=== PATIENT | female | born 1940 | race Caucasian/White ===

== ENCOUNTER 2016-03-27 | Outpatient (CLI) | END 2016-03-27 22:13 | disposition critical access hospital (66) | CPT/HCPCS: A0425; A0429 ==

== ENCOUNTER 2016-03-27 | Emergency (ER) | payer MEDICARE, MEDICAID | END 2016-03-28 00:37 | disposition home or self-care (01) ==

== ENCOUNTER 2016-03-29 12:32 | Outpatient (CLI) | END 2016-03-29 12:33 | disposition home or self-care (01) ==

== ENCOUNTER 2016-04-02 | Outpatient (CLI) | payer MEDICARE, MEDICAID | END 2016-04-02 07:44 | disposition critical access hospital (66) | CPT/HCPCS: A0425; A0429 ==

== ENCOUNTER 2016-04-02 07:46 | Emergency (ER) | payer MEDICARE, MEDICAID | END 2016-04-02 10:17 | disposition home or self-care (01) | DX: E11.649 Type 2 diabetes mellitus with hypoglycemia without coma (principal); E11.51 Type 2 diabetes mellitus with diabetic peripheral angiopathy without gangrene; Z79.4 Long term (current) use of insulin; I11.0 Hypertensive heart disease with heart failure; I50.9 Heart failure, unspecified; I25.2 Old myocardial infarction; Z79.82 Long term (current) use of aspirin; J44.9 Chronic obstructive pulmonary disease, unspecified; F03.90 Unspecified dementia, unspecified severity, without behavioral disturbance, psychotic disturbance, mood disturbance, and anxiety ==

== ENCOUNTER 2016-04-06 | Outpatient (CLI) | payer MEDICARE, MEDICAID | END 2016-04-06 02:44 | disposition EMS.NT | DX: R47.81 Slurred speech (principal) ==

== ENCOUNTER 2016-04-14 | Outpatient (CLI) | payer MEDICARE, MEDICAID | END 2016-04-14 23:33 | disposition EMS.NT | DX: E16.2 Hypoglycemia, unspecified (principal) ==

== ENCOUNTER 2016-04-20 08:50 | Outpatient (CLI) | payer MEDICARE, MEDICAID | END 2016-04-20 08:51 | disposition home or self-care (01) | DX: Z71.3 Dietary counseling and surveillance (principal); E11.8 Type 2 diabetes mellitus with unspecified complications ==

== ENCOUNTER 2016-04-21 | Outpatient (CLI) | payer MEDICARE, MEDICAID | END 2016-04-21 01:46 | disposition EMS.NT | DX: Z03.89 Encounter for observation for other suspected diseases and conditions ruled out (principal) ==

== ENCOUNTER 2016-05-10 23:30 | Outpatient (CLI) | payer MEDICARE, MEDICAID | END 2016-05-10 23:31 | disposition critical access hospital (66) | DX: R06.02 Shortness of breath (principal) | CPT/HCPCS: A0425; A0427 ==

== ENCOUNTER 2016-05-10 23:32 | Emergency (ER) | payer MEDICARE, MEDICAID ==
[2016-05-11] MEDS ORDERED: FUROSEMIDE 40 MG/4 ML VIAL IVP STA (01:16)
[2016-05-11] MEDS ORDERED: FUROSEMIDE 40 MG/4 ML VIAL ONE (01:21)
== END 2016-05-11 03:17 | disposition home or self-care (01) ==
DX: I11.0 Hypertensive heart disease with heart failure (principal); I50.23 Acute on chronic systolic (congestive) heart failure; J44.9 Chronic obstructive pulmonary disease, unspecified; E11.51 Type 2 diabetes mellitus with diabetic peripheral angiopathy without gangrene; Z79.4 Long term (current) use of insulin; I25.10 Atherosclerotic heart disease of native coronary artery without angina pectoris; I25.2 Old myocardial infarction; F03.90 Unspecified dementia, unspecified severity, without behavioral disturbance, psychotic disturbance, mood disturbance, and anxiety; Z79.82 Long term (current) use of aspirin

== ENCOUNTER 2016-06-05 09:20 | Outpatient (CLI) | payer MEDICARE, MEDICAID | END 2016-06-05 09:21 | disposition home or self-care (01) | DX: I12.9 Hypertensive chronic kidney disease with stage 1 through stage 4 chronic kidney disease, or unspecified chronic kidney disease (principal); N18.4 Chronic kidney disease, stage 4 (severe); E11.9 Type 2 diabetes mellitus without complications; E78.5 Hyperlipidemia, unspecified ==

== ENCOUNTER 2016-09-21 04:33 | Outpatient (CLI) | payer MEDICARE, MEDICAID | END 2016-09-21 04:34 | disposition critical access hospital (66) | LOC: EMS 04:33 | PROVIDERS: ATTEND Surgery | DX: R07.9 Chest pain, unspecified (principal); R05 Cough | CPT/HCPCS: A0425; A0427 ==

== ENCOUNTER 2016-09-21 04:39 | Observation (INO) | payer MEDICARE, MEDICAID ==
--- NOTE | 2016-09-21 04:50 | ED Physician Documentation ---
History of Present Illness - Stated complaint Stated Complaint: CHEST DISCOMFORT - Chief complaint Chief Complaint: Cardiac - History obtained from History obtained from: Patient, EMS - History of Present Illness Timing: How many hours ago (3) Pain level max: 2 Pain level now: 1 Improved by: nothing Worsened by: nothing - Additonal information Additional information: Patient is a 76-year-old female who approximately 2-3 hours ago had chest pain, substernal, nonradiating. Also shortness of breath. This is since resolved. Review of Systems Ten Systems: 10 systems reviewed and negative Constitutional: denies: Fever, Chills Nose: denies: Rhinorrhea / runny nose, Congestion Throat: denies: Sore throat Respiratory: denies: Cough, Hemoptysis, Wheezing GI: denies: Abdominal Pain, Nausea, Vomiting, Diarrhea Skin: denies: Rash Musculoskeletal: denies: Neck pain, Back pain Neurologic: denies: Headache PD PAST MEDICAL HISTORY - Past Medical History Cardiovascular: Congestive heart failure, Hypertension, Coronary artery disease , Peripheral Vascular Disease, [place] Respiratory: COPD Neuro: Dementia Endocrine/Autoimmune: Type 2 diabetes GI: Other MANAGER FUNCTIONAL: None : Renal insuffiency HEENT: None Psych: Depression, Post traumatic stress disorder Musculoskeletal: Osteoarthritis Derm: None - Past Surgical History Past Surgical History: Yes Cardiovascular: Other HEENT: Tonsil/Adenoidectomy - Present Medications Home Medications: Ambulatory Orders Medication Instructions Recorded Confirmed Amlodipine Besylate 5 mg PO BID 11/23/15 07/25/16 Aspirin [Aspir-Low] 81 mg PO DAILY 11/23/15 07/25/16 Atorvastatin Calcium 80 mg PO QPM 11/23/15 07/25/16 Furosemide 40 mg PO DAILY 11/23/15 07/25/16 Insulin NPH Hum/Reg Insulin Hm 15 units SQ QDBREAKFAST 11/23/15 07/25/16 [Novolin 70-30 100 Unit/ml Vial] Insulin NPH Hum/Reg Insulin Hm 15 units SQ QDDINNER 11/23/15 07/25/16 [Novolin 70-30 100 Unit/ml Vial] Lisinopril 5 mg PO DAILY 11/23/15 07/25/16 cloNIDine [Catapres] 0.1 mg PO BID #20 tablet 01/15/16 07/25/16 Carvedilol 12.5 mg PO BID 02/17/16 07/25/16 Isosorbide Mononitrate [Isosorbide 60 mg PO DAILY 02/17/16 07/25/16 Mononitrate ER] Colostrum, Bovine [Colostrum] 500 mg PO DAILY 04/05/16 07/25/16 Docusate Sodium 250Mg Capsule 250 mg PO DAILY 04/05/16 07/25/16 [Colace 250Mg Capsule] Fluoxetine HCl [Prozac] 10 mg PO DAILY 04/05/16 07/25/16 Magnesium Oxide [Magnesium] 250 mg PO DAILY 04/05/16 07/25/16 - Allergies Allergies/Adverse Reactions: Allergies Allergy/AdvReac Type Severity Reaction Status Date / Time No Known Drug Allergies Allergy Verified 09/21/16 04:46 - Social History Does the pt smoke?: No Smoking Status: Never smoker Does the pt drink ETOH?: No Does the pt have substance abuse?: No - Immunizations Immunizations are current?: No Immunizations: TDAP >10years/unknown - POLST Patient has POLST: Yes PD ED PE NORMAL - Vitals Vital signs reviewed: Yes - General General: Alert and oriented X 3, No acute distress - HEENT HEENT: Moist mucous membranes - Neck Neck: Supple, no meningeal sign - Cardiac Cardiac: RRR, Strong equal pulses - Respiratory Respiratory: No respiratory distress, Clear bilaterally - Abdomen Abdomen: Soft, Non tender - Back Back: No spinal TTP - Derm Derm: Warm and dry - Extremities Extremities: No calf tenderness / cord - Neuro Neuro: Alert and oriented X 3 - Psych Psych: Normal mood, Normal affect Results - Vitals Vitals: Vital Signs - 24 hr 09/21/16 09/21/16 09/21/16 04:41 04:47 05:35 Temperature 36.2 C L Heart Rate 63 63 57 L Respiratory 14 13 15 Rate Blood Pressure 166/70 H 169/88 H 187/69 H O2 Saturation 96 97 95 Oxygen O2 Source [] Room air O2 Source Room air - EKG (time done) 0454 Rate: Rate (enter#) (60) Rhythm: NSR [place]: Normal Intervals: Normal TN QRS: Normal, LVH (with repol abnormality) Computer interpretation: Agree with computer - Labs Labs: Laboratory Tests 09/21/16 09/21/16 09/21/16 05:02 05:02 05:02 WBC 8.0 RBC 3.70 L Hgb 11.0 L Hct 32.1 L MCV 86.9 MCH 29.7 MCHC 34.1 RDW 14.0 Plt Count 270 MPV 8.0 Neut # 4.4 Lymph # 2.2 [place] # 0.8 Eos # 0.4 Baso # 0.1 Absolute Nucleated RBC 0.00 Nucleated RBCs 0.0 Sodium 139 Potassium 4.3 Chloride 103 Carbon Dioxide 26 Anion Gap 10.0 BUN 46 H Creatinine 2.2 H Estimated GFR (MDRD) 22 L Glucose 103 H Calcium 9.3 Total Bilirubin 0.5 AST 19 ALT 13 Alkaline Phosphatase 67 Troponin I 0.14 B-Natriuretic Peptide Total Protein 6.9 Albumin 3.9 Globulin 3.0 Albumin/Globulin Ratio 1.3 Lipase 32 09/21/16 05:02 WBC RBC Hgb Hct MCV MCH MCHC RDW Plt Count MPV Neut # Lymph # [place] # Eos # Baso # Absolute Nucleated RBC Nucleated RBCs Sodium Potassium Chloride Carbon Dioxide Anion Gap BUN Creatinine Estimated GFR (MDRD) Glucose Calcium Total Bilirubin AST ALT Alkaline Phosphatase Troponin I B-Natriuretic Peptide 132 H Total Protein Albumin Globulin Albumin/Globulin Ratio Lipase - Rads (name of study) cxr Radiology: Prelim report reviewed, EMP read contemporaneously, See rad report ( no acute disease) PD MEDICAL DECISION MAKING - ED course Complexity details: reviewed results, re-evaluated patient, considered differential, d/w patient ED course: Patient is a 76-year-old female who presents to the emergency department with atypical chest pain today, but is found to have a mild elevation of her troponin , though still within the indeterminate range. Looking back through her records it appears that this is occurred several times before. She is well- appearing, nontoxic. Afebrile. No symptoms in the emergency department. Sitting quietly and reading a book. Discussed the case with Dr. Bradshaw and we will admit the patient for serial cardiac enzymes and rule out FL. This document was made in part using voice recognition software. While efforts are made to proofread this document, sound alike and grammatical errors may occur. Departure - Departure Disposition: ED Place in Observation Clinical Impression: Chest pain, Diabetes Condition: Stable
[2016-09-21 05:11] LABS: BASOPHILS # (AUTO) 0.1 10^3/uL (0.0-0.1); BASOPHILS % (AUTO) 1.2 %; EOSINOPHILS # (AUTO) 0.4 10^3/uL (0.0-0.7); EOSINOPHILS % (AUTO) 5.4 %; HCT - HEMATOCRIT 32.1 % (37.0-47.0); LYMPHOCYTES # (AUTO) 2.2 10^3/uL (1.5-3.5); LYMPHOCYTES % (AUTO) 27.7 %; MEAN CORPUSCULAR HEMOGLOBIN 29.7 pg (27.0-31.0); MEAN CORPUSCULAR HGB CONC 34.1 g/dL (32.0-36.0); MEAN CORPUSCULAR VOLUME 86.9 fL (81.0-99.0); MONOCYTES # (AUTO) 0.8 10^3/uL (0.0-1.0); MONOCYTES % (AUTO) 10.2 %; NEUTROPHILS # (AUTO) 4.4 10^3/uL (1.5-6.6); NEUTROPHILS % (AUTO) 55.5 %
[2016-09-21 05:24] LABS: ALBUMIN/GLOBULIN RATIO 1.3 (1.0-2.2); BILIRUBIN,TOTAL 0.5 mg/dL (0.2-1.0); CALCIUM 9.3 mg/dL (8.5-10.3); CREATININE 2.2 mg/dL (0.4-1.0); POTASSIUM 4.3 mmol/L (3.5-5.0); TOTAL PROTEIN 6.9 g/dL (6.7-8.2)
--- NOTE | 2016-09-21 05:33 | XRAY Preliminary Report ---
Exam: XR Chest 1 View IMPRESSION: Negative single view chest. [facility] SITE ID: [id number]
--- NOTE | 2016-09-21 05:35 | XRAY Report ---
EXAM: CHEST RADIOGRAPHY EXAM DATE: 09/21/2016 05:21 AM. CLINICAL HISTORY: Chest pain. COMPARISON: 05/11/2016. TECHNIQUE: 1 view. FINDINGS: Lungs/Pleura: No focal opacities evident. No pleural effusion. No pneumothorax. Mediastinum: Within exam limitations, cardiomediastinal contour is normal. Other: None. IMPRESSION: Negative single view chest. [facility] Referring Provider Line: [phone] SITE ID: [id number]
[2016-09-21] MEDS ORDERED: SODIUM CHLORIDE FLUSH 0.9% 10 ML SYRINGE IVP PRN (05:49)
[2016-09-21] MEDS ORDERED: NITROGLYCERIN SL 0.4 MG TABLET SL PRN (05:49)
[2016-09-21] MEDS ORDERED: ONDANSETRON 4 MG/2 ML VIAL IVP PRN (05:49)
[2016-09-21] MEDS ORDERED: ACETAMINOPHEN 325 MG TABLET PO PRN (05:49)
[2016-09-21] MEDS ORDERED: PROCHLORPERAZINE 10 MG/2 ML VIAL IVP PRN (05:49)
[2016-09-21] MEDS ORDERED: HYDROcod/ACETAM 5/325 MG TABLET PO PRN (05:49)
--- NOTE | 2016-09-21 06:24 | HISTORY & PHYSICAL EXAMINATION ---
Chief Complaint - Chief Complaint Chief Complaint: chest pain History of Present Illness - Admitted From Admitted From:: emergency department - History Obtained From Records Reviewed: yes History obtained from: patient Exam Limitations: none - History of Present Illness HPI Comment/Other: Patient is a very pleasant 76-year-old female with a past medical history significant for congestive heart failure with a reduced ejection fraction of 45% , hypertension, hyperlipidemia, poorly controlled type II diabetes, coronary artery disease with VA in 2015, prior history of TIA and CTD stage IV who presented to the emergency department today with a complaint of chest pain. The patient states that for the last week or 2 she's been having chest congestion and coughing. States that there's been mucus buildup in her throat and she's also having a sore throat. The patient states that with all the coughing she is began having pain in the sides of her chest. She states that tonight while she was in bed she began having substernal chest pressure. She states that it was a 3/10, pressure-like, nonradiating. She felt as though it was her congestive heart failure and she was concerned about it becoming much worse therefore she called 911. She states that she had no associated nausea, diaphoresis, palpitations, shortness of air or coughing. The patient states that she did feel congested in she did take some Lasix at home. The patient denied any fevers or chills. On route to the emergency department the patient was given a dose of nitroglycerin and an aspirin. The patient states by the time she arrived in the emergency department her pain was completely resolved. On presentation to the emergency department the patient was afebrile and hypertensive otherwise her vital signs were within normal limits. The patient's initial lab work revealed a normal CBC, creatinine of 2.2 in your the patient's baseline, BNP of 132 and a troponin of 0.14 which is near the patient's baseline. The patient's EKG was unchanged from her previous EKGs. The patient also had a chest x-ray which showed no acute normality in the chest. Given the patient's risk factors and her troponin of 0.14 the emergency room physician felt it necessary to place the patient in observation for a chest pain rule out. Review of Systems - Constitutional Constitutional: denies: Fatigue, Fever, Chills, Malaise, Weakness, Poor appetite , Diaphoresis, Night sweats, Weight gain, Weight loss - Eyes Eyes: denies: Pain, Irritation, Amaurosis, Blurred vision, Field loss, Vision loss, Dipolpia - Ears, Nose & Throat Ears, Nose & Throat: reports: Sore throat. denies: Ear pain, Hearing loss, Tinnitus, Vertigo, Nasal pain, Nasal obstruction, Nasal congestion, Hoarseness - Cardiovascular Cariovascular: reports: Chest pain. denies: Irregular heart rate, Palpitations , Edema, Lightheadedness, Syncope, Exertional dyspnea, Decr. exercise tolerance , Orthopnea - Respiratory Respiratory: reports: Cough, Sputum production. denies: Wheezing, Hemoptysis, Orthopnea, SOB at rest, SOB with exertion, Pleuritic pain - Gastrointestinal Gastrointestinal: denies: Abdominal pain, Abdominal distention, Constipation, Diarrhea, Change in bowel habits, Black stools, Bloody stools, Nausea, Vomiting , Peter blood emesis, Coffee grounds emesis, Bloating, Poor appetite - Genitourinary Genitourinary: denies: Dysuria, Frequency, Urgency, Hematuria, Incontinence, Flank pain, Nocturia - Musculoskeletal Musculoskeletal: denies: Muscle pain, Back pain, Muscle aches, Stiffness, Limited range of motion, Muscle weakness, Gout, Joint pain, Joint swelling - Integumentary Integumentary: denies: Rash, Pruritis, Lesions, Dryness - Neurological Neurological: denies: General weakness, Focal weakness, Headache, Dizziness, Memory problems, Abnormal gait, Seizures, Slurred speech - Psychiatric Psychiatric: denies: Depression, Anxiety, Suicidal - Endocrine Endocrine: denies: Polyuria, Polydypsia, Polyphagia, Intolerance to cold, Intolerance to heat - Hematologic/Lymphatic Hematologic/Lymphatic: denies: Anemia, Lymphadenopathy History - Past Medical History Cardiovascular: reports: Congestive heart failure, Hypertension, Coronary artery disease, Peripheral Vascular Disease, [place] Respiratory: reports: COPD Neuro: reports: Dementia Endocrine/Autoimmune: reports: Type 2 diabetes GI: reports: Other 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 TIA. 2. COPD. 3. Congestive heart failure with a reduced EF. 4. Hypertension. 5. Hyperlipidemia. 6. Type II diabetes. 7. Retinopathy. 8. Peripheral neuropathy. 9. Chronic kidney disease stage IV. 10. Osteoarthritis. 11. Coronary artery disease with VA in 2015. 12. Dementia - Past Surgical History Cardiovascular: reports: Other HEENT: reports: Tonsil/Adenoidectomy Other past surgical history: 1. Tonsillectomy. 2. Adenoidectomy. 3. Right endarterectomy - Family & Social History Family History: Mother: (VA at 82 (mom) stroke with aneurysm at 55 (dad )), VA (at 82), Father: , CVA/TIA (at 55) Family History Comment/Other: Her mother of an VA at the age of 82. Father of a stroke with an aneurysm at the age of 55. Living arrangement: At home Living Situation: With caregiver(s) (2 caregivers) Social History Notes: The patient lives in [place] just across [address] from the hospital in [facility]. She lives alone but does have 2 caregivers. She uses a walker at home. She is very independent. She does not have any family in the area but does have a sister in [place]. The patient is originally from the [facility]. She traveled throughout the country as her was in the [employer]. She traveled throughout the country as her was in the [employer]. She is . She has 3 children. 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 She states that she is never smoked, does not drink alcohol and denies any illicit drug use. - Substance History Use: Uses substance without health or social issues: NONE Abuse: Recurrent use of substance despite neg consequences: NONE Dependence: Experiences withdrawal or developed tolerances: NONE - POLST Patient has POLST: Yes POLST Status: Full Code Meds/Allgy - Home Medications Home Medications: Ambulatory Orders Medication Instructions Recorded Confirmed Amlodipine Besylate 5 mg PO BID 11/23/15 07/25/16 Aspirin [Aspir-Low] 81 mg PO DAILY 11/23/15 07/25/16 Atorvastatin Calcium 80 mg PO QPM 11/23/15 07/25/16 Furosemide 40 mg PO DAILY 11/23/15 07/25/16 Insulin NPH Hum/Reg Insulin Hm 15 units SQ QDBREAKFAST 11/23/15 07/25/16 [Novolin 70-30 100 Unit/ml Vial] Insulin NPH Hum/Reg Insulin Hm 15 units SQ QDDINNER 11/23/15 07/25/16 [Novolin 70-30 100 Unit/ml Vial] Lisinopril 5 mg PO DAILY 11/23/15 07/25/16 cloNIDine [Catapres] 0.1 mg PO BID #20 tablet 01/15/16 07/25/16 Carvedilol 12.5 mg PO BID 02/17/16 07/25/16 Isosorbide Mononitrate [Isosorbide 60 mg PO DAILY 02/17/16 07/25/16 Mononitrate ER] Colostrum, Bovine [Colostrum] 500 mg PO DAILY 04/05/16 07/25/16 Docusate Sodium 250Mg Capsule 250 mg PO DAILY 04/05/16 07/25/16 [Colace 250Mg Capsule] Fluoxetine HCl [Prozac] 10 mg PO DAILY 04/05/16 07/25/16 Magnesium Oxide [Magnesium] 250 mg PO DAILY 04/05/16 07/25/16 - Allergies Allergies/Adverse Reactions: Allergies Allergy/AdvReac Type Severity Reaction Status Date / Time No Known Drug Allergies Allergy Verified 09/21/16 04:46 Exam - Vital Signs Reviewed Vital Signs: Yes Vital Signs: Vital Signs x48h Temp Pulse Resp BP Pulse Ox 09/21/16 05:35 57 L 15 187/69 H 95 09/21/16 04:47 63 13 169/88 H 97 09/21/16 04:41 36.2 C L 63 14 166/70 H 96 - Physical Exam General Appearance: positive: No acute distress, Alert Eyes Bilateral: positive: Normal inspection, PERRL, EOMI, No lid inflammation, Conjunctivae nml, No scleral icterus ENT: positive: ENT inspection nml, Pharynx nml, No signs of dehydration. negative: Purulent nasal drainage, Pharyngeal erythema, Oral lesions Neck: positive: Nml inspection, Thyroid nml, No JVD, Trachea midline. negative : Thyromegaly, Lymphadenopathy (R), Lymphadenopathy (L), Carotid bruit, Tracheal deviation Respiratory: positive: Chest non-tender, No respiratory distress, Breath sounds nml. negative: Wheezes, Rales, Rhonchi Cardiovascular: positive: Regular rate & rhythm, No murmur, No gallop Peripheral Pulses: positive: 2+ Abdomen: positive: Non-tender, No organomegaly, Nml bowel sounds, No distention. negative: Guarding, Rebound, Hepatomegaly Back: positive: Nml inspection. negative: CVA tenderness (R), CVA tenderness (L ) Skin: positive: Color nml, No rash, Warm. negative: Cyanosis, Pallor Extremities: positive: Non-tender, Full ROM, Nml appearance, No pedal edema. negative: Joint swelling Neurologic/Psychiatric: positive: Oriented x3, CN's nml (2-12), Motor nml, Sensation nml, Mood/affect nml Conclusion/Plan - Problem List (1) Chest pain Conclusion/Plan: Patient presented with chest pain while at rest that was pressure like located substernally, without radiation and without any associated symptoms. She states it was a 3/10 and was relieved with aspirin and nitro given to her by paramedics. She has many risk factors including age, diabetes, hypertension, hyperlipidemia, previous VA. Her initial EKG was unchanged from previous and initial troponin was 0.14 which is near her baseline due to her CKD. Plan: Serial Trops x2 q6 hours Echo Tele monitoring Nitro prn ASA Lipitor (2) Diabetes type 2, uncontrolled Conclusion/Plan: Patient blood glucose is well controlled today unlike on previous hospitalization Will continue home dose of lantus Diabetic diet Will place on sliding scale insulin Check HbA1C Monitor BG ACHS Qualifiers: Diabetes mellitus complication detail: with polyneuropathy Diabetes mellitus terminal operations manager insulin use: with terminal operations manager use (3) CHF (congestive heart failure) Conclusion/Plan: No currently in an exacerbation On optimal medical treatment with coreg, lisinopril and lasix Continue home meds Echo as previous echo greater than 1 year ago Qualifiers: Congestive heart failure type: systolic (4) Chronic kidney disease, stage 4 (severe) Conclusion/Plan: Central 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
[2016-09-21] MEDS: INSULIN ASPART 300 UNIT/3 ML PEN SUBQ SCH ×4 (07:39→20:49)
[2016-09-21] MEDS: PANTOPRAZOLE 40 MG TABLET PO SCH (07:43)
[2016-09-21] MEDS ORDERED: ISOSORBIDE MONONITRATE ER 30 MG TABLET PO SCH (09:00)
[2016-09-21] MEDS ORDERED: LISINOPRIL 5 MG TABLET PO SCH (09:00)
[2016-09-21] MEDS ORDERED: FLUoxetine 10 MG CAPSULE PO SCH (09:00)
[2016-09-21] MEDS ORDERED: [UNRECOGNIZED DRUG - OTHER] PO SCH (09:00)
[2016-09-21] MEDS ORDERED: amLODIPine 5 MG TABLET PO SCH (09:00)
[2016-09-21] MEDS ORDERED: CARVEDILOL 12.5 MG TABLET PO SCH (09:00)
[2016-09-21] MEDS: FUROSEMIDE 40 MG TABLET PO SCH (10:35)
[2016-09-21] MEDS: INSULIN 70/30 HUMAN 100 UNIT/1 ML 10 ML MDV SUBQ SCH (11:05)
[2016-09-21] MEDS: MAGNESIUM OXIDE 400 MG TABLET PO SCH (11:07)
[2016-09-21] MEDS: ASPIRIN EC 81 MG TABLET PO SCH (11:08)
[2016-09-21] MEDS: cloNIDine 0.1 MG TABLET PO SCH ×2 (11:15→20:48)
[2016-09-21] MEDS: POLYETHYLENE GLYCOL 3350 17 GM PACKET PO SCH (11:18)
[2016-09-21] MEDS: SODIUM CHLORIDE FLUSH 0.9% 10 ML SYRINGE IVP SCH ×3 (11:19→20:49)
[2016-09-21] MEDS: HEPARIN 5,000 UNIT/ML VIAL SUBQ SCH ×2 (11:21→20:48)
[2016-09-21 11:44] LABS: HEMOGLOBIN A1C 0.76 g/dL
[2016-09-21] MEDS: SODIUM CHLORIDE 0.9% 500 ML IV ONE (14:45)
--- NOTE | 2016-09-21 16:29 | PROVIDER PROGRESS NOTE ---
Assessment/Plan - Problem List (1) Chest pain Assessment/Plan: (1) Chest pain Conclusion/Plan: Patient presented with chest pain while at rest that was pressure like located substernally, without radiation and without any associated symptoms. She states it was a 3/10 and was relieved with aspirin and nitro given to her by paramedics. She has many risk factors including age, diabetes, hypertension, hyperlipidemia, previous [place]. Her initial EKG was unchanged from previous and initial troponin was 0.14 which is near her baseline due to her CKD. CP resolved Plan: Serial Trops x2 are negative Echo pending # Htn on multiple bp meds, sx hypotension after receiving pt's home meds pt unable to tell me what she is taking at home, says she is confused about her medications. Will review home meds with pharmacy and hold most meds until rx is indicated. 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 - not billed - Current Meds Current Meds: Current Medications Generic Name Dose Route Start Last Admin Trade Name Freq PRN Reason Stop Dose Admin Aspirin 81 mg 09/21/16 09:00 09/21/16 11:08 Ecotrin PO 81 mg DAILY MARNI Administration Clonidine HCl 0.1 mg 09/21/16 09:00 09/21/16 11:15 Catapres PO 0.1 mg BID MARNI Administration Fluoxetine HCl 10 mg 09/21/16 09:00 09/21/16 11:13 Prozac PO Not Given DAILY MARNI Furosemide 40 mg 09/21/16 09:00 09/21/16 10:35 Lasix PO Not Given DAILY MARNI Heparin Sodium (Porcine) 5,000 unit 09/21/16 09:00 09/21/16 11:21 SUBQ 5,000 unit BID MARNI Administration Insulin Aspart 1 - 9 unit 09/21/16 08:00 09/21/16 12:28 Novolog SUBQ 3 unit 0800,1200,1700,2100 MARNI Administration Protocol Insulin Human Isoph/Insulin Regular 15 unit 09/21/16 10:00 09/21/16 11:05 Novolin SUBQ 15 unit QDBREAKFAST MARNI Administration Isosorbide Mononitrate 60 mg 09/21/16 09:00 09/21/16 11:16 Imdur PO 60 mg DAILY MARNI Administration Magnesium Oxide 400 mg 09/21/16 08:00 09/21/16 11:07 Mag Ox PO 400 mg DAILYWM MARNI Administration Pantoprazole Sodium 40 mg 09/21/16 07:00 09/21/16 07:43 Protonix PO 40 mg QDAC MARNI Administration Polyethylene Glycol 17 gm 09/21/16 09:00 09/21/16 11:18 Miralax PO Not Given DAILY [facility] Sodium Chloride 10 ml 09/21/16 06:00 09/21/16 15:55 Normal Saline Flush 0.9% IVP Not Given Q8HR MARNI - Lab Result Lab results reviewed: Yes Fish Bone Diagrams: 09/21/16 05:02 09/21/16 05:02 - Additional Planning My Orders: My Active Orders 09/21/16 13:38 Carvedilol [Coreg] 6.25 mg PO BID Subjective - Subjective Patient Reports: Other Nursing Reports: Other (pt reported mild chest discomfort on admit. RN reports pt bp dropped significantly after she was given medications she was thought to be taking at home. Was sx and improved with 500 NS bolus) Objective Vital Signs: Vital Signs - 24 hr 09/21/16 09/21/16 09/21/16 06:25 06:27 06:51 Temperature 36.5 C 36.5 C Heart Rate 63 Heart Rate [ 55 L 55 L Brachial] Respiratory 18 18 18 Rate Blood Pressure 174/71 H Blood Pressure 169/78 H 169/78 H [Left Brachial artery] Blood Pressure 196/75 H 196/75 H [Right Brachial artery] O2 Saturation 99 99 99 09/21/16 09/21/16 09/21/16 07:53 11:38 13:40 Temperature 36.7 C 36.7 C Heart Rate Heart Rate [ 55 L 63 Brachial] Respiratory 18 17 Rate Blood Pressure Blood Pressure 180/75 H 76/50 L [Left Brachial artery] Blood Pressure 172/73 H 80/60 L [Right Brachial artery] O2 Saturation 100 99 09/21/16 14:20 Temperature Heart Rate Heart Rate [ Brachial] Respiratory Rate Blood Pressure Blood Pressure [Left Brachial artery] Blood Pressure 90/50 L [Right Brachial artery] O2 Saturation Oxygen O2 Source Room air I&O (Last 24 Hrs): Intake and Output Totals x24h 09/19/16 09/20/16 09/21/16 23:59 23:59 23:59 Intake Total 776 Balance 776 General: Alert, No acute distress, Other (talkative) - Results Results: Laboratory Results WBC 8.0 x10^3/uL (4.8-10.8) 09/21/16 05:02 RBC 3.70 10^6/uL (4.20-5.40) L 09/21/16 05:02 Hgb 11.0 g/dL (12.0-16.0) L 09/21/16 05:02 Hct 32.1 % (37.0-47.0) L 09/21/16 05:02 MCV 86.9 fL (81.0-99.0) 09/21/16 05:02 MCH 29.7 pg (27.0-31.0) 09/21/16 05:02 MCHC 34.1 g/dL (32.0-36.0) 09/21/16 05:02 RDW 14.0 % (12.0-15.0) 09/21/16 05:02 Plt Count 270 10^3/uL (130-450) 09/21/16 05:02 MPV 8.0 fL (7.9-10.8) 09/21/16 05:02 Neut # 4.4 10^3/uL (1.5-6.6) 09/21/16 05:02 Lymph # 2.2 10^3/uL (1.5-3.5) 09/21/16 05:02 Christian # 0.8 10^3/uL (0.0-1.0) 09/21/16 05:02 Eos # 0.4 10^3/uL (0.0-0.7) 09/21/16 05:02 Baso # 0.1 10^3/uL (0.0-0.1) 09/21/16 05:02 Absolute Nucleated RBC 0.00 x10^3/uL 09/21/16 05:02 Nucleated RBCs 0.0 /100WBC 09/21/16 05:02 Sodium 139 mmol/L (135-145) 09/21/16 05:02 Potassium 4.3 mmol/L (3.5-5.0) 09/21/16 05:02 Chloride 103 mmol/L (101-111) 09/21/16 05:02 Carbon Dioxide 26 mmol/L (21-32) 09/21/16 05:02 Anion Gap 10.0 (6-13) 09/21/16 05:02 BUN 46 mg/dL (6-20) H 09/21/16 05:02 Creatinine 2.2 mg/dL (0.4-1.0) H 09/21/16 05:02 Estimated GFR (MDRD) 22 (>89) L 09/21/16 05:02 Glucose 103 mg/dL (70-100) H 09/21/16 05:02 Glycated Hemoglobin 8.1 % (4.6-6.2) H 09/21/16 11:00 Estim Average Glucose 186 (70-100) H 09/21/16 11:00 Calcium 9.3 mg/dL (8.5-10.3) 09/21/16 05:02 Total Bilirubin 0.5 mg/dL (0.2-1.0) 09/21/16 05:02 AST 19 IU/L (10-42) 09/21/16 05:02 ALT 13 IU/L (10-60) 09/21/16 05:02 Alkaline Phosphatase 67 IU/L (42-121) 09/21/16 05:02 Troponin I 0.14 ng/mL (<0.49) 09/21/16 11:00 B-Natriuretic Peptide 132 pg/mL (5-100) H 09/21/16 05:02 Total Protein 6.9 g/dL (6.7-8.2) 09/21/16 05:02 Albumin 3.9 g/dL (3.2-5.5) 09/21/16 05:02 Globulin 3.0 g/dL (2.1-4.2) 09/21/16 05:02 Albumin/Globulin Ratio 1.3 (1.0-2.2) 09/21/16 05:02 Lipase 32 U/L (22-51) 09/21/16 05:02
[2016-09-21] MEDS ORDERED: INSULIN 70/30 HUMAN 100 UNIT/1 ML 10 ML MDV SUBQ SCH (17:00)
[2016-09-21] MEDS: CARVEDILOL 3.125 MG TABLET PO SCH (20:48)
[2016-09-21] MEDS ORDERED: ATORVASTATIN 40 MG TABLET PO SCH ×2 (21:00)
[2016-09-22] MEDS ORDERED: ZOLPIDEM 5 MG TABLET PO PRN (00:08)
[2016-09-22] MEDS: PANTOPRAZOLE 40 MG TABLET PO SCH (06:15)
[2016-09-22] MEDS: SODIUM CHLORIDE FLUSH 0.9% 10 ML SYRINGE IVP SCH ×2 (06:16→12:33)
[2016-09-22 07:02] LABS: BASOPHILS # (AUTO) 0.1 10^3/uL (0.0-0.1); BASOPHILS % (AUTO) 0.7 %; EOSINOPHILS # (AUTO) 0.5 10^3/uL (0.0-0.7); EOSINOPHILS % (AUTO) 6.5 %; HCT - HEMATOCRIT 34.8 % (37.0-47.0); HGB - HEMOGLOBIN 11.3 g/dL (12.0-16.0); MEAN CORPUSCULAR HEMOGLOBIN 28.8 pg (27.0-31.0); MEAN CORPUSCULAR HGB CONC 32.6 g/dL (32.0-36.0); MEAN CORPUSCULAR VOLUME 88.2 fL (81.0-99.0); MEAN PLATELET VOLUME 8.4 fL (7.9-10.8); MONOCYTES # (AUTO) 0.5 10^3/uL (0.0-1.0); MONOCYTES % (AUTO) 7.2 %; NEUTROPHILS # (AUTO) 3.2 10^3/uL (1.5-6.6); NEUTROPHILS % (AUTO) 44.6 %; RED BLOOD COUNT 3.94 10^6/uL (4.20-5.40); RED CELL DISTRIBUTION WIDTH 13.8 % (12.0-15.0); UNCORRECTED WHITE BLOOD COUNT 7.3 x10^3/uL; WHITE BLOOD COUNT 7.3 x10^3/uL (4.8-10.8)
[2016-09-22 07:10] LABS: ALBUMIN/GLOBULIN RATIO 1.1 (1.0-2.2); BILIRUBIN,TOTAL 0.6 mg/dL (0.2-1.0); CALCIUM 9.4 mg/dL (8.5-10.3); CREATININE 2.2 mg/dL (0.4-1.0); POTASSIUM 4.3 mmol/L (3.5-5.0); TOTAL PROTEIN 6.8 g/dL (6.7-8.2)
[2016-09-22] MEDS ORDERED: ISOSORBIDE MONONITRATE ER 30 MG TABLET PO SCH (09:00)
[2016-09-22] MEDS: INSULIN 70/30 HUMAN 100 UNIT/1 ML 10 ML MDV SUBQ SCH (09:19)
[2016-09-22] MEDS: INSULIN ASPART 300 UNIT/3 ML PEN SUBQ SCH ×2 (09:19→12:32)
[2016-09-22] MEDS: FUROSEMIDE 40 MG TABLET PO SCH (09:30)
[2016-09-22] MEDS: CARVEDILOL 3.125 MG TABLET PO SCH (09:32)
[2016-09-22] MEDS: cloNIDine 0.1 MG TABLET PO SCH (09:32)
[2016-09-22] MEDS: POLYETHYLENE GLYCOL 3350 17 GM PACKET PO SCH (09:46)
[2016-09-22] MEDS: ASPIRIN EC 81 MG TABLET PO SCH (09:46)
[2016-09-22] MEDS: MAGNESIUM OXIDE 400 MG TABLET PO SCH (09:46)
[2016-09-22] MEDS: HEPARIN 5,000 UNIT/ML VIAL SUBQ SCH (09:47)
[2016-09-22 11:41] VITALS: BP 157/70
--- NOTE | 2016-09-22 12:59 | Discharge Plan ---
Discharge Plan Disposition: 01 Home, Self Care Condition: Stable Diet: Diabetic Additional Instructions or Follow Up instructions: Please take all of your medication to your doctor to review. No Smoking: If you smoke, Please STOP! Call for help.
--- NOTE | 2016-09-23 11:14 | DISCHARGE SUMMARY ---
Date of admit 09/21/16 Date of discharge 09/22/16 DISCHARGE DIAGNOSES 1. Chest pain. 2. Type 2 diabetes, uncontrolled. 3. Congestive heart failure. 4. Chronic kidney disease, stage IV. 5. Medical noncompliance. BRIEF HISTORY OF PRESENT ILLNESS: Patient is a 76-year-old female with a past medical history significant for congestive heart failure with an EF at 45%, hypertension, hyperlipidemia, poorly controlled type 2 diabetes, coronary artery disease with [place] in 2015, prior history of TIA, and chronic kidney disease , who presented to the emergency department with vague complaint of chest pain. She states she thought she had congestive heart failure and was admitted for chest pain. HOSPITAL COURSE 1. Chest pain. Serial troponins were 0.14 with no increase. The patient had no further chest pain. She was monitored on Telemetry with no significant events. She had an echocardiogram, which showed overall left ventricular systolic function mildly impaired with an ejection fraction of 45% to 50%, and mild global hypokinesis. 2. Hypertension. Patient is on multiple blood pressure medications listed on her medication reconciliation. These were continued on admission including carvedilol, Lasix, lisinopril, Norvasc, Imdur, and clonidine. The patient received these medications and had symptomatic hypotension with a systolic blood pressure down to 70. She was given a bolus of 500 of normal saline with improvement of her symptoms and then another bolus of 250 IV normal saline. All of her blood pressure medications were held and after discussion with the patient and her care provider, the patient apparently does not take her blood pressure medication at home, she is very skeptical of physicians and does not trust their recommendations. Her care provider, who I called today, says that she refuses to take blood pressure medications. Her primary care provider wanted her to bring her medications to the visit and the patient would not do this. The patient apparently fired her primary care provider and is considering seeing a naturopathic doctor. I explained to the patient that it was difficult to provide safe care to her unless we, the providers, know what medications that she is taking. I stressed the importance of compliance with medications and if she does not want to take something that she just needs to make sure that her doctor is aware of this. The transplant case manager did provide the patient with recommendations for a new primary care provider. 3. Type 2 diabetes, uncontrolled. The patient was continued on home dose of Lantus. She was on a diabetic diet and a sliding scale insulin, and remained stable. 4. Congestive heart failure. No evidence of acute exacerbation. She was maintained on her Coreg, lisinopril and Lasix; however, they were held when she had a drop in her blood pressure. On discharge I recommended that she continue the Lasix, carvedilol and lisinopril, although if she is symptomatic then these doses will have to be decreased. 5. Chronic kidney disease, stage IV. Creatinine baseline at presentation. 6. Medical noncompliance. Encouraged the patient to find a primary care provider that she is willing to work with. I contacted her care provider, Yamel , who has worked with the patient in the past but is currently on leave but did provide useful insight. The patient was discharged home in stable condition. She is high risk for readmission due to medication noncompliance and also at risk of medication error. ACCORDING TO HER CARE PROVIDER - PT IS NOT TAKING ANY OF HER MEDICATIONS AT HOME. DISCHARGE MEDICATIONS 1. Continue aspirin 81 mg daily. 2. Carvedilol 12.5 mg twice a day. 3. Lasix 40 mg daily. 4. Insulin NPH/Regular 15 units twice daily. 5. Lisinopril 5 mg daily. 6. Magnesium 250 mg daily. 7. Patient was told to stop taking amlodipine, isosorbide and clonidine. Greater than 40 minutes spent on discharge of the patient. MTDD
== END 2016-09-22 14:44 | disposition home or self-care (01) ==
LOC: EDUNIT# → ED 04:39 → MS 05:49
PROVIDERS: ADMIT Internal Medicine; ATTEND Internal Medicine
DX: R07.89 Other chest pain (principal); E11.65 Type 2 diabetes mellitus with hyperglycemia; E11.22 Type 2 diabetes mellitus with diabetic chronic kidney disease; I13.0 Hypertensive heart and chronic kidney disease with heart failure and stage 1 through stage 4 chronic kidney disease, or unspecified chronic kidney disease; N18.4 Chronic kidney disease, stage 4 (severe); I50.20 Unspecified systolic (congestive) heart failure; I95.2 Hypotension due to drugs; T44.7X5A Adverse effect of beta-adrenoreceptor antagonists, initial encounter; T50.1X5A Adverse effect of loop [high-ceiling] diuretics, initial encounter; T46.4X5A Adverse effect of angiotensin-converting-enzyme inhibitors, initial encounter; T46.1X5A Adverse effect of calcium-channel blockers, initial encounter; T46.5X5A Adverse effect of other antihypertensive drugs, initial encounter; Y92.239 Unspecified place in hospital as the place of occurrence of the external cause; E78.5 Hyperlipidemia, unspecified; I25.10 Atherosclerotic heart disease of native coronary artery without angina pectoris; I73.9 Peripheral vascular disease, unspecified; E11.319 Type 2 diabetes mellitus with unspecified diabetic retinopathy without macular edema; E11.42 Type 2 diabetes mellitus with diabetic polyneuropathy; I25.2 Old myocardial infarction; F03.90 Unspecified dementia, unspecified severity, without behavioral disturbance, psychotic disturbance, mood disturbance, and anxiety; F32.9 Major depressive disorder, single episode, unspecified; F43.10 Post-traumatic stress disorder, unspecified; J44.9 Chronic obstructive pulmonary disease, unspecified; Z79.82 Long term (current) use of aspirin; Z79.4 Long term (current) use of insulin; Z86.73 Personal history of transient ischemic attack (TIA), and cerebral infarction without residual deficits; Z91.14 Patient's other noncompliance with medication regimen; Z82.3 Family history of stroke; Z82.49 Family history of ischemic heart disease and other diseases of the circulatory system
CPT/HCPCS: 36415; 71010; 80053; 83036; 83690; 83880; 84484; 85025; 93005; 93306; 96360; 96361; 99284; 99285; A9270; G0378; J1815

== ENCOUNTER 2016-10-23 08:37 | Outpatient (CLI) | payer MEDICARE, MEDICAID ==
[2016-10-23 09:49] LABS: ALBUMIN/GLOBULIN RATIO 1.3 (1.0-2.2); BILIRUBIN,TOTAL 0.7 mg/dL (0.2-1.0); CALCIUM 9.7 mg/dL (8.5-10.3); POTASSIUM 4.5 mmol/L (3.5-5.0); TOTAL PROTEIN 7.6 g/dL (6.7-8.2)
[2016-10-23 10:32] LABS: HEMOGLOBIN A1C 0.76 g/dL
== END 2016-10-23 08:38 | disposition home or self-care (01) ==
LOC: LAB 08:37
PROVIDERS: ATTEND Family Medicine
DX: E78.5 Hyperlipidemia, unspecified (principal); N18.4 Chronic kidney disease, stage 4 (severe); E11.9 Type 2 diabetes mellitus without complications; I10 Essential (primary) hypertension
CPT/HCPCS: 36415; 80053; 83036

== ENCOUNTER 2016-10-27 07:12 | Emergency (ER) | payer MEDICARE, MEDICAID ==
[2016-10-27 07:20] VITALS: BP 152/78
--- NOTE | 2016-10-27 07:45 | ED Physician Documentation ---
History of Present Illness - Stated complaint Stated Complaint: LEG PX - Chief complaint Chief Complaint: Ext Problem - History obtained from History obtained from: Patient - Additonal information Additional information: Patient is a 76-year-old female who lives across [address]. She is here with a complaint of pain in her legs bilaterally that radiates laterally up the legs and her buttocks bilaterally. This pain is not worse at night is not made worse by walking. She thinks sitting tends to make it worse when she gets up and walks around it gets better. She is concerned because she had a life screening examination included ultrasound of various areas of her body including her legs. The study demonstrated peripheral arterial disease she says. For this reason she is concerned about the leg pain. She does have a long history of diabetes which she controls well and, however, does have mild diabetic neuropathy. Review of systems: For pertinent positive and negatives in the review of systems please see the history of present illness, otherwise all other systems have been reviewed and are negative. Dragon disclaimer: Parts of this medical record were created using voice recognition technology. Because of the inherent limitations of this system, occasional same sounding word substitutions do occur and persist despite proofreading. Please read the document for context. 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 : Renal insuffiency HEENT: None Psych: Depression, Post traumatic stress disorder Musculoskeletal: Osteoarthritis Derm: None - Past Surgical History Past Surgical History: Yes Cardiovascular: Other HEENT: Tonsil/Adenoidectomy - Present Medications Home Medications: Ambulatory Orders Medication Instructions Recorded Confirmed Aspirin [Aspir-Low] 81 mg PO DAILY 11/23/15 10/27/16 Furosemide 40 mg PO DAILY 11/23/15 10/27/16 Insulin NPH Hum/Reg Insulin Hm 15 units SQ QDBREAKFAST 11/23/15 10/27/16 [Novolin 70-30 100 Unit/ml Vial] Insulin NPH Hum/Reg Insulin Hm 15 units SQ QDDINNER 11/23/15 10/27/16 [Novolin 70-30 100 Unit/ml Vial] Lisinopril 5 mg PO DAILY 11/23/15 10/27/16 Carvedilol [Coreg] 12.5 mg PO BID 09/21/16 10/27/16 Isosorbide Dinitrate 10 mg PO DAILY 10/27/16 10/27/16 - Allergies Allergies/Adverse Reactions: Allergies Allergy/AdvReac Type Severity Reaction Status Date / Time No Known Drug Allergies Allergy Verified 09/21/16 04:46 - Social History Does the pt smoke?: No Smoking Status: Never smoker Does the pt drink ETOH?: No Does the pt have substance abuse?: No - Immunizations Immunizations are current?: No Immunizations: TDAP >10years/unknown - POLST Patient has POLST: Yes POLST Status: Full Code PD ED PE NORMAL - Vitals Vital signs reviewed: Yes - General General: Alert and oriented X 3, No acute distress, Well developed/nourished - HEENT HEENT: Atraumatic, PERRL - Cardiac Cardiac: RRR - Respiratory Respiratory: Clear bilaterally - Abdomen Abdomen: Normal bowel sounds, Soft - Derm Derm: Normal color, Warm and dry - Extremities Extremities: No deformity - Neuro Neuro: Alert and oriented X 3, No motor deficit, No sensory deficit - Psych Psych: Normal mood, Normal affect Results - Vitals Vitals: Vital Signs - 24 hr 10/27/16 07:17 Temperature 36.3 C L Heart Rate 75 Respiratory 18 Rate Blood Pressure 152/78 H O2 Saturation 98 Oxygen O2 Source [Without Activity] Room air O2 Source Room air PD MEDICAL DECISION MAKING - ED course Complexity details: reviewed old records, reviewed results, re-evaluated patient , d/w patient ED course: Patient is a 76-year-old female who presents to the emergency department fairly regularly. She is here with a complaint of pain in her legs that radiates up into her buttocks bilaterally. She obtained recent ultrasound screening that demonstrated that she might have peripheral arterial disease. She does not have any claudication symptoms and on physical examination the macro circulation of her legs looks perfect. There is no discoloration of her skin or any secondary indication of limb ischemia. Color at the toes and feet are normal. There is good capillary refill, she has good pulses at dorsalis pedis posterior tibial and popliteal. Overall there is no indication of any critical limb ischemia. Her pain I suspect might be more neuropathy related. Neurologic examination lower extremities is normal. I recommended that she continue current therapy and follow-up with her primary care physician. Disposition: To home Clinical impression: 1. Bilateral leg pain, numbness, and tingling suspect neuropathy. Departure - Departure Disposition: 01 Home, Self Care Clinical Impression: Neuropathy Condition: Good Instructions: ED Neuropathy Peripheral Follow-Up: your,physician [Other]
== END 2016-10-27 07:49 | disposition home or self-care (01) ==
LOC: ED 07:12
DX: E11.42 Type 2 diabetes mellitus with diabetic polyneuropathy (principal); Z79.4 Long term (current) use of insulin; I11.0 Hypertensive heart disease with heart failure; I50.9 Heart failure, unspecified; I25.2 Old myocardial infarction; I25.10 Atherosclerotic heart disease of native coronary artery without angina pectoris; I73.9 Peripheral vascular disease, unspecified; J44.9 Chronic obstructive pulmonary disease, unspecified; F03.90 Unspecified dementia, unspecified severity, without behavioral disturbance, psychotic disturbance, mood disturbance, and anxiety; M19.90 Unspecified osteoarthritis, unspecified site; Z79.82 Long term (current) use of aspirin
CPT/HCPCS: 99282; 99283

== ENCOUNTER 2016-11-23 22:17 | Emergency (ER) | payer MEDICARE, MEDICAID ==
[2016-11-23 22:34] VITALS: BP 152/69
[2016-11-23] MEDS ORDERED: ACETAMINOPHEN 500 MG TABLET PO STA (22:53)
--- NOTE | 2016-11-23 22:54 | ED Physician Documentation ---
PD HPI LOWER EXT INJURY - Stated complaint Stated Complaint: FOOT PX - Chief complaint Chief Complaint: General - History obtained from History obtained from: Patient - History of Present Illness PD HPI LOW EXT INJURY LOCATION: Left, Foot Where injury occurred: Home Timing - onset: Chronic Timing - details: Gradual onset Improved by: Nothing Worsened by: Moving, Palpating Associated symptoms: Numbness, Tingling Similar symptoms before: Work up / diagnostics, Treatment, Follow up Recently seen: Emergency Dept - Additional information Additional information: Patient is a 76 year old female with a history of PAD, and diabetes who is presenting to the emergency department for footpain. Patient states that she didn't know if it was her peripheral neuropathy or pad. Patient stated that she did not know what medicine to take and since she lives across the street she decided to come in. patient has multiple ED visits for multiple varied complaints. Review of Systems Constitutional: denies: Fever, Chills Eyes: denies: Loss of vision, Photophobia Ears: denies: Ear pain, Drainage/discharge Nose: denies: Congestion Throat: denies: Sore throat Cardiac: denies: Chest pain / pressure, Palpitations Respiratory: denies: Cough, Wheezing GI: denies: Nausea, Vomiting Skin: denies: Rash, Lesions Musculoskeletal: reports: Extremity pain. denies: Extremity swelling Neurologic: reports: Generalized weakness, Numbness. 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 : Renal insuffiency HEENT: None Psych: Depression, Post traumatic stress disorder Musculoskeletal: Osteoarthritis Derm: None - Past Surgical History Past Surgical History: Yes Cardiovascular: Other HEENT: Tonsil/Adenoidectomy - Present Medications Home Medications: Ambulatory Orders Medication Instructions Recorded Confirmed Aspirin [Aspir-Low] 81 mg PO DAILY 11/23/15 10/27/16 Furosemide 40 mg PO DAILY 11/23/15 10/27/16 Insulin NPH Hum/Reg Insulin Hm 15 units SQ QDBREAKFAST 11/23/15 10/27/16 [Novolin 70-30 100 Unit/ml Vial] Insulin NPH Hum/Reg Insulin Hm 15 units SQ QDDINNER 11/23/15 10/27/16 [Novolin 70-30 100 Unit/ml Vial] Lisinopril 5 mg PO DAILY 11/23/15 10/27/16 Carvedilol [Coreg] 12.5 mg PO BID 09/21/16 10/27/16 Isosorbide Dinitrate 10 mg PO DAILY 10/27/16 10/27/16 - Allergies Allergies/Adverse Reactions: Allergies Allergy/AdvReac Type Severity Reaction Status Date / Time No Known Drug Allergies Allergy Verified 09/21/16 04:46 - Social History Does the pt smoke?: No Smoking Status: Never smoker Does the pt drink ETOH?: No Does the pt have substance abuse?: No - Immunizations Immunizations are current?: No Immunizations: TDAP >10years/unknown - POLST Patient has POLST: Yes POLST Status: Full Code PD ED PE NORMAL - Vitals Vital signs reviewed: Yes - General General: Alert and oriented X 3, No acute distress, Well developed/nourished - HEENT HEENT: Atraumatic, PERRL, Moist mucous membranes - Neck Neck: Supple, no meningeal sign - Cardiac Cardiac: RRR, No murmur - Respiratory Respiratory: No respiratory distress, Clear bilaterally - Abdomen Abdomen: Soft, Non tender, Non distended - Derm Derm: Normal color, Warm and dry, No rash - Extremities Extremities: No deformity - Neuro Neuro: Alert and oriented X 3, Normal speech - Psych Psych: Normal mood PD ED PE EXPANDED - Extremities Extremities: Left foot (tenderness to palpation but no deformity), Motor intact , Sensory intact, Vascular intact, Tendon intact. No: Pedal edema bilateral, Decreased/absent pulse, Cold foot, Pale foot Results - Vitals Vitals: Vital Signs - 24 hr 11/23/16 22:30 Temperature 36.1 C L Heart Rate 67 Respiratory 14 Rate Blood Pressure 152/69 H O2 Saturation 95 Oxygen O2 Source [Without Activity] Room air O2 Source Room air PD MEDICAL DECISION MAKING - ED course Complexity details: reviewed old records, re-evaluated patient, considered differential, d/w patient ED course: Patient was seen and examined at bedside. patient was well appearing and in no acute distress. Patient had no gross deformity and no emergency work up was necessary. patient required no further work up and was stable for discharge with outpatient follow up. Departure - Departure Disposition: 01 Home, Self Care Clinical Impression: Peripheral neurogenic pain Condition: Good Instructions: ED Neuropathy Peripheral Follow-Up: Mike Santos MD [Primary Care Provider] - Within 3 Days Comments: It is difficult to say if your pain is being caused by your PAD or peripheral neuropathy. You should take tylenol for pain. You should follow up with your doctor on saturday and consider gabapentin. You may return to the emergency department at any time as needed for new, worsening or uncontrollable symptoms. Discharge Date/Time: 11/23/16 23:10
[2016-11-23] MEDS ORDERED: ACETAMINOPHEN 500 MG TABLET PO ONE (23:01)
== END 2016-11-23 23:10 | disposition home or self-care (01) ==
LOC: ED 22:17
DX: M79.2 Neuralgia and neuritis, unspecified (principal); E11.51 Type 2 diabetes mellitus with diabetic peripheral angiopathy without gangrene; I10 Essential (primary) hypertension; I25.10 Atherosclerotic heart disease of native coronary artery without angina pectoris; I25.2 Old myocardial infarction; Z79.82 Long term (current) use of aspirin; Z79.4 Long term (current) use of insulin
CPT/HCPCS: 99283; A9270

== ENCOUNTER 2016-11-30 16:18 | Outpatient (CLI) | payer MEDICARE, MEDICAID ==
[2016-11-30 16:50] LABS: BASOPHILS # (AUTO) 0.1 10^3/uL (0.0-0.1); BASOPHILS % (AUTO) 0.9 %; EOSINOPHILS # (AUTO) 0.3 10^3/uL (0.0-0.7); EOSINOPHILS % (AUTO) 3.9 %; HCT - HEMATOCRIT 34.1 % (37.0-47.0); HGB - HEMOGLOBIN 11.2 g/dL (12.0-16.0); LYMPHOCYTES # (AUTO) 1.7 10^3/uL (1.5-3.5); LYMPHOCYTES % (AUTO) 23.2 %; MEAN CORPUSCULAR HEMOGLOBIN 29.4 pg (27.0-31.0); MEAN CORPUSCULAR HGB CONC 32.8 g/dL (32.0-36.0); MEAN CORPUSCULAR VOLUME 89.4 fL (81.0-99.0); MEAN PLATELET VOLUME 8.4 fL (7.9-10.8); MONOCYTES # (AUTO) 0.5 10^3/uL (0.0-1.0); MONOCYTES % (AUTO) 6.7 %; NEUTROPHILS # (AUTO) 4.9 10^3/uL (1.5-6.6); NEUTROPHILS % (AUTO) 65.3 %; RED BLOOD COUNT 3.82 10^6/uL (4.20-5.40); RED CELL DISTRIBUTION WIDTH 13.8 % (12.0-15.0); UNCORRECTED WHITE BLOOD COUNT 7.5 x10^3/uL; WHITE BLOOD COUNT 7.5 x10^3/uL (4.8-10.8)
[2016-11-30 16:56] LABS: CALCIUM 9.4 mg/dL (8.5-10.3); CREATININE 2.1 mg/dL (0.4-1.0); POTASSIUM 4.7 mmol/L (3.5-5.0)
[2016-11-30 17:05] LABS: HEMOGLOBIN A1C 0.72 g/dL
== END 2016-11-30 16:19 | disposition home or self-care (01) ==
LOC: LAB 16:18
PROVIDERS: ATTEND Internal Medicine Nephrology
DX: N05.9 Unspecified nephritic syndrome with unspecified morphologic changes (principal); E11.9 Type 2 diabetes mellitus without complications; R80.9 Proteinuria, unspecified; D70.9 Neutropenia, unspecified; D63.1 Anemia in chronic kidney disease
CPT/HCPCS: 36415; 80048; 82570; 83036; 83970; 84156; 85025

== ENCOUNTER 2016-12-31 01:13 | Outpatient (CLI) | payer MEDICARE, MEDICAID | END 2016-12-31 01:14 | disposition critical access hospital (66) | LOC: EMS 01:13 | PROVIDERS: ATTEND Surgery | DX: R39.198 Other difficulties with micturition (principal) | CPT/HCPCS: A0425; A0429 ==

== ENCOUNTER 2016-12-31 01:29 | Emergency (ER) | payer MEDICARE, MEDICAID ==
[2016-12-31 03:09] LABS: BILIRUBIN,URINE NEGATIVE (NEGATIVE); PH,URINE 5.5 PH (5.0-7.5)
[2016-12-31 03:14] LABS: UA CHARGE (STRIP ONLY) YES; UR CULTURE IF IND NOT INDICATED
--- NOTE | 2016-12-31 04:19 | ED Physician Documentation ---
PD HPI FEMALE - Stated complaint Stated Complaint: URINATING ISSUE - Chief complaint Chief Complaint: Abd Pain - History obtained from History obtained from: Patient - History of Present Illness Timing - onset: Today Timing - duration: Hours Timing - details: Gradual onset Associated symptoms: Pelvic pain (suprapubic). No: Fever, Back pain, Dysuria, Urinary frequency Similar symptoms before: Has not had sx before Recently seen: Not recently seen - Additional information Additional information: c/o unable to urinate for several hours despite urge to urinate and increasing suprapubic pressure and fullness. denies h/o similar symptoms, denies new medications including OTC Review of Systems Constitutional: denies: Fever : reports: Unable to Void. 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 : Renal insuffiency HEENT: None Psych: Depression, Post traumatic stress disorder Musculoskeletal: Osteoarthritis Derm: None - Past Surgical History Past Surgical History: Yes Cardiovascular: Other HEENT: Tonsil/Adenoidectomy - Present Medications Home Medications: Ambulatory Orders Medication Instructions Recorded Confirmed Aspirin [Aspir-Low] 81 mg PO DAILY 11/23/15 10/27/16 Furosemide 40 mg PO DAILY 11/23/15 10/27/16 Insulin NPH Hum/Reg Insulin Hm 15 units SQ QDBREAKFAST 11/23/15 10/27/16 [Novolin 70-30 100 Unit/ml Vial] Insulin NPH Hum/Reg Insulin Hm 15 units SQ QDDINNER 11/23/15 10/27/16 [Novolin 70-30 100 Unit/ml Vial] Lisinopril 5 mg PO DAILY 11/23/15 10/27/16 Carvedilol [Coreg] 12.5 mg PO BID 09/21/16 10/27/16 Isosorbide Dinitrate 10 mg PO DAILY 10/27/16 10/27/16 - Allergies Allergies/Adverse Reactions: Allergies Allergy/AdvReac Type Severity Reaction Status Date / Time No Known Drug Allergies Allergy Verified 09/21/16 04:46 - Social History Does the pt smoke?: No Smoking Status: Never smoker Does the pt drink ETOH?: No Does the pt have substance abuse?: No - Immunizations Immunizations are current?: No Immunizations: TDAP >10years/unknown - POLST Patient has POLST: Yes POLST Status: Full Code PD ED PE NORMAL - Vitals Vital signs reviewed: Yes - General General: Alert and oriented X 3, No acute distress, Well developed/nourished - Abdomen Abdomen: Soft, Non tender, Non distended - Back Back: No CVA TTP Results - Vitals Vitals: Vital Signs - 24 hr 12/31/16 04:52 Heart Rate 84 Respiratory 17 Rate Blood Pressure 126/82 H O2 Saturation 99 Oxygen O2 Source [Without Activity] Room air O2 Source Room air - Labs Labs: Laboratory Tests 12/31/16 03:00 Urine Color YELLOW Urine Clarity CLEAR Urine pH 5.5 Ur Specific [place] <=1.005 Urine Protein NEGATIVE Urine Glucose (UA) NEGATIVE Urine Ketones NEGATIVE Urine Occult Blood NEGATIVE Urine Nitrite NEGATIVE Urine Bilirubin NEGATIVE Urine Urobilinogen 0.2 (NORMAL) Ur Leukocyte Esterase NEGATIVE Ur Microscopic Review NOT INDICATED Urine Culture Comments NOT INDICATED PD MEDICAL DECISION MAKING - ED course Complexity details: reviewed results, re-evaluated patient, considered differential, d/w patient ED course: bladder scan by RN suggested no significant amount of urine in bladder, but catheter inserted due to her symptoms suggesting urinary retention. there was approximately 800 cc UO with resolution of symptoms with lind insertion. lind removed prior to discharge Departure - Departure Disposition: 01 Home, Self Care Clinical Impression: Acute urinary retention Condition: Good Instructions: ED Retention Urinary Female Follow-Up: Felecia Paz MD [Provider Admit Priv/Credential] - Discharge Date/Time: 12/31/16 05:00
[2016-12-31 04:53] VITALS: BP 126/82
== END 2016-12-31 05:00 | disposition home or self-care (01) ==
LOC: EDUNIT# → ED 01:29
DX: R33.9 Retention of urine, unspecified (principal); I11.0 Hypertensive heart disease with heart failure; I50.9 Heart failure, unspecified; I25.10 Atherosclerotic heart disease of native coronary artery without angina pectoris; E11.51 Type 2 diabetes mellitus with diabetic peripheral angiopathy without gangrene; I25.2 Old myocardial infarction; F03.90 Unspecified dementia, unspecified severity, without behavioral disturbance, psychotic disturbance, mood disturbance, and anxiety; Z79.4 Long term (current) use of insulin; Z79.82 Long term (current) use of aspirin
CPT/HCPCS: 51702; 51798; 81001; 81003; 87086; 99283; 99284

== ENCOUNTER 2017-02-11 09:43 | Outpatient (CLI) | payer MEDICARE, MEDICAID | END 2017-02-11 09:44 | disposition home or self-care (01) | LOC: NS 09:43 | PROVIDERS: ATTEND Internal Medicine | DX: Z71.3 Dietary counseling and surveillance (principal); N18.4 Chronic kidney disease, stage 4 (severe) | CPT/HCPCS: 97803 ==

== ENCOUNTER 2017-02-14 01:16 | Outpatient (CLI) | payer MEDICARE, MEDICAID | END 2017-02-14 01:17 | disposition EMS.NT | LOC: EMS 01:16 | PROVIDERS: ATTEND Surgery | DX: R06.02 Shortness of breath (principal) ==

== ENCOUNTER 2017-02-28 01:42 | Outpatient (CLI) | payer MEDICARE, MEDICAID | END 2017-02-28 01:43 | disposition critical access hospital (66) | LOC: EMS 01:42 | PROVIDERS: ATTEND Surgery | DX: R06.02 Shortness of breath (principal) ==

== ENCOUNTER 2017-02-28 01:48 | Emergency (ER) | payer MEDICARE, MEDICAID ==
--- NOTE | 2017-02-28 02:28 | XRAY Preliminary Report ---
Exam: XR CHEST 1 VIEW IMPRESSION: 1. Mild pulmonary vascular congestion or volume overload. [facility] SITE ID: [id number]
--- NOTE | 2017-02-28 02:31 | XRAY Report ---
EXAM: CHEST RADIOGRAPHY EXAM DATE: 02/28/2017 02:11 AM. CLINICAL HISTORY: Chest pain. COMPARISON: 09/21/2016. TECHNIQUE: 1 view. FINDINGS: Lungs/Pleura: Mild pulmonary vascular congestion or volume overload. No camille alveolar consolidation. No definite pleural effusion. No pneumothorax. Mediastinum: Within exam limitations, the cardiomediastinal contour is normal. Other: None. IMPRESSION: 1. Mild pulmonary vascular congestion or volume overload. [facility] Referring Provider Line: [phone] SITE ID: [id number]
[2017-02-28] MEDS ORDERED: FUROSEMIDE 40 MG/4 ML VIAL IVP STA (02:33)
[2017-02-28 02:34] LABS: BASOPHILS # (AUTO) 0.1 10^3/uL (0.0-0.1); BASOPHILS % (AUTO) 0.9 %; EOSINOPHILS # (AUTO) 0.2 10^3/uL (0.0-0.7); EOSINOPHILS % (AUTO) 1.5 %; HCT - HEMATOCRIT 31.3 % (37.0-47.0); HGB - HEMOGLOBIN 10.2 g/dL (12.0-16.0); LYMPHOCYTES # (AUTO) 1.4 10^3/uL (1.5-3.5); LYMPHOCYTES % (AUTO) 12.5 %; MEAN CORPUSCULAR HGB CONC 32.5 g/dL (32.0-36.0); MEAN CORPUSCULAR VOLUME 86.1 fL (81.0-99.0); MEAN PLATELET VOLUME 8.1 fL (7.9-10.8); MONOCYTES # (AUTO) 0.9 10^3/uL (0.0-1.0); MONOCYTES % (AUTO) 7.5 %; NEUTROPHILS # (AUTO) 8.9 10^3/uL (1.5-6.6); NEUTROPHILS % (AUTO) 77.6 %; RED BLOOD COUNT 3.64 10^6/uL (4.20-5.40); RED CELL DISTRIBUTION WIDTH 13.3 % (12.0-15.0); UNCORRECTED WHITE BLOOD COUNT 11.4 x10^3/uL; WHITE BLOOD COUNT 11.4 x10^3/uL (4.8-10.8)
[2017-02-28] MEDS ORDERED: ASPIRIN CHEW 81 MG TABLET PO STA (02:34)
[2017-02-28] MEDS ORDERED: NITROGLYCERIN SL 0.4 MG TABLET SL STA (02:35)
[2017-02-28 02:40] LABS: BILIRUBIN,TOTAL 0.5 mg/dL (0.2-1.0); CALCIUM 9.3 mg/dL (8.5-10.3); CREATININE 1.9 mg/dL (0.4-1.0); POTASSIUM 3.2 mmol/L (3.5-5.0); TOTAL PROTEIN 7.4 g/dL (6.7-8.2)
[2017-02-28] MEDS ORDERED: ASPIRIN CHEW 81 MG TABLET ONE (02:50)
[2017-02-28 03:04] LABS: INR 1.1 (0.8-1.2); PT - PROTHROMBIN TIME 12.6 secs (9.9-12.6)
[2017-02-28] MEDS ORDERED: HEPARIN 25,000 UNITS/500 ML NS 25,000 UNIT/500 ML BAG IV STA (03:22)
[2017-02-28] MEDS ORDERED: HEPARIN 5,000 UNIT/ML VIAL IVP STA (03:22)
[2017-02-28] MEDS ORDERED: ATORVASTATIN 40 MG TABLET PO STA (03:33)
[2017-02-28] MEDS ORDERED: HEPARIN 25,000 UNITS/500 ML NS 25,000 UNIT/500 ML BAG IV ONE (03:33)
[2017-02-28] MEDS ORDERED: HEPARIN 5,000 UNIT/ML VIAL ONE (03:33)
[2017-02-28] MEDS ORDERED: MORPHINE 2 MG/ML SYRINGE IVP PRN (03:34)
--- NOTE | 2017-02-28 03:51 | CONSULTATION NOTE ---
Referring Provider Name of Referring Provider:: SOB with epigastric pressure and chest tightness Consult Date: 02/28/17 (Dr Howard called for consultation ) Chief Complaint - Chief Complaint Chief Complaint: Chest pressure History of Present Illness - Admitted From Admitted From:: Consulted from ED - History Obtained From History obtained from: Patient and old medical records - History of Present Illness HPI Comment/Other: This is a pleasantly demented 76 y/o female with multiple CV comorbidities to include ACS/UT in 2015, Ischemic CM with EF 50%, CKD stage 5, Anemia of chronic disease, Hyperlipidemia, Diabetic neuropathy, PVD/PAD, TIA who is on insulin p/w sob and epigastric pressure with retrosternal chest tightness w/o classic chest pain to LACW or diaphoresis, lower extremity swelling, [place], Orthopnea or jaw claudication. Patient was found to have mild PVC on CXR and with troponin 1.6 with K 3.2, cr 1.9 (baseline 2.2), BNP >600 ( previously 132) and with ECG changes unchanged from prior ecg back on last admission in August 2016. History - Past Medical History Cardiovascular: reports: Congestive heart failure, Hypertension, High cholesterol, Coronary artery disease, Peripheral Vascular Disease, Angina, [place]. denies: Deep vein thrombosis, Pulmonary embolism, Atrial fibrillation, Murmur, Arrhythmia, Valve disorder Respiratory: reports: COPD, Shortness of breath. denies: Emphysema, Pneumonia Neuro: reports: Dementia, TIA. denies: Seizure disorder Endocrine/Autoimmune: reports: Type 2 diabetes. 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 denies: CABG, Coronary stent, Valve replacement, Pacemaker, AICD, Angioplasty HEENT: reports: Tonsil/Adenoidectomy. denies: Cataracts - Family & Social History Family History: Other family: CAD (unknown ), CVA/TIA (unknown ), Diabetes, Type 2 (unknown ) Living arrangement: At home Living Situation: Alone, With caregiver(s) Social History Notes: The patient lives in [place] just [place] [address] from the hospital in [facility]. She lives alone but does have 2 caregivers. She uses a walker at home. She is very independent. She does not have any family in the area but does have a sister in [place]. The patient is originally from the [facility]. She traveled throughout the country as her was in the [employer]. She traveled throughout the country as her was in [place] [employer]. She is . She has 3 children. 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 She states that she is never smoked, does not drink alcohol and denies any illicit drug use. - Substance History Use: Uses substance without health or social issues: NONE - POLST Patient has POLST: Yes POLST Status: Full Code Meds/Allgy - Home Medications Home Medications: Ambulatory Orders Medication Instructions Recorded Confirmed Furosemide 40 mg PO DAILY 11/23/15 02/28/17 Insulin NPH Hum/Reg Insulin Hm 15 units SQ QDBREAKFAST 11/23/15 02/28/17 [Novolin 70-30 100 Unit/ml Vial] Insulin NPH Hum/Reg Insulin Hm 15 units SQ QDDINNER 11/23/15 02/28/17 [Novolin 70-30 100 Unit/ml Vial] - Allergies Allergies/Adverse Reactions: Allergies Allergy/AdvReac Type Severity Reaction Status Date / Time No Known Drug Allergies Allergy Verified 09/21/16 04:46 Review of Systems - Constitutional Constitutional: denies: Fatigue, Fever, Chills, Weakness, Weight gain - Eyes Eyes: denies: Blurred vision - Ears, Nose & Throat Ears, Nose & Throat: denies: Tinnitus, Vertigo - Cardiovascular Cariovascular: reports: Chest pain, Edema. denies: Irregular heart rate, Palpitations, Lightheadedness, Syncope, Exertional dyspnea, Orthopnea - Respiratory Respiratory: denies: Cough, Sputum production, Wheezing, Orthopnea, Pleuritic pain - Gastrointestinal Gastrointestinal: reports: Abdominal pain. denies: Black stools, Bloody stools - Genitourinary Genitourinary: denies: Dysuria - Musculoskeletal Musculoskeletal: reports: Muscle aches, Muscle weakness - Integumentary Integumentary: denies: Rash, Pruritis - Neurological Neurological: reports: Memory problems. denies: General weakness, Seizures, Slurred speech - Psychiatric Psychiatric: denies: Depression, Anxiety, Delusions - Endocrine Endocrine: denies: Polyuria, Polydypsia, Intolerance to cold - Hematologic/Lymphatic Hematologic/Lymphatic: reports: Anemia. denies: Blood clots, Lymphadenopathy, Bleeding tendencies - All Other Systems All Other Systems: reports: Reviewed and negative Exam - Vital Signs Vital Signs: Vital Signs x48h Temp Pulse Resp BP Pulse Ox 02/28/17 03:12 96 02/28/17 03:11 76 20 159/70 H 93 02/28/17 02:10 90 L 02/28/17 01:49 36.2 C L 83 18 161/80 H 96 - Physical Exam General Appearance: positive: No acute distress, Other (obese) Eyes Bilateral: positive: Normal inspection, PERRL, EOMI Neck: positive: Nml inspection, Thyroid nml, No JVD, Trachea midline. negative : Thyromegaly, Carotid bruit Respiratory: positive: Chest non-tender, Breath sounds nml. negative: No respiratory distress, Wheezes, Rales Cardiovascular: positive: Regular rate & rhythm, No murmur, No gallop. negative : JVD present, Systolic murmur, Gallop/S4, Friction rub Peripheral Pulses: positive: 1+ (dorsalis pedis bilatrally) Abdomen: positive: Non-tender, Nml bowel sounds. negative: Hepatomegaly, Splenomegaly Skin: positive: Warm, Dry. negative: No rash, Cyanosis Extremities: positive: Non-tender, Full ROM, Nml appearance Neurologic/Psychiatric: positive: Oriented x3 Conclusion/Plan - Diagnosis Diagnosis: 1. NSTEMI. 2. Ischemic cardiomyopathy with systolic dysfunction chronic CHF with EF 50%. 3. 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 4. PVD/PAD. 5. Diabetic Neuropathy. 6. Type 2 diabetes mellitus. 7. Dementia. 8. Hypokalemia - Plan Plan: Patient is at a very high risk of recurrent ACS/UT and currently has evidence of a NSTEMI with the highest troponin of 1.6 despite her hx ckd stage 5, PVD, TIA, DM-2 with renal/neuro manifestations or complications. Patient does not present with classical angina type pain, atypical but is a diabetic and likely has true NSTEMI. Would cycle trops, start IV heparin gtt with an initial bolus per ACS protocol (60 units/kg x 1 bolus) along with a 12 units/kg/hr gtt x 48 hrs. ECHO to eval for decrease in ejection fraction. Aggressive medical management and guideline directed medical therapy for ischemic cardiomyopathy with somewhat preserved EF of 50% with a bnp>600, patient had lower bnp as well as trop back in August 2016, with a cr 2.2, which one would expect always having elevated troponin in the setting of decreased troponin clearance and CKD. However, due to multiple cardiovascular comorbidities patient would likely benefit from cardiac catherization w/ PCI/stent plcmt if coronary lesion or occlusion is seen. Would still provide antiplatelet tx with daily ASA, Atorvastatin 80 mg po qm, Nitropaste, lopressor 25 mg po bid, Losartan 50 mg po daily, Oxygen supplementation, Morphine prn, and lasix 40 mg po daily. Would defer K supplementation due to CKD stage 5. Check and correct Mag levels. Anemia of chronic disease would monitor while on heparin. PT/INR are not high. Place on home regimen of NPH insulin along with ISS coverage, HgA1c to follow. DVT ppx---already on heparin, GI ppx with famotidine. I have discussed the need for urgent cardiac catheterization in a high cardiovascular risk patient who does not present with typical anginal signs and symptoms with Dr. Trotter who has informed me that he has attempted to transfer to higher level care to other facilities but with no one accepting at the present time. I stated that it would be necessary to watch troponin trending along with obtaining another echo and aggressively medically managing for now to reduce CV complications from NSTEMI. Total Consult time: 70 min Billing: [email or web address] - Lab Results Avinash Bones: 02/28/17 02:18 02/28/17 02:18 - Diagnostic Imaging Results Diagnostic Imaging Results: positive: Final report reviewed - EKG Results EKG Interpreted Independently: Yes EKG Comparison: Unchanged from prior EKG
[2017-02-28] MEDS ORDERED: ATORVASTATIN 40 MG TABLET ONE (03:53)
[2017-02-28] MEDS ORDERED: hydrALAZINE INJ 20 MG/ML VIAL IVP PRN (04:13)
--- NOTE | 2017-02-28 04:34 | ED Physician Documentation ---
PD HPI DYSPNEA - Stated complaint Stated Complaint: SOB - Chief complaint Chief Complaint: Resp - History obtained from History obtained from: Patient, EMS - History of Present Illness Timing - onset: How many hours ago (4) Timing - onset during: Rest Timing - details: Gradual onset, Still present, Intermittant Associated symptoms: Bilateral edema. No: Fever, Cough, Wheezing Similar symptoms before: Work up / diagnostics, Treatment Recently seen: Not recently seen - Additional information Additional information: Patient is a 76 year old female with a history of CAD and chf who was brought in by ems for epigastric pain and shortness of breath. Patient states that her symptoms started about 4 hours ago, and she just felt like she couldn't catch her breath. Patient states that she took 80mg of lasix todal but it didn't help too much so she called the ambulance who brought her to the emergency department. Upon initial evaluation in the emergency department patient was in no acute distress. Review of Systems Constitutional: denies: Fever, Chills, Myalgias Eyes: reports: Reviewed and negative Ears: reports: Reviewed and negative Nose: reports: Reviewed and negative Throat: reports: Reviewed and negative Cardiac: denies: Chest pain / pressure, Palpitations, Calf pain Respiratory: reports: Dyspnea. denies: Wheezing GI: reports: Abdominal Pain. 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 : Renal insuffiency HEENT: None Psych: Depression, Post traumatic stress disorder Musculoskeletal: Osteoarthritis Derm: None - Past Surgical History Past Surgical History: Yes Cardiovascular: Cardiac catheterization, Other HEENT: Tonsil/Adenoidectomy - Present Medications Home Medications: Ambulatory Orders Medication Instructions Recorded Confirmed Furosemide 40 mg PO DAILY 11/23/15 02/28/17 Insulin NPH Hum/Reg Insulin Hm 15 units SQ QDBREAKFAST 11/23/15 02/28/17 [Novolin 70-30 100 Unit/ml Vial] Insulin NPH Hum/Reg Insulin Hm 15 units SQ QDDINNER 11/23/15 02/28/17 [Novolin 70-30 100 Unit/ml Vial] - Allergies Allergies/Adverse Reactions: Allergies Allergy/AdvReac Type Severity Reaction Status Date / Time No Known Drug Allergies Allergy Verified 09/21/16 04:46 - Social History Does the pt smoke?: No Smoking Status: Never smoker Does the pt drink ETOH?: No Does the pt have substance abuse?: No - Immunizations Immunizations are current?: No Immunizations: TDAP >10years/unknown - POLST Patient has POLST: Yes POLST Status: Full Code PD ED PE NORMAL - Vitals Vital signs reviewed: Yes - General General: Alert and oriented X 3, No acute distress - HEENT HEENT: Atraumatic, PERRL, Pharynx benign - Neck Neck: Supple, no meningeal sign, No JVD - Cardiac Cardiac: RRR, No murmur - Respiratory Respiratory: No respiratory distress - Abdomen Abdomen: Soft, Non tender, Non distended - Derm Derm: Normal color, Warm and dry, No rash - Extremities Extremities: No deformity - Neuro Neuro: Alert and oriented X 3, No motor deficit, No sensory deficit Eye Opening: Spontaneous Motor: Obeys Commands Verbal: Oriented GCS Score: 15 - Psych Psych: Normal mood PD ED PE EXPANDED - Respiratory Respiratory: Decreased breath sounds, Right lower lobe, Left lower lobe Results - Vitals Vitals: Vital Signs - 24 hr 02/28/17 02/28/17 02/28/17 01:49 02:10 03:11 Temperature 36.2 C L Heart Rate 83 76 Respiratory 18 20 Rate Blood Pressure 161/80 H 159/70 H O2 Saturation 96 90 L 93 02/28/17 02/28/17 02/28/17 03:12 03:48 05:25 Temperature 36.6 C Heart Rate 77 76 Respiratory 18 17 Rate Blood Pressure 166/71 H 156/70 H O2 Saturation 96 99 96 Oxygen O2 Source [Without Activity] Room air O2 Source Nasal cannula Oxygen Flow Rate 2 - EKG (time done) 0157 Rate: Rate (enter#) (83) Rhythm: NSR Intervals: LBBB QRS: Normal Ischemia: Normal ST segments Compare to prior EKG: Unchanged from prior EKG - Labs Labs: Laboratory Tests 02/28/17 02/28/17 02/28/17 02:18 02:18 02:18 WBC 11.4 H RBC 3.64 L Hgb 10.2 L Hct 31.3 L MCV 86.1 MCH 28.0 MCHC 32.5 RDW 13.3 Plt Count 378 MPV 8.1 Neut # 8.9 H Lymph # 1.4 L [place] # 0.9 Eos # 0.2 Baso # 0.1 Absolute Nucleated RBC 0.00 Nucleated RBC % 0.0 PT INR APTT Sodium 138 Potassium 3.2 L Chloride 95 L Carbon Dioxide 27 Anion Gap 16.0 H BUN 53 H Creatinine 1.9 H Estimated GFR (MDRD) 26 L Glucose 94 Calcium 9.3 Total Bilirubin 0.5 AST 18 ALT 12 Alkaline Phosphatase 75 Troponin I 1.61 H* B-Natriuretic Peptide Total Protein 7.4 Albumin 3.7 Globulin 3.7 Albumin/Globulin Ratio 1.0 Lipase 42 02/28/17 02/28/17 02/28/17 02:18 02:18 03:57 WBC RBC Hgb Hct MCV MCH MCHC RDW Plt Count MPV Neut # Lymph # [place] # Eos # Baso # Absolute Nucleated RBC Nucleated RBC % PT 12.6 INR 1.1 APTT 33.0 Sodium Potassium Chloride Carbon Dioxide Anion Gap BUN Creatinine Estimated GFR (MDRD) Glucose Calcium Total Bilirubin AST ALT Alkaline Phosphatase Troponin I 1.53 H* B-Natriuretic Peptide 691 H Total Protein Albumin Globulin Albumin/Globulin Ratio Lipase - Rads (name of study) chest x-ray Radiology: Final report received (pulmonary edema) PD MEDICAL DECISION MAKING - ED course Complexity details: reviewed old records, reviewed results, re-evaluated patient , considered differential, d/w patient, d/w oracle hyperion consultant ED course: Patient was seen and examined at bedside. ekg was performed and was unchanged from patient's previous ekg. IV access was gained and labs were drawn. chest x -ray was ordered and patient was found to have pulmonary edema. Patient was treated with aspirin, but had just taken lasix. Nitro was ordered. When patient's labs came back, patient was found to have and elevated troponin. Heparin drip was started. There was a lack of beds in surrounding hospitals so case was discussed with hospitalist, but further hospitals were called to try to find a bed. [facility] in [place] responded and case was discussed with Dr. Jonas who accepted the patient. Arrangements were made and patient was transfered in stable condition. Departure - Departure Disposition: 02 Transfer Acute Care Hosp Clinical Impression: NSTEMI (non-ST elevated myocardial infarction) Condition: Stable Discharge Date/Time: 02/28/17 05:59
[2017-02-28] MEDS ORDERED: METOPROLOL TARTRATE 50 MG TABLET PO STA (04:58)
[2017-02-28 05:26] VITALS: BP 156/70
[2017-02-28] MEDS ORDERED: METOPROLOL TARTRATE 50 MG TABLET ONE (05:30)
[2017-02-28] MEDS ORDERED: INSULIN 70/30 HUMAN 100 UNIT/1 ML 10 ML MDV SUBQ SCH ×2 (08:00→17:00)
[2017-02-28] MEDS ORDERED: INSULIN ASPART 300 UNIT/3 ML PEN SUBQ SCH (08:00)
[2017-02-28] MEDS ORDERED: FAMOTIDINE 20 MG TABLET PO SCH (09:00)
[2017-02-28] MEDS ORDERED: ASPIRIN EC 81 MG TABLET PO SCH (09:00)
[2017-02-28] MEDS ORDERED: METOPROLOL TARTRATE 25 MG TABLET PO SCH (09:00)
[2017-02-28] MEDS ORDERED: FUROSEMIDE 40 MG TABLET PO SCH (09:00)
[2017-02-28] MEDS ORDERED: LOSARTAN 50 MG TABLET PO SCH (09:00)
[2017-02-28] MEDS ORDERED: ATORVASTATIN 40 MG TABLET PO SCH (21:00)
== END 2017-02-28 05:59 | disposition short-term general hospital (02) ==
LOC: EDUNIT# → ED 01:48
DX: I21.4 Non-ST elevation (NSTEMI) myocardial infarction (principal); I25.2 Old myocardial infarction; I25.119 Atherosclerotic heart disease of native coronary artery with unspecified angina pectoris; I11.0 Hypertensive heart disease with heart failure; I50.9 Heart failure, unspecified; E11.9 Type 2 diabetes mellitus without complications; Z79.4 Long term (current) use of insulin; N28.9 Disorder of kidney and ureter, unspecified; M19.90 Unspecified osteoarthritis, unspecified site; F03.90 Unspecified dementia, unspecified severity, without behavioral disturbance, psychotic disturbance, mood disturbance, and anxiety; Z86.73 Personal history of transient ischemic attack (TIA), and cerebral infarction without residual deficits
CPT/HCPCS: 36415; 71010; 80053; 83690; 83880; 84484; 85025; 85610; 85730; 93005; 96374; 99285; A9270; 80048; 80061; 83036; 83735

== ENCOUNTER 2017-02-28 05:40 | Outpatient (CLI) | payer MEDICARE, MEDICAID | END 2017-02-28 05:41 | disposition short-term general hospital (02) | LOC: EMS 05:40 | PROVIDERS: ATTEND Surgery | DX: I21.4 Non-ST elevation (NSTEMI) myocardial infarction (principal); R06.02 Shortness of breath | CPT/HCPCS: A0170; A0425; A0426; A0429 ==

== ENCOUNTER 2017-03-15 12:45 | Outpatient (CLI) | payer MEDICARE, MEDICAID | END 2017-03-15 12:46 | disposition home or self-care (01) | LOC: NS 12:45 | PROVIDERS: ATTEND Internal Medicine | DX: Z71.3 Dietary counseling and surveillance (principal); N18.4 Chronic kidney disease, stage 4 (severe); Z68.29 Body mass index [BMI] 29.0-29.9, adult | CPT/HCPCS: 97803 ==

== ENCOUNTER 2017-03-30 14:08 | Outpatient (CLI) | payer MEDICARE, MEDICAID ==
--- NOTE | 2017-03-30 18:17 | Ultrasound Report ---
EXAM: BILATERAL LOWER EXTREMITY ARTERIAL DOPPLER ULTRASOUND EXAM DATE: 03/30/2017 04:16 PM. CLINICAL HISTORY: Peripheral arterial disease. Bilateral claudication. COMPARISON: 12/06/2016. TECHNIQUE: Real-time sonographic vascular imaging was performed by the credit portfolio advisor, utilizing color-f low, Doppler flow, and spectral analysis. Multiple telephone service representative static images were saved for review . FINDINGS: RIGHT LOWER EXTREMITY: INTERNATIONAL SALES MANAGER: PSV 106 cm/sec, biphasic waveform. PSFA: PSV 72 cm/sec, biphasic waveform. MSFA: PSV 79 cm/sec, monophasic waveform. DSFA: PSV 401 cm/sec, monophasic waveform. PFA: PSV 78 cm/sec, biphasic waveform. POP: PSV 72 cm/sec, monophasic waveform. VANESA: PSV 51 cm/sec, monophasic waveform. J2EE ANDROID DEVELOPER: PSV 32 cm/sec, monophasic waveform. PER: PSV 96cm/sec, monophasic waveform. DPA: PSV 39 cm/sec, monophasic waveform. LEFT LOWER EXTREMITY: INTERNATIONAL SALES MANAGER: PSV 79 cm/sec, biphasic waveform. PSFA: PSV 62 cm/sec, monophasic waveform. MSFA: PSV 89 cm/sec, monophasic waveform. M/DSFA: PSV 358 cm/sec, monophasic waveform. DSFA: PSV 62 cm/sec, monophasic waveform. PFA: PSV 138 cm/sec, biphasic waveform. POP: PSV 174 cm/sec, monophasic waveform. VANESA: PSV 33 cm/sec, monophasic waveform. J2EE ANDROID DEVELOPER: PSV 62 cm/sec, monophasic waveform. PER: PSV 31 cm/sec, monophasic waveform. DPA: PSV 9 cm/sec, monophasic waveform. IMPRESSION: 1. Relatively low velocities and biphasic/monophasic waveforms throughout the lower extremities, sugg esting proximal stenosis. 2. Focal elevated velocities in the distal right SFA and mid/distal left SFA indicating 50-99% stenos is. 3. Three-vessel flow to the ankles bilaterally. [facility] Referring Provider Line: [phone] SITE ID: [id number]
== END 2017-03-30 14:09 | disposition home or self-care (01) ==
LOC: DI 14:08
PROVIDERS: ATTEND Internal Medicine
DX: I70.201 Unspecified atherosclerosis of native arteries of extremities, right leg (principal)
CPT/HCPCS: 93925

== ENCOUNTER 2017-04-01 13:41 | Outpatient (CLI) | payer MEDICARE, MEDICAID ==
[2017-04-01 14:12] LABS: HGB - HEMOGLOBIN 10.5 g/dL (12.0-16.0); MEAN CORPUSCULAR HEMOGLOBIN 28.2 pg (27.0-31.0); MEAN CORPUSCULAR HGB CONC 32.7 g/dL (32.0-36.0); MEAN CORPUSCULAR VOLUME 86.4 fL (81.0-99.0); RED BLOOD COUNT 3.72 10^6/uL (4.20-5.40); RED CELL DISTRIBUTION WIDTH 14.3 % (12.0-15.0); WHITE BLOOD COUNT 7.3 x10^3/uL (4.8-10.8)
[2017-04-01 14:29] LABS: CALCIUM 9.5 mg/dL (8.5-10.3); PHOSPHORUS 4.4 mg/dL (2.5-4.6)
[2017-04-01 14:44] LABS: CREATININE,URINE 87.6 mg/dL; PROTEIN/CREATININE RATIO,URINE 0.1 (<=0.2)
== END 2017-04-01 13:42 | disposition home or self-care (01) ==
LOC: LAB 13:41
PROVIDERS: ATTEND Internal Medicine Nephrology
DX: N05.9 Unspecified nephritic syndrome with unspecified morphologic changes (principal); D70.9 Neutropenia, unspecified; R80.9 Proteinuria, unspecified; E83.30 Disorder of phosphorus metabolism, unspecified; N25.81 Secondary hyperparathyroidism of renal origin
CPT/HCPCS: 36415; 80048; 82570; 83970; 84100; 84156

== ENCOUNTER 2017-04-11 12:53 | Outpatient (CLI) | payer MEDICARE, MEDICAID ==
--- NOTE | 2017-04-12 09:26 | DEXA Report ---
DEXA: 04/11/2017 CLINICAL INDICATION: Postmenopausal. TECHNIQUE: Dual energy x-ray absorptiometry (DXA) was performed on a [employer] system. Regions measured are the AP spine, femoral neck, and, if needed, forearm. COMPARISON: None. In accordance with the International Society for Clinical Densitometry (ISCD) guidelines, data from previous exams may be reanalyzed using current recommendations and techniques. This is done to allow a more accurate basis for comparison with the current study. FINDINGS The data for the lumbar spine is as follows: REGION BMD (g/cm/cm) T-SCORE Z-SCORE L1 1.092 -0.3 1.0 L2 1.331 1.1 2.4 L3 1.604 3.4 4.6 L4 1.508 2.6 3.8 TOTAL L1-L4 1.388 1.7 3.0 NOTE: All evaluable vertebrae are used for classification. The data for the hip is as follows: REGION BMD (g/cm/cm) T-SCORE Z-SCORE Neck 0.700 -2.4 -0.8 TOTAL 0.793 -1.7 -0.3 NOTE: The femoral neck or total proximal femur, whichever is lowest, is used for classification. IMPRESSION THE WHO CLASSIFICATION BASED ON THE INTERNATIONAL REFERENCE STANDARD IS OSTEOPENIA. THE FRACTURE RISK IS INCREASED. RECOMMENDATION: Patients with diagnosis of osteoporosis or osteopenia should have regular bone mineral density assessment. For those eligible for Medicare, routine testing is allowed once every 2 years. Testing frequency can be increased for patients who have rapidly progressing disease or for those who are receiving medical therapy to restore bone mass. COMMENT: World Health Organization (WHO) definitions for osteoporosis and osteopenia: NORMAL BMD: T-score at 1.0 or higher, fracture risk is low. OSTEOPENIA BMD: T-score between 1.0 and -2.5, fracture risk is increased. OSTEOPOROSIS BMD: T-score at 2.5 or lower, fracture risk high. National Osteoporosis Foundation recommends: 1. Obtain adequate dietary calcium (at least 1200 mg per day) and vitamin D (400 -800 international units per day). 2. Participate, as appropriate, in regular weightbearing and muscle- strengthening exercise. 3. Avoid tobacco use and reduce alcohol and caffeine intake. 4. For more detailed information see the website at www.NOF.org. TD: 04/11/2017 18:52 MTDD
== END 2017-04-11 12:54 | disposition home or self-care (01) ==
LOC: DI 12:53
PROVIDERS: ATTEND Internal Medicine
DX: M85.88 Other specified disorders of bone density and structure, other site (principal)
CPT/HCPCS: 77080

== ENCOUNTER 2017-04-12 08:09 | Outpatient (CLI) | payer MEDICARE, MEDICAID ==
[2017-04-12 10:46] LABS: HB2 TOTAL 11.8 g/dL; HEMOGLOBIN A1C 0.65 g/dL; HEMOGLOBIN A1C % 7.2 % (4.6-6.2)
[2017-04-12 10:58] LABS: ALBUMIN 4.2 g/dL (3.2-5.5); ALBUMIN/GLOBULIN RATIO 1.4 (1.0-2.2); BILIRUBIN,TOTAL 0.5 mg/dL (0.2-1.0); CALCIUM 9.6 mg/dL (8.5-10.3); CREATININE 1.9 mg/dL (0.4-1.0); TOTAL PROTEIN 7.3 g/dL (6.7-8.2)
[2017-04-12 11:42] LABS: THYROID STIMULATING HORMONE 2.5 uIU/mL (0.34-5.60)
[2017-04-12 11:44] LABS: FREE T4 (FREE THYROXINE) 1.02 ng/dL (0.58-1.64)
== END 2017-04-12 08:10 | disposition home or self-care (01) ==
LOC: LAB 08:09
PROVIDERS: ATTEND Internal Medicine
DX: R68.89 Other general symptoms and signs (principal); K59.00 Constipation, unspecified; E11.9 Type 2 diabetes mellitus without complications; I77.9 Disorder of arteries and arterioles, unspecified; N18.9 Chronic kidney disease, unspecified; Z79.899 Other long term (current) drug therapy
CPT/HCPCS: 80053; 83036; 84439; 84443

== ENCOUNTER 2017-06-06 02:12 | Outpatient (CLI) | payer MEDICARE, MEDICAID | END 2017-06-06 02:13 | disposition critical access hospital (66) | LOC: EMS 02:12 | PROVIDERS: ATTEND Surgery | DX: R06.02 Shortness of breath (principal) | CPT/HCPCS: A0425; A0429 ==

== ENCOUNTER 2017-06-06 02:18 | Emergency (ER) | payer MEDICARE, MEDICAID ==
[2017-06-06] MEDS ORDERED: FUROSEMIDE 40 MG/4 ML VIAL IVP STA (02:44)
--- NOTE | 2017-06-06 02:45 | ED Physician Documentation ---
PD HPI DYSPNEA - Stated complaint Stated Complaint: SOA - Chief complaint Chief Complaint: Resp - History obtained from History obtained from: Patient, EMS - History of Present Illness Timing - onset: Today Timing - onset during: Rest Timing - details: Abrupt onset (she has had some increased dyspnea the past few days and awoke with marked dyspnea. Called EMS and is improved some enroute.), Now resolved Worsened by: Exertion, Laying flat Associated symptoms: Cough, Bilateral edema, Anxiety. No: Fever, Wheezing, Chest pain / discomfort Similar symptoms before: Diagnosis (CHF) Recently seen: Not recently seen Review of Systems Constitutional: denies: Fever, Chills Nose: denies: Rhinorrhea / runny nose, Congestion Throat: reports: Dental pain / toothache. 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 : Renal insuffiency HEENT: None Psych: Depression, Post traumatic stress disorder Musculoskeletal: Osteoarthritis Derm: None - Past Surgical History Past Surgical History: Yes Cardiovascular: Cardiac catheterization, Other HEENT: Tonsil/Adenoidectomy - Present Medications Home Medications: Ambulatory Orders Medication Instructions Recorded Confirmed Furosemide 40 mg PO DAILY 11/23/15 02/28/17 Insulin NPH Hum/Reg Insulin Hm 15 units SQ QDBREAKFAST 11/23/15 02/28/17 [Novolin 70-30 100 Unit/ml Vial] Insulin NPH Hum/Reg Insulin Hm 15 units SQ QDDINNER 11/23/15 02/28/17 [Novolin 70-30 100 Unit/ml Vial] - Allergies Allergies/Adverse Reactions: Allergies Allergy/AdvReac Type Severity Reaction Status Date / Time No Known Drug Allergies Allergy Verified 06/06/17 03:27 - Social History Does the pt smoke?: No Smoking Status: Never smoker Does the pt drink ETOH?: No Does the pt have substance abuse?: No - Family History Family history: reports: Non contributory - Immunizations Immunizations are current?: No Immunizations: TDAP >10years/unknown - POLST Patient has POLST: Yes POLST Status: Full Code PD ED PE NORMAL - Vitals Vital signs reviewed: Yes (good sats, BP high) - General General: Alert and oriented X 3, No acute distress, Well developed/nourished - HEENT HEENT: Pharynx benign - Neck Neck: Supple, no meningeal sign, No adenopathy - Cardiac Cardiac: RRR, No murmur - Respiratory Respiratory: Clear bilaterally - Abdomen Abdomen: Soft, Non tender - Back Back: No CVA TTP - Derm Derm: Normal color, Warm and dry - Extremities Extremities: No tenderness to palpate, Normal ROM s pain, No calf tenderness / cord, Other (1+ edema in legs) - Neuro Neuro: Alert and oriented X 3, No motor deficit, Normal speech Results - Vitals Vitals: Vital Signs - 24 hr 06/06/17 06/06/17 02:15 03:26 Temperature 36.3 C L Heart Rate 85 79 Respiratory 20 16 Rate Blood Pressure 186/89 H 182/81 H O2 Saturation 97 96 Oxygen O2 Source [Without Activity] Room air O2 Source Room air - EKG (time done) 02:33 Rate: Rate (enter#) (78) Rhythm: NSR [place]: Normal Intervals: Wide QRS Ischemia: Normal ST segments. No: ST elevation c/w ischemia, ST depression Compare to prior EKG: Unchanged from prior EKG - Labs Labs: Laboratory Tests 06/06/17 06/06/17 06/06/17 02:53 02:53 02:53 WBC 6.4 RBC 3.96 L Hgb 10.7 L Hct 33.4 L MCV 84.2 MCH 27.0 MCHC 32.1 RDW 15.2 H Plt Count 283 MPV 7.7 L Neut # 4.0 Lymph # 1.5 [place] # 0.5 Eos # 0.3 Baso # 0.1 Absolute Nucleated RBC 0.00 Nucleated RBC % 0.1 Sodium 137 Potassium 3.9 Chloride 105 Carbon Dioxide 24 Anion Gap 8.0 BUN 41 H Creatinine 1.6 H Estimated GFR (MDRD) 31 L Glucose 201 H Calcium 9.2 Magnesium 2.0 Total Bilirubin 0.5 AST 19 ALT 12 Alkaline Phosphatase 76 B-Natriuretic Peptide 671 H Total Protein 6.7 Albumin 3.8 Globulin 2.9 Albumin/Globulin Ratio 1.3 Lipase 37 - Rads (name of study) chest Radiology: Prelim report reviewed, EMP read contemporaneously PD MEDICAL DECISION MAKING - ED course Complexity details: considered differential (likely some CHF but does not appear significant. She is feeling better with some diuresis in ED. She would like to go home. Has appt for denture fitting this morning. ), d/w patient Departure - Departure Disposition: 01 Home, Self Care Clinical Impression: Dyspnea Qualifiers: Dyspnea type: shortness of breath Qualified Code(s): R06.02 - Shortness of breath CHF (congestive heart failure) Qualifiers: Congestive heart failure type: unspecified Congestive heart failure chronicity : acute on chronic Qualified Code(s): I50.9 - Heart failure, unspecified Condition: Stable Record reviewed to determine appropriate education?: Yes Instructions: ED CHF General, ED Dyspnea Shortness of Breath Comments: Increase your Furosemide for 5 days from single dose in morning to the dose in morning followed by a dose at noon. Other meds the same. Follow up with PMD in about 2-3 days, call for appt. Return if worsening. Discharge Date/Time: 06/06/17 04:42
[2017-06-06 02:59] LABS: BASOPHILS # (AUTO) 0.1 10^3/uL (0.0-0.1); BASOPHILS % (AUTO) 1.1 %; EOSINOPHILS # (AUTO) 0.3 10^3/uL (0.0-0.7); EOSINOPHILS % (AUTO) 5.3 %; HGB - HEMOGLOBIN 10.7 g/dL (12.0-16.0); LYMPHOCYTES # (AUTO) 1.5 10^3/uL (1.5-3.5); LYMPHOCYTES % (AUTO) 23.3 %; MEAN CORPUSCULAR HGB CONC 32.1 g/dL (32.0-36.0); MEAN CORPUSCULAR VOLUME 84.2 fL (81.0-99.0); MEAN PLATELET VOLUME 7.7 fL (7.9-10.8); MONOCYTES # (AUTO) 0.5 10^3/uL (0.0-1.0); MONOCYTES % (AUTO) 8.4 %; NEUTROPHILS % (AUTO) 61.9 %; PLT - PLATELET COUNT 283 10^3/uL (130-450); RED BLOOD COUNT 3.96 10^6/uL (4.20-5.40); RED CELL DISTRIBUTION WIDTH 15.2 % (12.0-15.0); WHITE BLOOD COUNT 6.4 x10^3/uL (4.8-10.8)
[2017-06-06 03:13] LABS: ALBUMIN 3.8 g/dL (3.2-5.5); ALBUMIN/GLOBULIN RATIO 1.3 (1.0-2.2); BILIRUBIN,TOTAL 0.5 mg/dL (0.2-1.0); CALCIUM 9.2 mg/dL (8.5-10.3); CREATININE 1.6 mg/dL (0.4-1.0); TOTAL PROTEIN 6.7 g/dL (6.7-8.2)
--- NOTE | 2017-06-06 03:23 | XRAY Preliminary Report ---
Exam: XR CHEST 2 VIEW X-RAY IMPRESSION: Stable appearance of the chest without acute cardiopulmonary abnormality. [facility] SITE ID: [id number]
--- NOTE | 2017-06-06 03:23 | XRAY Report ---
EXAM: CHEST RADIOGRAPHY EXAM DATE: 06/06/2017 03:10 AM. CLINICAL HISTORY: Dyspnea COMPARISON: 02/28/2017, 05/11/2016 TECHNIQUE: 2 views. FINDINGS: Lungs/Pleura: No focal opacities evident. No pleural effusion. No pneumothorax. Normal volumes. Mediastinum: Heart and mediastinal contours are unremarkable. Other: Moderate degenerative change of the shoulder bilaterally. IMPRESSION: Stable appearance of the chest without acute cardiopulmonary abnormality. [facility] Referring Provider Line: [phone] SITE ID: [id number]
[2017-06-06 03:27] VITALS: BP 182/81
== END 2017-06-06 04:42 | disposition home or self-care (01) ==
LOC: EDUNIT# → ED 02:18
DX: I11.0 Hypertensive heart disease with heart failure (principal); I50.9 Heart failure, unspecified; R06.02 Shortness of breath; E78.00 Pure hypercholesterolemia, unspecified; I25.119 Atherosclerotic heart disease of native coronary artery with unspecified angina pectoris; E11.51 Type 2 diabetes mellitus with diabetic peripheral angiopathy without gangrene; Z79.4 Long term (current) use of insulin; J44.9 Chronic obstructive pulmonary disease, unspecified; M19.90 Unspecified osteoarthritis, unspecified site; Z86.73 Personal history of transient ischemic attack (TIA), and cerebral infarction without residual deficits
CPT/HCPCS: 36415; 71046; 80053; 83690; 83735; 83880; 85025; 93005; 96374; 99284

== ENCOUNTER 2017-06-19 10:48 | Outpatient (CLI) | payer MEDICARE, MEDICAID | END 2017-06-19 10:49 | disposition critical access hospital (66) | LOC: EMS 10:48 | PROVIDERS: ATTEND Surgery | DX: R07.9 Chest pain, unspecified (principal) | CPT/HCPCS: A0425; A0429 ==

== ENCOUNTER 2017-06-19 10:57 | Inpatient (IN) | payer MEDICARE, MEDICAID ==
[2017-06-19 11:34] LABS: BASOPHILS % (AUTO) 0.6 %; EOSINOPHILS # (AUTO) 0.3 10^3/uL (0.0-0.7); EOSINOPHILS % (AUTO) 3.8 %; HGB - HEMOGLOBIN 11.9 g/dL (12.0-16.0); LYMPHOCYTES # (AUTO) 1.3 10^3/uL (1.5-3.5); LYMPHOCYTES % (AUTO) 15.6 %; MEAN CORPUSCULAR HEMOGLOBIN 27.5 pg (27.0-31.0); MEAN CORPUSCULAR VOLUME 83.5 fL (81.0-99.0); MEAN PLATELET VOLUME 8.2 fL (7.9-10.8); MONOCYTES # (AUTO) 0.6 10^3/uL (0.0-1.0); MONOCYTES % (AUTO) 7.1 %; NEUTROPHILS # (AUTO) 5.9 10^3/uL (1.5-6.6); NEUTROPHILS % (AUTO) 72.9 %; PLT - PLATELET COUNT 291 10^3/uL (130-450); RED BLOOD COUNT 4.32 10^6/uL (4.20-5.40); RED CELL DISTRIBUTION WIDTH 15.9 % (12.0-15.0); WHITE BLOOD COUNT 8.1 x10^3/uL (4.8-10.8)
--- NOTE | 2017-06-19 11:44 | XRAY Report ---
EXAM: CHEST RADIOGRAPHY EXAM DATE: 06/19/2017 11:32 AM. CLINICAL HISTORY: Chest pain. Pressure between shoulder blades. COMPARISON: 06/06/2017. 02/28/2017. TECHNIQUE: 2 views. FINDINGS: Lungs/Pleura: No focal opacities evident. No pleural effusion. No pneumothorax. Normal volumes. Mediastinum: Heart size is normal. Aorta is mildly tortuous. Other: Degenerative changes of the thoracic spine. IMPRESSION: 1. No acute disease in the chest. [facility] Referring Provider Line: [phone] SITE ID: [id number]
[2017-06-19 11:46] LABS: ALBUMIN 4.3 g/dL (3.2-5.5); ALBUMIN/GLOBULIN RATIO 1.4 (1.0-2.2); BILIRUBIN,TOTAL 0.8 mg/dL (0.2-1.0); CALCIUM 9.7 mg/dL (8.5-10.3); CREATININE 1.6 mg/dL (0.4-1.0); TOTAL PROTEIN 7.4 g/dL (6.7-8.2)
[2017-06-19] MEDS ORDERED: MIDAZOLAM 2 MG/2 ML VIAL IVP STA (11:49)
[2017-06-19] MEDS ORDERED: PROPOFOL 200 MG/20 ML VIAL IVP STA (11:49)
[2017-06-19] MEDS ORDERED: ASPIRIN CHEW 81 MG TABLET PO STA (12:03)
[2017-06-19] MEDS ORDERED: HEPARIN 5,000 UNIT/ML VIAL IVP ONE (13:20)
[2017-06-19] MEDS ORDERED: HEPARIN 25000UNITS/500ML (D5W) 25,000 UNIT/500 ML BAG IV STA (14:33)
--- NOTE | 2017-06-19 18:12 | ED Physician Documentation ---
PD HPI CHEST PAIN - Stated complaint Stated Complaint: CP - Chief complaint Chief Complaint: Cardiac - History obtained from History obtained from: Patient - History of Present Illness Timing - onset: How many hours ago (1) Timing - onset during: Rest Timing - duration: Hours (1) Timing - details: Still present Quality: Pressure Location: Substernal Associated symptoms: Feeling faint / dizzy, General Weakness, Palpitations Similar symptoms before: Has not had sx before - Additional information Additional information: The patient is a 77-year-old female with history of coronary artery disease, status post ND 3 months ago, who presents with chest pressure that started while eating breakfast at a local restaurant this morning. She tried walking around but the symptoms continued, with associated slight dizziness and feeling of exhaustion. She also feels slight shortness of breath and reports palpitations. She denies nausea or vomiting. She reports history of similar symptoms intermittently in the past, but has never been diagnosed with atrial fibrillation or other cardiac dysrhythmia. She has history of multivessel coronary artery disease diagnosed at [facility] in 2016. She was felt at that time to not be a candidate for coronary artery bypass. She had myocardial infarction 3 months ago, at which time she was hospitalized at [facility]. Further past medical history is significant for insulin-dependent diabetes and dementia. She lives alone, and reports confusion with regard to her medications. Review of Systems Constitutional: reports: Fatigue. denies: Fever Ears: denies: Tinnitus/ringing Nose: denies: Congestion Throat: denies: Sore throat Cardiac: reports: Chest pain / pressure, Palpitations Respiratory: reports: Dyspnea. denies: Cough GI: denies: Abdominal Pain, Nausea, Vomiting : denies: Dysuria Skin: denies: Rash Musculoskeletal: denies: Back pain, Extremity swelling Neurologic: reports: Generalized weakness. 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 : Renal insuffiency HEENT: None Psych: Depression, Post traumatic stress disorder Musculoskeletal: Osteoarthritis Derm: None - Past Surgical History Past Surgical History: Yes Cardiovascular: Cardiac catheterization, Other HEENT: Tonsil/Adenoidectomy - Present Medications Home Medications: Ambulatory Orders Medication Instructions Recorded Confirmed Furosemide 40 mg PO DAILY 11/23/15 06/19/17 Carvedilol [Carvedilol] 6.25 mg PO BID 06/19/17 06/19/17 Clopidogrel Bisulfate [Clopidogrel] 75 mg PO DAILY 06/19/17 06/19/17 Donepezil [Aricept] 5 mg PO DAILY 06/19/17 06/19/17 Insulin 70/30 Human [NovoLIN] 10 units SUBQ 1630 06/19/17 06/19/17 Insulin 70/30 Human [NovoLIN] 20 units SUBQ 0730 06/19/17 06/19/17 Lisinopril [Lisinopril] 2.5 mg PO BID 06/19/17 06/19/17 - Allergies Allergies/Adverse Reactions: Allergies Allergy/AdvReac Type Severity Reaction Status Date / Time No Known Drug Allergies Allergy Verified 06/06/17 03:27 - Living Situation Living Situation: reports: Alone - Social History Does the pt smoke?: No Smoking Status: Never smoker Does the pt drink ETOH?: No Does the pt have substance abuse?: No - Immunizations Immunizations are current?: No Immunizations: TDAP >10years/unknown - POLST Patient has POLST: Yes POLST Status: Full Code PD ED PE NORMAL - Vitals Vital signs reviewed: Yes (Tachycardic with a rate in the high 130s.) - General General: Alert and oriented X 3, Well developed/nourished - HEENT HEENT: Atraumatic, Moist mucous membranes - Neck Neck: No adenopathy, No JVD - Cardiac Cardiac: No murmur, Other (Rapid rate, irregularly irregular rhythm.) - Respiratory Respiratory: No respiratory distress, Clear bilaterally - Abdomen Abdomen: Soft, Non tender - Back Back: No CVA TTP - Derm Derm: No rash - Extremities Extremities: No edema, No calf tenderness / cord - Neuro Neuro: Alert and oriented X 3, No motor deficit, No sensory deficit, Normal speech, Other (Alert and generally oriented, but the confusion regarding specific details of her illness) Results - Vitals Vitals: Vital Signs - 24 hr 06/19/17 06/19/17 06/19/17 10:55 12:20 14:22 Temperature 36.5 C Heart Rate 123 H 84 78 Respiratory 17 27 H 10 L Rate Blood Pressure 114/70 152/77 H 178/83 H O2 Saturation 98 98 98 06/19/17 17:35 Temperature Heart Rate 78 Respiratory 16 Rate Blood Pressure 168/82 H O2 Saturation 96 Oxygen O2 Source [Without Activity] Room air O2 Source Room air - EKG (time done) 11:00 Rate: Rate (enter#) (136) Rhythm: Atrial fibrillation Ischemia: Q waves (in precordial leads V1-V3.) Compare to prior EKG: Changed from prior EKG (A-fib is new since prior EKG of .) Computer interpretation: Agree with computer 11:58 Rate: Rate (enter#) (84) Rhythm: NSR [place]: Normal Intervals: Normal ME Ischemia: Q waves (in precordial leads V1-V3.), T wave inversion (in I, II, aVF , and V4-V6.) Compare to prior EKG: Changed from prior EKG (A-fib has spontaneously converted. ) Computer interpretation: Agree with computer - Labs Labs: Laboratory Tests 06/19/17 06/19/17 06/19/17 11:15 11:15 11:15 WBC 8.1 RBC 4.32 Hgb 11.9 L Hct 36.1 L MCV 83.5 MCH 27.5 MCHC 33.0 RDW 15.9 H Plt Count 291 MPV 8.2 Neut # 5.9 Lymph # 1.3 L [place] # 0.6 Eos # 0.3 Baso # 0.0 Absolute Nucleated RBC 0.01 Nucleated RBC % 0.1 PT INR Sodium 136 Potassium 4.1 Chloride 101 Carbon Dioxide 24 Anion Gap 11.0 BUN 41 H Creatinine 1.6 H Estimated GFR (MDRD) 31 L Glucose 262 H Calcium 9.7 Magnesium Total Bilirubin 0.8 AST 26 ALT 21 Alkaline Phosphatase 85 Troponin I 0.54 H* B-Natriuretic Peptide Total Protein 7.4 Albumin 4.3 Globulin 3.1 Albumin/Globulin Ratio 1.4 Lipase 34 06/19/17 06/19/17 06/19/17 11:15 11:15 16:04 WBC RBC Hgb Hct MCV MCH MCHC RDW Plt Count MPV Neut # Lymph # [place] # Eos # Baso # Absolute Nucleated RBC Nucleated RBC % PT 10.8 INR 1.0 Sodium Potassium Chloride Carbon Dioxide Anion Gap BUN Creatinine Estimated GFR (MDRD) Glucose Calcium Magnesium 2.3 Total Bilirubin AST ALT Alkaline Phosphatase Troponin I B-Natriuretic Peptide 768 H Total Protein Albumin Globulin Albumin/Globulin Ratio Lipase 06/19/17 16:05 WBC RBC Hgb Hct MCV MCH MCHC RDW Plt Count MPV Neut # Lymph # [place] # Eos # Baso # Absolute Nucleated RBC Nucleated RBC % PT INR Sodium Potassium Chloride Carbon Dioxide Anion Gap BUN Creatinine Estimated GFR (MDRD) Glucose Calcium Magnesium Total Bilirubin AST ALT Alkaline Phosphatase Troponin I 0.54 H* B-Natriuretic Peptide Total Protein Albumin Globulin Albumin/Globulin Ratio Lipase - Rads (name of study) CXR Radiology: Prelim report reviewed, EMP read contemporaneously, See rad report ( No acute radiographic abnormalities.) PD MEDICAL DECISION MAKING - ED course Complexity details: reviewed old records, reviewed results, re-evaluated patient , considered differential, d/w patient, d/w virtualization consultant ED course: The patient's presentation is significant for new onset atrial fibrillation with rapid ventricular response. She presented with associated chest pain and dizziness and exhaustion. As we were preparing to cardiovert her, she converted spontaneously to normal sinus rhythm with a rate in the mid 80s. Repeat electrocardiogram revealed T-wave inversions in multiple leads, including I, II, and V1 through V3. When compared to prior EKGs these have been seen previously, although were not present on her most recent EKG of 2017. Her chest pain completely resolved with her conversion to normal sinus rhythm. However her initial troponin came back mildly elevated at 0.54. Her BNP is also elevated at 768. Chest x-ray does not reveal pulmonary vascular congestion , and her physical exam does not suggest congestive heart failure. Treatment in the emergency department included administration of 4 baby aspirin orally, metoprolol 50 mg orally, heparin bolus and infusion as per cardiac protocol. She remained pain-free, with stable vital signs throughout her remainder of stay in the emergency department. A 4 hour troponin level was obtained, and it is exactly the same as the first, at 0.54. Multiple attempts were made to contact her adult daycare coordinator in [place], and subsequently we were informed that there are no beds available at [facility]. The malthouse laborer at [facility] in [place] was contacted, and no beds are available there. Subsequently I discussed her condition with the hospitalist and the adult daycare coordinator at [facility]. The adult daycare coordinator advises that transferring her to an acute care facility is unlikely to be of clinical benefit since the patient is not a likely candidate for cardiac intervention. I discussed her condition with Dr. Guadalupe, who accepts her for hospitalization locally. Departure - Departure Disposition: 66 [facility] DC/Xfer Clinical Impression: Elevated troponin Atrial fibrillation Qualifiers: Atrial fibrillation type: paroxysmal Qualified Code(s): I48.0 - Paroxysmal atrial fibrillation Chronic renal insufficiency Qualifiers: Chronic kidney disease stage: unspecified stage Qualified Code(s): N18.9 - Chronic kidney disease, unspecified Dementia Qualifiers: Dementia type: unspecified type Dementia behavioral disturbance: without behavioral disturbance Qualified Code(s): F03.90 - Unspecified dementia without behavioral disturbance Condition: Stable Discharge Date/Time: 06/19/17 19:34
[2017-06-19] MEDS ORDERED: TEMAZEPAM 15 MG CAPSULE PO PRN (18:25)
[2017-06-19] MEDS ORDERED: ACETAMINOPHEN 325 MG TABLET PO PRN (18:25)
[2017-06-19] MEDS ORDERED: SODIUM CHLORIDE FLUSH 0.9% 10 ML SYRINGE IVP PRN (18:25)
[2017-06-19] MEDS ORDERED: ONDANSETRON 4 MG/2 ML VIAL IVP PRN (18:25)
[2017-06-19] MEDS ORDERED: MORPHINE 2 MG/ML SYRINGE IVP PRN (18:25)
[2017-06-19] MEDS ORDERED: HEPARIN 25000UNITS/500ML (D5W) 25,000 UNIT/500 ML BAG IV SCH (19:00)
[2017-06-19] MEDS ORDERED: METOPROLOL SUCCINATE 50 MG TABLET PO SCH (19:00)
[2017-06-19 19:07] LABS: PT - PROTHROMBIN TIME 10.8 secs (9.9-12.6)
[2017-06-19] MEDS ORDERED: HYDROmorphone 1 MG/ML CARPUJECT IVP PRN (20:47)
[2017-06-19] MEDS: ATORVASTATIN 40 MG TABLET PO SCH ×2 (20:53→21:00)
[2017-06-19] MEDS: CARVEDILOL 12.5 MG TABLET PO SCH ×2 (20:54→21:00)
[2017-06-19] MEDS: ISOSORBIDE MONONITRATE ER 30 MG TABLET PO SCH (20:54)
[2017-06-19] MEDS ORDERED: METOPROLOL TARTRATE 50 MG TABLET PO SCH (21:00)
--- NOTE | 2017-06-19 21:52 | HISTORY & PHYSICAL EXAMINATION ---
DATE OF SERVICE: 06/19/2017 Physician: Susana Akers MD HISTORY OF PRESENT ILLNESS: This is a 77-year-old white female with history of diabetes on insulin, history of peripheral vascular disease, coronary disease, hypertension , depression, possibly mild dementia. The patient was admitted here 2 years ago and ruled in for an VA and required an angiogram, which apparently showed multivessel disease. Her LVEF on the last echo was 45% with mild global hypokinesis. The patient only takes Lasix and her insulin daily; it is unclear if she had other medications for vascular disease such as lipids, beta blockers or aspirin in the past. The patient awoke with new onset of chest pain and presented to the emergency room with this complaint and was found to be in rapid atrial fibrillation. She converted spontaneously to sinus rhythm. Her chest pain is now resolved. She has not had accelerating angina before today. In the emergency room, the ED doctor reached out to Cardiology for transfer for an angiogram. The water service supervisor at [facility] reviewed the 2016 coronary angiogram results, which showed multivessel disease and stated that she was not revascularizable and not a candidate for repeat angiography, and that medical management is advised. The patient is admitted for adjustment of medications for her new atrial fibrillation and acute non-ST elevation myocardial infarction. PAST MEDICAL HISTORY 1. Insulin-dependent diabetes. 2. CAD. 3. PVD. 4. Depression. 5. Hypertension. 6. CKD. 7. Possibly mild dementia. ALLERGIES: NO KNOWN ALLERGIES. MEDICATIONS AT HOME 1. NPH insulin only. 2. Lasix 40 mg p.o. daily. SOCIAL HISTORY: The patient is a nonsmoker, who never smoked, uses no alcohol or illicit drugs. She lives with a friend. FAMILY HISTORY: No inherited diseases. REVIEW OF SYSTEMS: A comprehensive review of systems was performed and the pertinent positives are in the HPI. PHYSICAL EXAMINATION GENERAL: Elderly white female. She is currently in no distress. VITAL SIGNS: Blood pressure on presentation was 114/70 when she was in a-fib, but a heart rate of 123. Her blood pressure now is 178/83 with sinus rhythm at 78, afebrile, room air saturation 98%. HEENT: Unremarkable. NECK: Shows no JVD, no carotid bruits. CHEST: Clear. HEART: Heart sounds normal. No audible murmur. No gallop. ABDOMEN: Soft. EXTREMITIES: No clubbing, cyanosis or edema. NEUROLOGIC: Intact. LABORATORY DATA: Normal electrolytes. BUN is 41, creatinine 1.6, glucose 262, magnesium 2.3. Troponin 0.54 and a repeat troponin 6 hours later is also 0.54. BNP 768. White blood count 8.1, hemoglobin 11.9, platelet count normal at 291. No INR was done. No urinalysis was done. EKG: Atrial fibrillation with rapid rate and LVH with strain. EKG number 2: Normal sinus rhythm, LVH with strain. CHEST X-RAY: No acute pulmonary disease. IMPRESSION 1. Acute non-ST elevation myocardial infarction. 2. New-onset atrial fibrillation, paroxysmal, she has converted to sinus rhythm spontaneously. 3. Insulin-dependent diabetes. 4. Chronic kidney disease. 5. Hypertension. 6. Probable dementia. PLAN: Since the patient will not have an angiogram because she has no vessels that can be revascularized, medical management is planned. She will be admitted to telemetry. Check serial troponins to see the peak value. Start the patient on beta blockers, nitrates, aspirin, and heparin. Begin a long-acting anticoagulant tomorrow, Eliquis, is preferred for ease of use in a patient who might have mild dementia. This will depend on her co-pay and will be arranged tomorrow. If the garcia is excessive then Coumadin will be started. Obtain an Echo to recheck left ventricular ejection fraction. Check lipids to treat per guidelines. CODE STATUS: DO NOT RESUSCITATE (DNR). Deep venous thrombosis prophylaxis: Pharmacotherapy with therapeutic Heparin then Eliquis.. ATTESTATION: The patient is expected to be discharged or transferred to another facility within 96 hours: Yes. TD: 06/19/2017 21:50 CARMEN
[2017-06-19] MEDS ORDERED: HALOPERIDOL 5 MG/ML VIAL IVP PRN (23:06)
[2017-06-20] MEDS: QUEtiapine 25 MG TABLET PO SCH ×2 (00:23→20:46)
[2017-06-20] MEDS: SODIUM CHLORIDE FLUSH 0.9% 10 ML SYRINGE IVP SCH ×4 (00:26→23:30)
[2017-06-20 01:33] LABS: BILIRUBIN,URINE NEGATIVE (NEGATIVE); GLUCOSE, URINE (UA) NEGATIVE (NEGATIVE); KETONES,URINE (UA) NEGATIVE (NEGATIVE); LEUKOCYTE ESTERASE, URINE NEGATIVE (NEGATIVE); NITRITE,URINE NEGATIVE (NEGATIVE); OCCULT BLOOD,URINE SMALL (NEGATIVE); PH,URINE 5.5 PH (5.0-7.5); PROTEIN,URINE 100 mg/dL (NEGATIVE); UROBILINOGEN,URINE 0.2 (NORMAL) E.U./dL (NORMAL)
[2017-06-20 01:37] LABS: CLARITY,URINE CLEAR (CLEAR)
[2017-06-20 01:39] LABS: BACTERIA,URINE Rare /HPF (None Seen); SQUAMOUS EPITHELIAL CELL,UR RARE Squamous (<= Few)
[2017-06-20 04:58] LABS: CHOL/HDL RATIO 4.2 (<4.4); CHOLESTEROL 312 mg/dL; HDL CHOLESTEROL 75 mg/dL; LDL CHOLESTEROL,CALCULATED 198 mg/dL; LDL/HDL RATIO 2.6 (<4.4); VLDL CHOLESTEROL 39 mg/dL
[2017-06-20] MEDS ORDERED: ASPIRIN CHEW 81 MG TABLET PO SCH (09:00)
[2017-06-20] MEDS ORDERED: FUROSEMIDE 40 MG TABLET PO SCH (09:00)
[2017-06-20] MEDS: APIXABAN 2.5 MG TABLET PO SCH ×2 (10:15→20:46)
[2017-06-20] MEDS: FAMOTIDINE 20 MG TABLET PO SCH (10:15)
[2017-06-20] MEDS: ISOSORBIDE MONONITRATE ER 30 MG TABLET PO SCH (10:15)
[2017-06-20] MEDS: CARVEDILOL 12.5 MG TABLET PO SCH ×2 (10:15→20:46)
[2017-06-20] MEDS: POLYETHYLENE GLYCOL 3350 17 GM PACKET PO SCH (10:16)
[2017-06-20 11:33] LABS: CALCIUM 8.9 mg/dL (8.5-10.3); CREATININE 1.5 mg/dL (0.4-1.0)
[2017-06-20 11:39] LABS: HB2 TOTAL 10.8 g/dL; HEMOGLOBIN A1C 0.66 g/dL; HEMOGLOBIN A1C % 7.7 % (4.6-6.2)
[2017-06-20] MEDS: hydrALAZINE 10 MG TABLET PO SCH ×2 (11:40→20:46)
[2017-06-20] MEDS: DONEPEZIL 5 MG TABLET PO SCH (11:40)
[2017-06-20] MEDS: CLOPIDOGREL 75 MG TABLET PO SCH (11:40)
[2017-06-20] MEDS: INSULIN ASPART 300 UNIT/3 ML PEN SUBQ SCH ×3 (11:59→20:52)
--- NOTE | 2017-06-20 14:31 | PROVIDER PROGRESS NOTE ---
Assessment/Plan - Problem List (1) NSTEMI (non-ST elevated myocardial infarction) Assessment/Plan: Today her reconciled home med list was completed. She was already on Coreg and Lisinopril and Plavix, no ASA. Continue B-lashell and Plavix. She is now on Nitrates. Heparin for first 24 hours. Troponins keep climbing. Will track until see peak troponin, to estimate size of [place]. Only medical management planned, she was turned down for another cor. angio by Prov. [employer] Property Management Intern yeterday. Will start PT when troponins are no longer climbing. Continue Lipitor for high LDL. (2) Ischemic cardiomyopathy Assessment/Plan: Echo done today shows LVEF 20-25%. There are no signs of heart failure clinically. Will add Hydralazine to Nitrate treatment (due to CKD), therfore Lisinopril can be stopped. Continue daily po Lasix and will add Spironolactone. Continue Coreg. (3) New onset a-fib Assessment/Plan: Pt converted to NSR spontaneously. Will start Eliquis for CVA prophylaxis since her CHADS score is 4 (CHF, HTN, age >75, Diabetes). (4) Diabetes mellitus Assessment/Plan: Pt had low A1c suggesting good glu control. Sliding scale coverage and fingersticks while here, ikn addition to DM diet and NPH Insulin. (5) Chronic renal insufficiency Qualifiers: Chronic kidney disease stage: unspecified stage Qualified Code(s): N18.9 - Chronic kidney disease, unspecified Assessment/Plan: This appears to be her basleine. Will use Hydralazine + Nitrates and not MILKA for the cardiomyopathy + CKD presence, since she needs the Nitrates for angina control. (6) Dementia Qualifiers: Dementia type: unspecified type Dementia behavioral disturbance: without behavioral disturbance Qualified Code(s): F03.90 - Unspecified dementia without behavioral disturbance Assessment/Plan: The patient has stopped meds on her own, per the [facility]. She has seen a Psychiatrist but is not on anti-psych meds or dementia meds. I will assess her with a Mini-Mental exam. This will help determine where she will be safe to discharge to. (7) HTN (hypertension) Assessment/Plan: Fairly good control on present meds. Continue to monitor. - Current Meds Current Meds: Current Medications Generic Name Dose Route Start Last Admin Trade Name Freq PRN Reason Stop Dose Admin Apixaban 2.5 mg 06/20/17 09:00 06/20/17 10:15 Eliquis PO 2.5 mg BID MARNI Administration Atorvastatin Calcium 80 mg 06/19/17 20:00 06/19/17 21:00 Lipitor PO Not Given QPM MARNI Carvedilol 12.5 mg 06/19/17 20:00 06/20/17 10:15 Coreg PO 12.5 mg BID MARNI Administration Clopidogrel Bisulfate 75 mg 06/20/17 11:00 06/20/17 11:40 Plavix PO 75 mg DAILY MARNI Administration Donepezil HCl 5 mg 06/20/17 11:00 06/20/17 11:40 Aricept PO 5 mg DAILY MARNI Administration Famotidine 20 mg 06/20/17 09:00 06/20/17 10:15 Pepcid PO 20 mg DAILY MARNI Administration Furosemide 40 mg 06/20/17 09:00 06/20/17 10:15 Lasix PO 40 mg DAILY MARNI Administration Hydralazine HCl 10 mg 06/20/17 12:00 06/20/17 11:40 Apresoline PO 10 mg BID MARNI Administration Hydromorphone HCl 1 mg 06/19/17 20:47 06/19/17 21:00 Dilaudid Inj Carp IVP 1 mg Q2HR PRN Administration PAIN Insulin Aspart 1 - 5 unit 06/20/17 12:00 06/20/17 11:59 Novolog SUBQ 1 unit 0800,1200,1700,2100 MARNI Administration Protocol Isosorbide Mononitrate 30 mg 06/19/17 20:00 06/20/17 10:15 Imdur PO 30 mg DAILY MARNI Administration Polyethylene Glycol 17 gm 06/20/17 09:00 06/20/17 10:16 Miralax PO Not Given DAILY MARNI Quetiapine Fumarate 25 mg 06/19/17 23:45 06/20/17 00:23 Seroquel PO 25 mg QPM MARNI Administration Sodium Chloride 10 ml 06/20/17 01:00 06/20/17 10:16 Normal Saline Flush 0.9% IVP 10 ml 0100,0900,1700 MARNI Administration - Lab Result Fish Bone Diagrams: 06/19/17 11:15 06/20/17 11:14 - Additional Planning My Orders: My Active Orders 06/19/17 18:33 Initiate Cardiac Heparin Prot [RC] .protocol Notify Provider - Specific Ins [RC] PRN 06/19/17 20:00 Atorvastatin [Lipitor] 80 mg PO QPM Carvedilol [Coreg] 12.5 mg PO BID Isosorbide Mononitrate ER [Imdur] 30 mg PO DAILY 06/20/17 Evaluate and Treat OT [OT] Routine Evaluate and Treat PT [PT] Routine 06/20/17 07:00 Echo Transthoracic Complete [ECHO] Routine 06/20/17 09:00 Apixaban [Eliquis] 2.5 mg PO BID Furosemide [Lasix] 40 mg PO DAILY 06/20/17 09:26 Blood Glucose Checks - Eating [RC] 0800,1200,1700,2100 Initiate Hypoglycemia Protocol [RC] .protocol 06/20/17 11:00 Clopidogrel [Plavix] 75 mg PO DAILY Donepezil [Aricept] 5 mg PO DAILY 06/20/17 11:50 OCCULT BLOOD IN PAT. SINGLE [RAPID] Routine 06/20/17 12:00 Insulin Aspart [NovoLOG] 1 - 5 unit SUBQ 0800,1200,1700,2100 hydrALAZINE [Apresoline] 10 mg PO BID 06/20/17 17:00 TROPONIN I [IAI] Timed 06/21/17 05:00 BMP - BASIC METABOLIC PANEL [CHEM] DAILYLAB 06/21/17 12:00 Spironolactone [Aldactone] 12.5 mg PO 1200 Subjective - Subjective Patient Reports: No Complaints Nursing Reports: No Complaints, Other (Overnight she was more confused and the Manager Motor started Seroquel at hs plus Haldol prn agitation.) Objective Vital Signs: Vital Signs - 24 hr 06/19/17 06/20/17 06/20/17 21:02 00:00 04:48 Temperature 36.5 C 36.6 C 36.2 C L Heart Rate [ 68 82 70 Monitoring electrodes] Respiratory 19 18 18 Rate Blood Pressure 175/55 H 151/68 H 140/55 H [Left Brachial artery] O2 Saturation 95 93 95 06/20/17 06/20/17 09:07 11:39 Temperature 36.7 C 36.3 C L Heart Rate [ 68 68 Monitoring electrodes] Respiratory 19 16 Rate Blood Pressure 122/47 L 153/58 H [Left Brachial artery] O2 Saturation 95 96 Oxygen O2 Source Room air I&O (Last 24 Hrs): Intake and Output Totals x24h 06/18/17 06/19/17 06/20/17 23:59 23:59 23:59 Intake Total 100 1230.772 Output Total 200 Balance 100 1030.772 General: Alert HEENT: Mucous membr. moist/pink Neck: Supple, No JVD Cardiovascular: Regular rate, No murmurs Respiratory: Breath sounds nml Abdomen: Soft Extremities: No edema - Results Results: Laboratory Results WBC 8.1 x10^3/uL (4.8-10.8) 06/19/17 11:15 RBC 4.32 10^6/uL (4.20-5.40) 06/19/17 11:15 Hgb 11.9 g/dL (12.0-16.0) L 06/19/17 11:15 Hct 36.1 % (37.0-47.0) L 06/19/17 11:15 MCV 83.5 fL (81.0-99.0) 06/19/17 11:15 MCH 27.5 pg (27.0-31.0) 06/19/17 11:15 MCHC 33.0 g/dL (32.0-36.0) 06/19/17 11:15 RDW 15.9 % (12.0-15.0) H 06/19/17 11:15 Plt Count 291 10^3/uL (130-450) 06/19/17 11:15 MPV 8.2 fL (7.9-10.8) 06/19/17 11:15 Neut # 5.9 10^3/uL (1.5-6.6) 06/19/17 11:15 Lymph # 1.3 10^3/uL (1.5-3.5) L 06/19/17 11:15 [place] # 0.6 10^3/uL (0.0-1.0) 06/19/17 11:15 Eos # 0.3 10^3/uL (0.0-0.7) 06/19/17 11:15 Baso # 0.0 10^3/uL (0.0-0.1) 06/19/17 11:15 Absolute Nucleated RBC 0.01 x10^3/uL 06/19/17 11:15 Nucleated RBC % 0.1 /100WBC 06/19/17 11:15 PT 10.8 secs (9.9-12.6) 06/19/17 11:15 INR 1.0 (0.8-1.2) 06/19/17 11:15 Anti-Xa Level 0.4 U/mL (-0.7) 06/20/17 01:10 Sodium 136 mmol/L (135-145) 06/20/17 11:14 Potassium 4.2 mmol/L (3.5-5.0) 06/20/17 11:14 Chloride 104 mmol/L (101-111) 06/20/17 11:14 Carbon Dioxide 25 mmol/L (21-32) 06/20/17 11:14 Anion Gap 7.0 (6-13) 06/20/17 11:14 BUN 42 mg/dL (6-20) H 06/20/17 11:14 Creatinine 1.5 mg/dL (0.4-1.0) H 06/20/17 11:14 Estimated GFR (MDRD) 34 (>89) L 06/20/17 11:14 Glucose 191 mg/dL (70-100) H 06/20/17 11:14 Glycated Hemoglobin 7.7 % (4.6-6.2) H 06/20/17 11:14 Estim Average Glucose 174 (70-100) H 06/20/17 11:14 Calcium 8.9 mg/dL (8.5-10.3) 06/20/17 11:14 Magnesium 2.3 mg/dL (1.7-2.8) 06/19/17 16:04 Total Bilirubin 0.8 mg/dL (0.2-1.0) 06/19/17 11:15 AST 26 IU/L (10-42) 06/19/17 11:15 ALT 21 IU/L (10-60) 06/19/17 11:15 Alkaline Phosphatase 85 IU/L (42-121) 06/19/17 11:15 Troponin I 0.74 ng/mL (<0.49) H* 06/20/17 11:14 B-Natriuretic Peptide 652 pg/mL (5-100) H 06/20/17 04:18 Total Protein 7.4 g/dL (6.7-8.2) 06/19/17 11:15 Albumin 4.3 g/dL (3.2-5.5) 06/19/17 11:15 Globulin 3.1 g/dL (2.1-4.2) 06/19/17 11:15 Albumin/Globulin Ratio 1.4 (1.0-2.2) 06/19/17 11:15 Triglycerides 196 mg/dL (-149) H 06/20/17 04:18 Cholesterol 312 mg/dL (-199) H 06/20/17 04:18 LDL Cholesterol, Calc 198 mg/dL (-129) H 06/20/17 04:18 VLDL Cholesterol 39 mg/dL 06/20/17 04:18 HDL Cholesterol 75 mg/dL (60-) 06/20/17 04:18 LDL/HDL Ratio 2.6 (<4.4) 06/20/17 04:18 Cholesterol/HDL Ratio 4.2 (<4.4) 06/20/17 04:18 Lipase 34 U/L (22-51) 06/19/17 11:15 Urine Color YELLOW 06/20/17 00:20 Urine Clarity CLEAR (CLEAR) 06/20/17 00:20 Urine pH 5.5 PH (5.0-7.5) 06/20/17 00:20 Ur Specific [place] >=1.030 (1.002-1.030) H 06/20/17 00:20 Urine Protein 100 mg/dL (NEGATIVE) H 06/20/17 00:20 Urine Glucose (UA) NEGATIVE mg/dL (NEGATIVE) 06/20/17 00:20 Urine Ketones NEGATIVE mg/dL (NEGATIVE) 06/20/17 00:20 Urine Occult Blood SMALL (NEGATIVE) H 06/20/17 00:20 Urine Nitrite NEGATIVE (NEGATIVE) 06/20/17 00:20 Urine Bilirubin NEGATIVE (NEGATIVE) 06/20/17 00:20 Urine Urobilinogen 0.2 (NORMAL) E.U./dL (NORMAL) 06/20/17 00:20 Ur Leukocyte Esterase NEGATIVE (NEGATIVE) 06/20/17 00:20 Urine RBC 11-25 /HPF (0-5) H 06/20/17 00:20 Urine WBC 0-3 /HPF (0-5) 06/20/17 00:20 Ur Squamous Epith Cells RARE Squamous (<= Few) 06/20/17 00:20 Urine Bacteria Rare /HPF (None Seen) 06/20/17 00:20 Urine Culture Comments NOT INDICATED 06/20/17 00:20
[2017-06-20] MEDS: ATORVASTATIN 40 MG TABLET PO SCH (20:46)
[2017-06-20] MEDS ORDERED: METOPROLOL TARTRATE 25 MG TABLET PO SCH (21:00)
[2017-06-21 05:28] LABS: CREATININE 1.9 mg/dL (0.4-1.0)
[2017-06-21] MEDS: ISOSORBIDE MONONITRATE ER 30 MG TABLET PO SCH (09:02)
[2017-06-21] MEDS: CARVEDILOL 12.5 MG TABLET PO SCH ×2 (09:02→21:06)
[2017-06-21] MEDS: hydrALAZINE 10 MG TABLET PO SCH ×2 (09:02→21:07)
[2017-06-21] MEDS: APIXABAN 2.5 MG TABLET PO SCH ×2 (09:03→21:07)
[2017-06-21] MEDS: INSULIN ASPART 300 UNIT/3 ML PEN SUBQ SCH ×4 (09:03→21:08)
[2017-06-21] MEDS: CLOPIDOGREL 75 MG TABLET PO SCH (09:03)
[2017-06-21] MEDS: FAMOTIDINE 20 MG TABLET PO SCH (09:03)
[2017-06-21] MEDS: DONEPEZIL 5 MG TABLET PO SCH (09:03)
[2017-06-21] MEDS: POLYETHYLENE GLYCOL 3350 17 GM PACKET PO SCH (09:04)
[2017-06-21] MEDS: SODIUM CHLORIDE FLUSH 0.9% 10 ML SYRINGE IVP SCH ×2 (09:04→17:09)
[2017-06-21] MEDS ORDERED: SPIRONOLACTONE 25 MG TABLET PO SCH (12:00)
[2017-06-21] MEDS: SERTRALINE 50 MG TABLET PO SCH (12:12)
--- NOTE | 2017-06-21 12:42 | PROVIDER PROGRESS NOTE ---
Assessment/Plan - Problem List (1) NSTEMI (non-ST elevated myocardial infarction) Assessment/Plan: Troponin continues to climb. This could be due to rising creat. As she has no further angina, will recheck trop in 12 hours and stop diuretic to help creat improve. Pt does not need PT as she was fully ambulatory and active (while she was nearly absconding). PT and OT cancelled. (2) Ischemic cardiomyopathy Assessment/Plan: No angina and no signs of CHF. Pt has NHYA Class I systolic heart failure, or ACC/AHA grade A. Probable DCh tomorrow. (3) New onset a-fib Assessment/Plan: No recurrence of afib. Continue Eliquis and current B-lashell for rate control. (4) Diabetes mellitus Assessment/Plan: Continue current management. (5) Dementia Qualifiers: Dementia type: unspecified type Dementia behavioral disturbance: without behavioral disturbance Qualified Code(s): F03.90 - Unspecified dementia without behavioral disturbance Assessment/Plan: I performed an abbreviated mini-mental exam at bedside, after she was given Haldol to decrease her agitation and combativeness, and she has adequate memory and decision making capacity. Continue Donepezil. (6) Acute kidney injury superimposed on CKD Assessment/Plan: Rising creat daily. Will stop Lasix and Spironolactone today. - Current Meds Current Meds: Current Medications Generic Name Dose Route Start Last Admin Trade Name Freq PRN Reason Stop Dose Admin Acetaminophen 650 mg 06/19/17 18:25 06/20/17 22:00 Tylenol PO 650 mg Q4HR PRN Administration Pain 1 to 4 Apixaban 2.5 mg 06/20/17 09:00 06/21/17 09:03 Eliquis PO 2.5 mg BID MARNI Administration Atorvastatin Calcium 80 mg 06/19/17 20:00 06/20/17 20:46 Lipitor PO 80 mg QPM MARNI Administration Carvedilol 12.5 mg 06/19/17 20:00 06/21/17 09:02 Coreg PO 12.5 mg BID MARNI Administration Clopidogrel Bisulfate 75 mg 06/20/17 11:00 06/21/17 09:03 Plavix PO 75 mg DAILY MARNI Administration Donepezil HCl 5 mg 06/20/17 11:00 06/21/17 09:03 Aricept PO 5 mg DAILY MARNI Administration Famotidine 20 mg 06/20/17 09:00 06/21/17 09:03 Pepcid PO 20 mg DAILY MARNI Administration Haloperidol 2 mg 06/19/17 23:06 06/21/17 08:55 Haldol Inj IVP 2 mg Q2H PRN Administration Anxiety Hydralazine HCl 10 mg 06/20/17 12:00 06/21/17 09:02 Apresoline PO 10 mg BID MARNI Administration Hydromorphone HCl 1 mg 06/19/17 20:47 06/19/17 21:00 Dilaudid Inj Carp IVP 1 mg Q2HR PRN Administration PAIN Insulin Aspart 1 - 9 unit 06/21/17 08:00 06/21/17 12:13 Novolog SUBQ 3 unit 0800,1200,1700,2100 MARNI Administration Protocol Isosorbide Mononitrate 30 mg 06/19/17 20:00 06/21/17 09:02 Imdur PO 30 mg DAILY MARNI Administration Polyethylene Glycol 17 gm 06/20/17 09:00 06/21/17 09:04 Miralax PO Not Given DAILY MARNI Quetiapine Fumarate 25 mg 06/19/17 23:45 06/20/17 20:46 Seroquel PO 25 mg QPM MARNI Administration Sertraline HCl 50 mg 06/21/17 11:00 06/21/17 12:12 Zoloft PO Not Given DAILY MARNI Sodium Chloride 10 ml 06/19/17 18:25 06/20/17 23:30 Normal Saline Flush 0.9% IVP 10 ml PRN PRN Administration NEEDED PER PROVIDER ORDERS Sodium Chloride 10 ml 06/20/17 01:00 06/21/17 09:04 Normal Saline Flush 0.9% IVP Not Given 0100,0900,1700 MARNI - Lab Result Fish Bone Diagrams: 06/19/17 11:15 06/21/17 04:34 - Additional Planning My Orders: My Active Orders 06/20/17 12:00 hydrALAZINE [Apresoline] 10 mg PO BID 06/21/17 08:00 EKG - Electrocardiogram [RC] .ONCE Insulin Aspart [NovoLOG] 1 - 9 unit SUBQ 0800,1200,1700,2100 06/21/17 10:34 1:1 Observation [RC] once 06/21/17 11:00 Sertraline [Zoloft] 50 mg PO DAILY 06/21/17 17:00 TROPONIN I [IAI] Timed 06/22/17 05:00 BMP - BASIC METABOLIC PANEL [CHEM] DAILYLAB Subjective - Subjective Patient Reports: Feeling Better, Other (Pt dressedherself to walk out to attend psych appointment at [facility] this am.) Nursing Reports: Other (Refused Zoloft. Pt wan sebastian someone to accompany her across the street to her psych appointment, was agitated, kicked the INSEAMER Trey, pushed me away. Needed im Haldol and 1:1 watch ordered for elopement risk.) Objective Vital Signs: Vital Signs - 24 hr 06/20/17 06/20/17 06/21/17 15:49 20:36 03:50 Temperature 36.4 C L 36.8 C 36.8 C Heart Rate [ 61 71 67 Monitoring electrodes] Respiratory 16 18 18 Rate Blood Pressure 153/56 H [Left Brachial artery] Blood Pressure 144/56 H 141/53 H [Right Brachial artery] O2 Saturation 95 98 96 06/21/17 11:31 Temperature 36.9 C Heart Rate [ 66 Monitoring electrodes] Respiratory 18 Rate Blood Pressure [Left Brachial artery] Blood Pressure 148/61 H [Right Brachial artery] O2 Saturation 95 Oxygen O2 Source Room air I&O (Last 24 Hrs): Intake and Output Totals x24h 06/19/17 06/20/17 06/21/17 23:59 23:59 23:59 Intake Total 100 6685.412 6182 Output Total 900 1200 Balance 100 1020.772 -100 General: Alert, Oriented x3, Other (Not cooperative until recieve im Haldol then described her actions as "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 was 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, 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") - Results Results: Laboratory Results WBC 8.1 x10^3/uL (4.8-10.8) 06/19/17 11:15 RBC 4.32 10^6/uL (4.20-5.40) 06/19/17 11:15 Hgb 11.9 g/dL (12.0-16.0) L 06/19/17 11:15 Hct 36.1 % (37.0-47.0) L 06/19/17 11:15 MCV 83.5 fL (81.0-99.0) 06/19/17 11:15 MCH 27.5 pg (27.0-31.0) 06/19/17 11:15 MCHC 33.0 g/dL (32.0-36.0) 06/19/17 11:15 RDW 15.9 % (12.0-15.0) H 06/19/17 11:15 Plt Count 291 10^3/uL (130-450) 06/19/17 11:15 MPV 8.2 fL (7.9-10.8) 06/19/17 11:15 Neut # 5.9 10^3/uL (1.5-6.6) 06/19/17 11:15 Lymph # 1.3 10^3/uL (1.5-3.5) L 06/19/17 11:15 [place] # 0.6 10^3/uL (0.0-1.0) 06/19/17 11:15 Eos # 0.3 10^3/uL (0.0-0.7) 06/19/17 11:15 Baso # 0.0 10^3/uL (0.0-0.1) 06/19/17 11:15 Absolute Nucleated RBC 0.01 x10^3/uL 06/19/17 11:15 Nucleated RBC % 0.1 /100WBC 06/19/17 11:15 PT 10.8 secs (9.9-12.6) 06/19/17 11:15 INR 1.0 (0.8-1.2) 06/19/17 11:15 Anti-Xa Level 0.4 U/mL (-0.7) 06/20/17 01:10 Sodium 139 mmol/L (135-145) 06/21/17 04:34 Potassium 4.1 mmol/L (3.5-5.0) 06/21/17 04:34 Chloride 106 mmol/L (101-111) 06/21/17 04:34 Carbon Dioxide 26 mmol/L (21-32) 06/21/17 04:34 Anion Gap 7.0 (6-13) 06/21/17 04:34 BUN 47 mg/dL (6-20) H 06/21/17 04:34 Creatinine 1.9 mg/dL (0.4-1.0) H 06/21/17 04:34 Estimated GFR (MDRD) 26 (>89) L 06/21/17 04:34 Glucose 147 mg/dL (70-100) H 06/21/17 04:34 POC Whole Bld Glucose 223 mg/dL (70 - 100) H 06/21/17 11:20 Glycated Hemoglobin 7.7 % (4.6-6.2) H 06/20/17 11:14 Estim Average Glucose 174 (70-100) H 06/20/17 11:14 Calcium 9.0 mg/dL (8.5-10.3) 06/21/17 04:34 Magnesium 2.3 mg/dL (1.7-2.8) 06/19/17 16:04 Total Bilirubin 0.8 mg/dL (0.2-1.0) 06/19/17 11:15 AST 26 IU/L (10-42) 06/19/17 11:15 ALT 21 IU/L (10-60) 06/19/17 11:15 Alkaline Phosphatase 85 IU/L (42-121) 06/19/17 11:15 Troponin I 0.85 ng/mL (<0.49) H* 06/20/17 23:23 B-Natriuretic Peptide 652 pg/mL (5-100) H 06/20/17 04:18 Total Protein 7.4 g/dL (6.7-8.2) 06/19/17 11:15 Albumin 4.3 g/dL (3.2-5.5) 06/19/17 11:15 Globulin 3.1 g/dL (2.1-4.2) 06/19/17 11:15 Albumin/Globulin Ratio 1.4 (1.0-2.2) 06/19/17 11:15 Triglycerides 196 mg/dL (-149) H 06/20/17 04:18 Cholesterol 312 mg/dL (-199) H 06/20/17 04:18 LDL Cholesterol, Calc 198 mg/dL (-129) H 06/20/17 04:18 VLDL Cholesterol 39 mg/dL 06/20/17 04:18 HDL Cholesterol 75 mg/dL (60-) 06/20/17 04:18 LDL/HDL Ratio 2.6 (<4.4) 06/20/17 04:18 Cholesterol/HDL Ratio 4.2 (<4.4) 06/20/17 04:18 Lipase 34 U/L (22-51) 06/19/17 11:15 Urine Color YELLOW 06/20/17 00:20 Urine Clarity CLEAR (CLEAR) 06/20/17 00:20 Urine pH 5.5 PH (5.0-7.5) 06/20/17 00:20 Ur Specific [place] >=1.030 (1.002-1.030) H 06/20/17 00:20 Urine Protein 100 mg/dL (NEGATIVE) H 06/20/17 00:20 Urine Glucose (UA) NEGATIVE mg/dL (NEGATIVE) 06/20/17 00:20 Urine Ketones NEGATIVE mg/dL (NEGATIVE) 06/20/17 00:20 Urine Occult Blood SMALL (NEGATIVE) H 06/20/17 00:20 Urine Nitrite NEGATIVE (NEGATIVE) 06/20/17 00:20 Urine Bilirubin NEGATIVE (NEGATIVE) 06/20/17 00:20 Urine Urobilinogen 0.2 (NORMAL) E.U./dL (NORMAL) 06/20/17 00:20 Ur Leukocyte Esterase NEGATIVE (NEGATIVE) 06/20/17 00:20 Urine RBC 11-25 /HPF (0-5) H 06/20/17 00:20 Urine WBC 0-3 /HPF (0-5) 06/20/17 00:20 Urine WBC Clumps Cancelled 06/20/17 05:00 Ur Epithelial Cells Cancelled 06/20/17 05:00 Ur Squamous Epith Cells RARE Squamous (<= Few) 06/20/17 00:20 Urine Crystals Cancelled 06/20/17 05:00 Amorphous Sediment Cancelled 06/20/17 05:00 Urine Bacteria Rare /HPF (None Seen) 06/20/17 00:20 Urine Casts Cancelled 06/20/17 05:00 Urine Starch Cancelled 06/20/17 05:00 Urine Mucus Cancelled 06/20/17 05:00 Urine Trichomonas Cancelled 06/20/17 05:00 Urine Yeast Cancelled 06/20/17 05:00 Urine Sperm Cancelled 06/20/17 05:00 Ur Oval Fat Bodies Cancelled 06/20/17 05:00 Urine Culture Comments NOT INDICATED 06/20/17 00:20
--- NOTE | 2017-06-21 12:56 | ADVANCE CARE PLANNING NOTE ---
Advance Care Planning - Date/Time Date: 06/21/17 Time: 12:53 - Purpose of encounter Text: To determine Pt capacity for decision making related to Dementia and PTSD, in light of this mornings combative and irrational behavior. (She dressed and was about to leave to attend a psychiatry appointment at [facility], across the street from this hospital, and offered to have providers accompany her there). She kicked the TECHNICAL RECRUITER, Trey and pushed me away, before being convinced to stay and was given im Haldol for agitation). - Parties in attendance Parties in attendance: The patient and I were alone in her hospital room. - Decisional capacity Decisional capacity of: After the patient was less irrational earlier today, I completed an evaluation of her memory at bedside and she was found to have good decisional capacity. 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 She was to her second , and claims he was a "murderer" and is from him as well. She has 3 children, all of whom are gainfully employed. She is estranged from all of them. She has not selected anyone to be her health care proxy. 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 Now she lives alone in an apartment across the street from the Hospital. She walks daily, reads and watches movies, is interested in mojio signs and wants to write a book. She has had many caregivers, who help her by making meals, grocery shopping, cleaning and preparing her meds for the week into med trays. She claims she does not forget to take her meds, because "being independant means #1 caring for your health", which she does including fingerstick glucose checks. She has PTSD, from being born around the time of [facility] (she didn't say if she was born at [facility]). She sees a psychiatrist at [facility], and walks to appointments. She was on Zoloft 50 mg and felt "smooth", but when tthat was increased to 100 mg, she was shaky and fidgity and it was stopped (? if by her or by the psychiatrist). She believes in reincarnation and feels that in each lifetime, people make their souls better. If she has a cardiac arrest, she wants to go naturally and have no resuscitation, and a POLST form is on file in her EHR. - Objective/Medical story Objective/Medical Story: The patient was admitted with chest pain and ruled in for an NSTEMI. She has had coronary angios in the past. The last one was in 2016, showing diffuse disease, unamenable to revascularization, therefore no coronary angio transfer was done at this admission. She has no further angina or any CHF symptoms and is ambulating independently without cardiac symptoms (NYHA Class I). - Goals of Care Goals of care determinations: She wishes to return to her apartment, live independently and feels that she still has the capacity to make her own decisions and not be in a custodial. She agrees to continue to get help for buying food, preparing meals and cleaning the apartment. - Code Status Code Status: Do Not Attempt Resuscitation - Time Spent on Advance Care Planning Time spent on advance care plannin min.
[2017-06-21] MEDS: ATORVASTATIN 40 MG TABLET PO SCH (21:06)
[2017-06-21] MEDS: QUEtiapine 25 MG TABLET PO SCH (21:07)
[2017-06-22] MEDS: cloNIDine 0.1 MG TABLET PO SCH ×2 (00:20→08:30)
[2017-06-22] MEDS: SODIUM CHLORIDE FLUSH 0.9% 10 ML SYRINGE IVP SCH ×2 (04:33→10:57)
[2017-06-22 05:26] LABS: CALCIUM 9.2 mg/dL (8.5-10.3); CREATININE 1.9 mg/dL (0.4-1.0)
--- NOTE | 2017-06-22 07:49 | Discharge Plan ---
Discharge Plan Disposition: 01 Home, Self Care Condition: Stable Prescriptions: Apixaban [Eliquis] 2.5 mg PO BID #60 tablet Atorvastatin [Lipitor] 40 mg PO QPM #30 tablet hydrALAZINE [Apresoline] 10 mg PO BID #60 tablet Isosorbide Mononitrate ER [Imdur] 30 mg PO DAILY #30 tablet Diet: Diabetic Activity Restrictions: Activity as Tolerated Shower Restrictions: No Assistance Devices: Walker Instruction Topics: Atorvastatin tablets, Apixaban oral tablets, Carvedilol tablets, Hydralazine tablets, Heart Failure Warning Signs, Heart Attack Dc, Stroke Prevent Live W Atrial Fib, Atrial Fibrillation Additional Instructions or Follow Up instructions: You had a heart attack and new atrial fib. You are being discharged on slightly different medications. PLEASE take the medications as delineated on today's medication list and note: -Apixaban (Eliquis) is a new medication, started for Afib -Atorvastatin (Lipitor) is a new medication, started for your coronary artery dosease -Hydralazine is a new medication, started for the heart damage from this heart attack -Isosorb Mononitrate ER (Imduer) is a new medication, started for chest pain -Furosemide (Lasix) has a changed schedule of Mon, Wed, Fri only, not daily, due to worsened kidney function -restart Zoloft 50 mg daily, a new prescription was ordered -STOP the Lisinopril, because of the worsened kidney function -continue the same doses of Coreg, Plavix, Donepezil, and Insulin Resume your diabetic management as pre-hospitalization. See your PCP and Electrical Logging Operator and Psychiatrist in follow-up in the next 1-2 weeks. [facility]-Up Care: [facility], [facility] No Smoking: If you smoke, Please STOP! Call for help. Follow-up with: Felecia Paz MD [Primary Care Provider] -
[2017-06-22] MEDS: INSULIN ASPART 300 UNIT/3 ML PEN SUBQ SCH (08:23)
[2017-06-22] MEDS: CARVEDILOL 12.5 MG TABLET PO SCH (08:25)
[2017-06-22] MEDS: APIXABAN 2.5 MG TABLET PO SCH (08:25)
[2017-06-22] MEDS: FAMOTIDINE 20 MG TABLET PO SCH (08:27)
[2017-06-22] MEDS: CLOPIDOGREL 75 MG TABLET PO SCH (08:27)
[2017-06-22] MEDS: SERTRALINE 50 MG TABLET PO SCH (08:27)
[2017-06-22] MEDS: DONEPEZIL 5 MG TABLET PO SCH (08:31)
[2017-06-22] MEDS: hydrALAZINE 10 MG TABLET PO SCH (08:31)
[2017-06-22] MEDS: POLYETHYLENE GLYCOL 3350 17 GM PACKET PO SCH (08:34)
[2017-06-22] MEDS: ISOSORBIDE MONONITRATE ER 30 MG TABLET PO SCH (08:42)
[2017-06-22] MEDS ORDERED: CARVEDILOL 3.125 MG TABLET PO SCH (10:29)
[2017-06-22 11:19] VITALS: BP 148/76
[2017-06-22] MEDS: CARVEDILOL 3.125 MG TABLET PO SCH ×2 (11:40→11:44)
--- NOTE | 2017-07-25 18:56 | DISCHARGE SUMMARY ---
Physician: Susana Akers MD DATE OF ADMISSION: 06/19/2017 DATE OF DISCHARGE: 06/22/2017 This is a 76-year-old white female with a history of insulin-dependent diabetes , coronary disease, peripheral vascular disease, depression and PTSD, hypertension, CKD, dementia. The patient presented with new onset of chest pain that awoke her from sleep. In the emergency room, she was found to be in rapid atrial fibrillation that converted spontaneously to sinus rhythm. The emergency room doctor reached out to Cardiology for a transfer at [facility], however, they reviewed her 2016 coronary angiogram results which showed multivessel disease and stated that she was not revascularizable and not a candidate for repeat angiography and that medical management was advised. She was admitted for medical management for her VA and atrial fibrillation. HOSPITAL COURSE AND DISCHARGE DIAGNOSES 1. Acute NSTEMI. The patient had no further chest pain during this admission. Her troponins peaked at 0.85. Her echo showed LVEF of 25-30%, global hypokinesis was seen and mild diastolic dysfunction. The RV size was normal, but RV function was also moderately depressed. She also had mild mitral regurgitation and trace tricuspid regurgitation, normal calculated PA pressure. Her cardiac medications were adjusted (see below). 2. Ischemic cardiomyopathy with [place] Heart Association class 2, ACC/AHA, stage II. Patient had no dyspnea during this entire stay, was able to ambulate in the halls independently and did not desaturate. The patient's medications were adjusted (see below). 3. New onset of atrial fibrillation, paroxysmal. There were no further episodes of atrial fibrillation. The patient was placed on anticoagulation with Eliquis, and she was advised to followup with her etcher photoengraving or her PCP after discharge forfollow-up and management of #1, #2, and #3. 4. Diabetes, on insulin. The patient was on a diabetic diet and sliding scale insulin coverage while here. 5. Dementia. The patient had forgotten that she was on donepezil. This was continued once the pharmacist confirmed her dose with her pharmacy. The patient had intermittent confusion, also poor memory was seen while here. 6. Acute renal failure on chronic kidney disease. The patient's creatinine at admission was 1.6, which did increase to 1.9 at the time of discharge. Nephrotoxic agents were eliminated. She needs further followup of her chronic kidney disease and electrolytes, as an outpatient. 7. Posttraumatic stress disorder. 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 The social media assistant did reach out to her psychiatrist at [facility] who confirmed that she is followed there for her psychiatry management. This will need followup and further management. LABS AND IMAGING: reviewed and summarized above. ALLERGIES: NONE. MEDICATIONS AT THE TIME OF DISCHARGE 1. Insulin 70/30, 20 units every morning. 2. Aricept 5 mg daily. 3. Plavix 75 mg daily. 4. Carvedilol 6.25 mg b.i.d. 5. Novolin insulin 10 units subq every afternoon at 4:30. 6. Lisinopril 2.5 mg was discontinued. 7. Sertraline 50 mg daily. 8. Lasix 40 mg daily was discontinued. 9. Eliquis 2.5 mg b.i.d. 10. Lipitor 40 mg every evening. 11. Hydralazine 10 mg b.i.d. 12. Imdur 30 mg every morning. 13. Furosemide 40 mg every Saturday, Saturday, Saturday only. PHYSICAL EXAMINATION AT DISCHARGE VITAL SIGNS: Blood pressure 148/76, pulse of 56 in sinus rhythm, afebrile. Room air saturation 97%. HEENT: Unremarkable. NECK: Without JVD or carotid bruits. CHEST: Clear. HEART: Sounds normal. ABDOMEN: Soft with normal bowel sounds. EXTREMITIES: No edema. NEUROLOGIC: Intact except poor memory and occasional agitated behavior as described above. Followup: recommended with her PCP. The patient had a discharge plan spelled out for her because of her poor memory and this stated: You had a heart attack and new atrial fibrillation. You are being discharged on slightly different medications. Please take the medications as delineated. Eliquis is a new medication started for atrial fibrillation. Lipitor is a new medication started for your coronary disease. Hydralazine is a new medicationstarted for your heart damage from this heart attack. Imdur is a new medication started for chest pain. Lasix is a change schedule of Saturday, Saturday, Saturday only, not daily, due to worsening kidney function. Restart Zoloft 50 mg daily, a new prescription was ordered. Stop the Lisinopril because of the worsening kidney function. Continue the same doses of Coreg, Plavix, Donepezil and insulin. See your PCP and Ceramic Engineering Professor and Psychiatrist in followup in the next 1-2 weeks. CODE STATUS: DNR. Time required to complete this entire discharge, including dictation, coordination of care, review of labs and imaging and adjustment of medications: 60 minutes. TD: 07/25/2017 18:55 [facility]Mary
== END 2017-06-22 11:35 | disposition home or self-care (01) | DRG 281 ==
LOC: EDUNIT# → ED 10:57 → MS3 18:25
PROVIDERS: ADMIT Internal Medicine; ATTEND Internal Medicine
DX: R79.89 Other specified abnormal findings of blood chemistry (principal); I21.4 Non-ST elevation (NSTEMI) myocardial infarction; I25.10 Atherosclerotic heart disease of native coronary artery without angina pectoris; N17.9 Acute kidney failure, unspecified; F03.90 Unspecified dementia, unspecified severity, without behavioral disturbance, psychotic disturbance, mood disturbance, and anxiety; I13.0 Hypertensive heart and chronic kidney disease with heart failure and stage 1 through stage 4 chronic kidney disease, or unspecified chronic kidney disease; I50.20 Unspecified systolic (congestive) heart failure; F03.91 Unspecified dementia, unspecified severity, with behavioral disturbance; T50.1X5A Adverse effect of loop [high-ceiling] diuretics, initial encounter; I50.9 Heart failure, unspecified; E78.00 Pure hypercholesterolemia, unspecified; J44.9 Chronic obstructive pulmonary disease, unspecified; Z86.73 Personal history of transient ischemic attack (TIA), and cerebral infarction without residual deficits; T46.4X5A Adverse effect of angiotensin-converting-enzyme inhibitors, initial encounter; T50.0X5A Adverse effect of mineralocorticoids and their antagonists, initial encounter; Y92.230 Patient room in hospital as the place of occurrence of the external cause; I48.0 Paroxysmal atrial fibrillation; E11.22 Type 2 diabetes mellitus with diabetic chronic kidney disease; N18.9 Chronic kidney disease, unspecified; E11.51 Type 2 diabetes mellitus with diabetic peripheral angiopathy without gangrene; F32.9 Major depressive disorder, single episode, unspecified; F43.10 Post-traumatic stress disorder, unspecified; I25.110 Atherosclerotic heart disease of native coronary artery with unstable angina pectoris; I25.5 Ischemic cardiomyopathy; I25.2 Old myocardial infarction; Z66 Do not resuscitate; Z79.4 Long term (current) use of insulin; Z79.02 Long term (current) use of antithrombotics/antiplatelets; Z79.899 Other long term (current) drug therapy
CPT/HCPCS: 36415; 71046; 80048; 80053; 80061; 81001; 82270; 83036; 83690; 83721; 83735; 83880; 84484; 85025; 85520; 85610; 87086; 93005; 93306; 96374; 99284

== ENCOUNTER 2017-07-07 06:41 | Emergency (ER) | payer MEDICARE, MEDICAID ==
[2017-07-07 06:53] VITALS: BP 179/60
--- NOTE | 2017-07-07 07:25 | ED Physician Documentation ---
PD HPI ABD PAIN - Stated complaint Stated Complaint: LOWER BACK/GROIN PX - Chief complaint Chief Complaint: Back Pain - History obtained from History obtained from: Patient - History of Present Illness Timing - onset: Yesterday Timing - details: Intermittant (with episode of marked cramping lower/left abd about 4 am. It is easing now. She is concerned about bladder infection or spasms.) Quality: Cramping, Aching, Pain Location: Suprapubic, LLQ Radiation: Lower back, Left flank Associated symptoms: Nausea, Constipation (states less BMs for 2 days but the output has been soft to loose.). No: Fever, Vomiting, Diarrhea, Melena, Hematochezia, Near syncope / syncope Similar symptoms before: Diagnosis (bladder infections) Review of Systems Constitutional: denies: Fever, Chills, Myalgias Nose: denies: Rhinorrhea / runny nose, Congestion Throat: denies: Sore throat Respiratory: denies: Cough GI: reports: Nausea : reports: Frequency. 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 : Renal insuffiency HEENT: None Psych: Depression, Post traumatic stress disorder Musculoskeletal: Osteoarthritis Derm: None - Past Surgical History Past Surgical History: Yes Cardiovascular: Cardiac catheterization, Other HEENT: Tonsil/Adenoidectomy - Present Medications Home Medications: Ambulatory Orders Medication Instructions Recorded Confirmed Clopidogrel Bisulfate [Clopidogrel] 75 mg PO DAILY 06/19/17 06/19/17 Donepezil [Aricept] 5 mg PO DAILY 06/19/17 06/19/17 Insulin 70/30 Human [NovoLIN] 10 units SUBQ 1630 06/19/17 06/19/17 Insulin 70/30 Human [NovoLIN] 20 units SUBQ 0730 06/19/17 06/19/17 Apixaban [Eliquis] 2.5 mg PO BID #60 tablet 06/22/17 Atorvastatin [Lipitor] 40 mg PO QPM #30 tablet 06/22/17 Carvedilol [Coreg] 6.25 mg PO BID tablet 06/22/17 Furosemide 40 mg PO MOWEFR #15 tablet 06/22/17 Isosorbide Mononitrate ER [Imdur] 30 mg PO DAILY #30 tablet 06/22/17 Sertraline HCl 50 mg PO DAILY #30 tablet 06/22/17 hydrALAZINE [Apresoline] 10 mg PO BID #60 tablet 06/22/17 - Allergies Allergies/Adverse Reactions: Allergies Allergy/AdvReac Type Severity Reaction Status Date / Time No Known Drug Allergies Allergy Verified 07/07/17 06:53 - Social History Does the pt smoke?: No Smoking Status: Never smoker Does the pt drink ETOH?: No Does the pt have substance abuse?: No - Immunizations Immunizations are current?: No Immunizations: TDAP >10years/unknown - POLST Patient has POLST: Yes POLST Status: Full Code PD ED PE NORMAL - Vitals Vital signs reviewed: Yes - General General: Alert and oriented X 3, No acute distress, Well developed/nourished - HEENT HEENT: Moist mucous membranes, Pharynx benign - Neck Neck: Supple, no meningeal sign, No adenopathy - Cardiac Cardiac: RRR, No murmur - Respiratory Respiratory: Clear bilaterally - Abdomen Abdomen: Normal bowel sounds, Soft, Non tender, Non distended, No organomegaly - Female Female : Deferred - Rectal Rectal: Deferred - Back Back: No CVA TTP - Derm Derm: Normal color, Warm and dry Results - Vitals Vitals: Vital Signs - 24 hr 07/07/17 06:45 Temperature 35.9 C L Heart Rate 71 Respiratory 18 Rate Blood Pressure 179/60 H O2 Saturation 98 Oxygen O2 Source [Without Activity] Room air O2 Source Room air - Labs Labs: Laboratory Tests 07/07/17 07/07/17 07/07/17 07:45 07:58 07:58 WBC 6.6 RBC 3.87 L Hgb 10.8 L Hct 32.8 L MCV 84.7 MCH 27.9 MCHC 33.0 RDW 15.2 H Plt Count 273 MPV 8.0 Neut # 4.0 Lymph # 1.7 [place] # 0.6 Eos # 0.4 Baso # 0.1 Absolute Nucleated RBC 0.00 Nucleated RBC % 0.0 Sodium 138 Potassium 4.3 Chloride 105 Carbon Dioxide 25 Anion Gap 8.0 BUN 61 H Creatinine 2.2 H Estimated GFR (MDRD) 22 L Glucose 139 H Calcium 9.3 Total Bilirubin 0.5 AST 21 ALT 18 Alkaline Phosphatase 65 Total Protein 6.8 Albumin 4.0 Globulin 2.8 Albumin/Globulin Ratio 1.4 Lipase 33 Urine Color YELLOW Urine Clarity CLEAR Urine pH 6.0 Ur Specific [place] 1.015 Urine Protein TRACE Urine Glucose (UA) NEGATIVE Urine Ketones NEGATIVE Urine Occult Blood NEGATIVE Urine Nitrite NEGATIVE Urine Bilirubin NEGATIVE Urine Urobilinogen 0.2 (NORMAL) Ur Leukocyte Esterase NEGATIVE Ur Microscopic Review NOT INDICATED Urine Culture Comments NOT INDICATED PD MEDICAL DECISION MAKING - ED course Complexity details: reviewed results (normal urine and bladder scan. Benign exam at this time. She would prefer to go home and get ready for presybeterian at this point. ), considered differential, d/w patient Departure - Departure Disposition: 01 Home, Self Care Clinical Impression: Lower abdominal pain Condition: Stable Record reviewed to determine appropriate education?: Yes Instructions: ED Abdominal Pain Unkn Cause Follow-Up: Felecia Paz MD [Primary Care Provider] - Comments: Your urine test looks normal without any signs of infection. There is no urinary retention. Your blood count is good so not suggesting a significant infection. Drink lots of fluids. Use a daily fiber supplement. Tylenol if needed for pains. Return if worsening symptoms or problems. Discharge Date/Time: 07/07/17 08:38
[2017-07-07] MEDS ORDERED: ACETAMINOPHEN 325 MG TABLET PO STA (07:38)
[2017-07-07 07:54] LABS: BILIRUBIN,URINE NEGATIVE (NEGATIVE); GLUCOSE, URINE (UA) NEGATIVE (NEGATIVE); KETONES,URINE (UA) NEGATIVE (NEGATIVE); LEUKOCYTE ESTERASE, URINE NEGATIVE (NEGATIVE); NITRITE,URINE NEGATIVE (NEGATIVE); OCCULT BLOOD,URINE NEGATIVE (NEGATIVE); PROTEIN,URINE TRACE mg/dL (NEGATIVE); UROBILINOGEN,URINE 0.2 (NORMAL) E.U./dL (NORMAL)
[2017-07-07 07:56] LABS: CLARITY,URINE CLEAR (CLEAR)
[2017-07-07 08:04] LABS: BASOPHILS # (AUTO) 0.1 10^3/uL (0.0-0.1); BASOPHILS % (AUTO) 0.9 %; EOSINOPHILS # (AUTO) 0.4 10^3/uL (0.0-0.7); EOSINOPHILS % (AUTO) 5.3 %; HGB - HEMOGLOBIN 10.8 g/dL (12.0-16.0); LYMPHOCYTES # (AUTO) 1.7 10^3/uL (1.5-3.5); LYMPHOCYTES % (AUTO) 25.7 %; MEAN CORPUSCULAR HEMOGLOBIN 27.9 pg (27.0-31.0); MEAN CORPUSCULAR VOLUME 84.7 fL (81.0-99.0); MONOCYTES # (AUTO) 0.6 10^3/uL (0.0-1.0); MONOCYTES % (AUTO) 8.5 %; NEUTROPHILS % (AUTO) 59.6 %; PLT - PLATELET COUNT 273 10^3/uL (130-450); RED BLOOD COUNT 3.87 10^6/uL (4.20-5.40); RED CELL DISTRIBUTION WIDTH 15.2 % (12.0-15.0); WHITE BLOOD COUNT 6.6 x10^3/uL (4.8-10.8)
[2017-07-07 08:13] LABS: ALBUMIN/GLOBULIN RATIO 1.4 (1.0-2.2); BILIRUBIN,TOTAL 0.5 mg/dL (0.2-1.0); CALCIUM 9.3 mg/dL (8.5-10.3); CREATININE 2.2 mg/dL (0.4-1.0); TOTAL PROTEIN 6.8 g/dL (6.7-8.2)
== END 2017-07-07 08:38 | disposition home or self-care (01) ==
LOC: ED 06:41
DX: R10.32 Left lower quadrant pain (principal); I11.0 Hypertensive heart disease with heart failure; I50.9 Heart failure, unspecified; I25.119 Atherosclerotic heart disease of native coronary artery with unspecified angina pectoris; I25.2 Old myocardial infarction; J44.9 Chronic obstructive pulmonary disease, unspecified; F03.90 Unspecified dementia, unspecified severity, without behavioral disturbance, psychotic disturbance, mood disturbance, and anxiety; Z86.73 Personal history of transient ischemic attack (TIA), and cerebral infarction without residual deficits; E11.42 Type 2 diabetes mellitus with diabetic polyneuropathy; Z79.4 Long term (current) use of insulin; M19.90 Unspecified osteoarthritis, unspecified site
CPT/HCPCS: 36415; 51798; 80053; 81003; 83690; 85025; 99283; A9270; 81001; 87086

== ENCOUNTER 2017-07-13 03:45 | Outpatient (CLI) | payer MEDICARE, MEDICAID | END 2017-07-13 03:46 | disposition critical access hospital (66) | LOC: EMS 03:45 | PROVIDERS: ATTEND Surgery | DX: R53.1 Weakness (principal); R03.0 Elevated blood-pressure reading, without diagnosis of hypertension; R73.09 Other abnormal glucose | CPT/HCPCS: A0425; A0429 ==

== ENCOUNTER 2017-07-13 03:48 | Emergency (ER) | payer MEDICARE, MEDICAID ==
[2017-07-13] MEDS ORDERED: DEXTROSE 50% ABBOJECT 25 GM/50 ML SYRINGE IVP STA (04:04)
--- NOTE | 2017-07-13 04:08 | ED Physician Documentation ---
PD HPI ALTERED MENTAL STATUS - Stated complaint Stated Complaint: LOW BLOOD SUGAR - Chief complaint Chief Complaint: General - History obtained from History obtained from: Patient, EMS - History of Present Illness Timing - onset: Today Timing - duration: Hours Timing - details: Gradual onset. No: Still present (she is feeling better after meds given by EMS.) Quality / character: Confused, Disoriented Associated symptoms: No: Fever, Headache, Dyspnea, Cough, NVD Contributing factors: Diabetic (blood sugar was low at 35 per Medics. Feeling better after d50. 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: D50 Similar symptoms before: Diagnosis (has had some low sugar reading lately but this was first time of feeling this poorly with it.) Review of Systems Constitutional: denies: Fever, Chills Nose: denies: Rhinorrhea / runny nose, Congestion Throat: denies: Sore throat Cardiac: denies: Chest pain / pressure, Palpitations Respiratory: denies: Dyspnea, Cough GI: denies: Abdominal Pain, Nausea, Vomiting, Diarrhea : denies: Dysuria, Incontinent Skin: denies: Rash, Lesions PD PAST MEDICAL HISTORY - Past Medical History Cardiovascular: Congestive heart failure, Hypertension, High cholesterol, Coronary artery disease, Peripheral Vascular Disease, Angina, [place] Respiratory: COPD, Shortness of breath Neuro: Dementia, TIA Endocrine/Autoimmune: Type 2 diabetes GI: Other 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 : Renal insuffiency HEENT: None Psych: Depression, Post traumatic stress disorder Musculoskeletal: Osteoarthritis Derm: None - Past Surgical History Past Surgical History: Yes Cardiovascular: Cardiac catheterization, Other HEENT: Tonsil/Adenoidectomy - Present Medications Home Medications: Ambulatory Orders Medication Instructions Recorded Confirmed Clopidogrel Bisulfate [Clopidogrel] 75 mg PO DAILY 06/19/17 06/19/17 Donepezil [Aricept] 5 mg PO DAILY 06/19/17 06/19/17 Insulin 70/30 Human [NovoLIN] 10 units SUBQ 1630 06/19/17 06/19/17 Insulin 70/30 Human [NovoLIN] 20 units SUBQ 0730 06/19/17 06/19/17 Apixaban [Eliquis] 2.5 mg PO BID #60 tablet 06/22/17 Atorvastatin [Lipitor] 40 mg PO QPM #30 tablet 06/22/17 Carvedilol [Coreg] 6.25 mg PO BID tablet 06/22/17 Furosemide 40 mg PO MOWEFR #15 tablet 06/22/17 Isosorbide Mononitrate ER [Imdur] 30 mg PO DAILY #30 tablet 06/22/17 Sertraline HCl 50 mg PO DAILY #30 tablet 06/22/17 hydrALAZINE [Apresoline] 10 mg PO BID #60 tablet 06/22/17 - Allergies Allergies/Adverse Reactions: Allergies Allergy/AdvReac Type Severity Reaction Status Date / Time No Known Drug Allergies Allergy Verified 07/07/17 06:53 - Social History Does the pt smoke?: No Smoking Status: Never smoker Does the pt drink ETOH?: No Does the pt have substance abuse?: No - Immunizations Immunizations are current?: No Immunizations: TDAP >10years/unknown - POLST Patient has POLST: Yes POLST Status: Full Code PD ED PE NORMAL - Vitals Vital signs reviewed: Yes - General General: Alert and oriented X 3, No acute distress, Well developed/nourished - HEENT HEENT: Ears normal, Pharynx benign - Neck Neck: Supple, no meningeal sign, No adenopathy - Cardiac Cardiac: RRR, No murmur - Respiratory Respiratory: Clear bilaterally - Abdomen Abdomen: Normal bowel sounds, Soft, Non tender - Female Female : Deferred - Rectal Rectal: Deferred - Back Back: No CVA TTP - Derm Derm: Normal color, Warm and dry - Neuro Neuro: Alert and oriented X 3, econometrics professor 2-12 intact, No motor deficit, No sensory deficit, Normal speech Results - Vitals Vitals: Oxygen O2 Source [Without Activity] Room air O2 Source Room air - Labs Labs: Microbiology 07/13/17 04:10 Urine Culture - Final Urine,Clean Catch LESS THAN 10,000 COLONIES/ML polymicrobial growth including potential pathogens. This is suggestive of skin or other contamination. Laboratory Tests 07/13/17 07/13/17 07/13/17 03:54 04:10 05:00 WBC RBC Hgb Hct MCV MCH MCHC RDW Plt Count MPV Neut # Lymph # [place] # Eos # Baso # Absolute Nucleated RBC Nucleated RBC % Sodium Potassium Chloride Carbon Dioxide Anion Gap BUN Creatinine Estimated GFR (MDRD) Glucose POC Whole Bld Glucose 41 L* 149 H Calcium Total Bilirubin AST ALT Alkaline Phosphatase Total Protein Albumin Globulin Albumin/Globulin Ratio Lipase Urine Color YELLOW Urine Clarity CLEAR Urine pH 5.0 Ur Specific [place] 1.020 Urine Protein 100 H Urine Glucose (UA) NEGATIVE Urine Ketones NEGATIVE Urine Occult Blood NEGATIVE Urine Nitrite NEGATIVE Urine Bilirubin NEGATIVE Urine Urobilinogen 0.2 (NORMAL) Ur Leukocyte Esterase TRACE H Urine RBC None Seen Urine WBC 4-5 Ur Squamous Epith Cells RARE Squamous Urine Bacteria None Seen Ur Microscopic Review INDICATED Urine Culture Comments INDICATED Ethyl Alcohol 07/13/17 07/13/17 07/13/17 06:35 06:35 06:53 WBC 8.4 RBC 4.02 L Hgb 10.9 L Hct 35.0 L MCV 87.0 MCH 27.1 MCHC 31.2 L RDW 15.1 H Plt Count 291 MPV 8.0 Neut # 6.5 Lymph # 1.2 L [place] # 0.5 Eos # 0.1 Baso # 0.0 Absolute Nucleated RBC 0.00 Nucleated RBC % 0.0 Sodium 137 Potassium 4.4 Chloride 107 Carbon Dioxide 24 Anion Gap 6.0 BUN 56 H Creatinine 1.8 H Estimated GFR (MDRD) 27 L Glucose 207 H POC Whole Bld Glucose 162 H Calcium 9.1 Total Bilirubin 0.4 AST 22 ALT 14 Alkaline Phosphatase 68 Total Protein 6.9 Albumin 4.0 Globulin 2.9 Albumin/Globulin Ratio 1.4 Lipase 38 Urine Color Urine Clarity Urine pH Ur Specific [place] Urine Protein Urine Glucose (UA) Urine Ketones Urine Occult Blood Urine Nitrite Urine Bilirubin Urine Urobilinogen Ur Leukocyte Esterase Urine RBC Urine WBC Ur Squamous Epith Cells Urine Bacteria Ur Microscopic Review Urine Culture Comments Ethyl Alcohol < 5.0 PD MEDICAL DECISION MAKING - ED course Complexity details: reviewed results, re-evaluated patient, considered differential, d/w patient Departure - Departure Disposition: 01 Home, Self Care Clinical Impression: Hypoglycemia Condition: Stable Record reviewed to determine appropriate education?: Yes Comments: I would suggest decreasing your insulin to 18 units morning and 8 units afternoon (down from the current 20 units morning and 10 units afternoon). Usual food and fluids. Follow up with your PMD this coming week, call Saturday for an appt. Discharge Date/Time: 07/13/17 08:22
[2017-07-13 05:00] LABS: BILIRUBIN,URINE NEGATIVE (NEGATIVE); GLUCOSE, URINE (UA) NEGATIVE (NEGATIVE); KETONES,URINE (UA) NEGATIVE (NEGATIVE); LEUKOCYTE ESTERASE, URINE TRACE (NEGATIVE); NITRITE,URINE NEGATIVE (NEGATIVE); OCCULT BLOOD,URINE NEGATIVE (NEGATIVE); PROTEIN,URINE 100 mg/dL (NEGATIVE); UROBILINOGEN,URINE 0.2 (NORMAL) E.U./dL (NORMAL)
[2017-07-13 05:15] LABS: CLARITY,URINE CLEAR (CLEAR)
[2017-07-13 05:20] LABS: BACTERIA,URINE None Seen /HPF (None Seen); RBC,URINE None Seen /HPF (0-5); SQUAMOUS EPITHELIAL CELL,UR RARE Squamous (<= Few)
[2017-07-13 06:52] LABS: BASOPHILS % (AUTO) 0.4 %; EOSINOPHILS # (AUTO) 0.1 10^3/uL (0.0-0.7); EOSINOPHILS % (AUTO) 1.3 %; HGB - HEMOGLOBIN 10.9 g/dL (12.0-16.0); LYMPHOCYTES # (AUTO) 1.2 10^3/uL (1.5-3.5); LYMPHOCYTES % (AUTO) 14.9 %; MEAN CORPUSCULAR HEMOGLOBIN 27.1 pg (27.0-31.0); MEAN CORPUSCULAR HGB CONC 31.2 g/dL (32.0-36.0); MONOCYTES # (AUTO) 0.5 10^3/uL (0.0-1.0); MONOCYTES % (AUTO) 5.8 %; NEUTROPHILS # (AUTO) 6.5 10^3/uL (1.5-6.6); NEUTROPHILS % (AUTO) 77.6 %; PLT - PLATELET COUNT 291 10^3/uL (130-450); RED BLOOD COUNT 4.02 10^6/uL (4.20-5.40); RED CELL DISTRIBUTION WIDTH 15.1 % (12.0-15.0); WHITE BLOOD COUNT 8.4 x10^3/uL (4.8-10.8)
[2017-07-13 06:58] LABS: ALBUMIN/GLOBULIN RATIO 1.4 (1.0-2.2); ALKALINE PHOSPHATASE 68 IU/L (42-121); ALT ALANINE AMINOTRANSFERASE 14 IU/L (10-60); AST ASPARTATE AMINOTRANSFERASE 22 IU/L (10-42); BILIRUBIN,TOTAL 0.4 mg/dL (0.2-1.0); BUN - BLOOD UREA NITROGEN 56 mg/dL (6-20); CALCIUM 9.1 mg/dL (8.5-10.3); CARBON DIOXIDE - CO2 24 mmol/L (21-32); CHLORIDE 107 mmol/L (101-111); CREATININE 1.8 mg/dL (0.4-1.0); GFR - MDRD 27 (>89); GLUCOSE 207 mg/dL (70-100); LIPASE 38 U/L (22-51); SODIUM 137 mmol/L (135-145); TOTAL PROTEIN 6.9 g/dL (6.7-8.2)
[2017-07-13 08:25] VITALS: BP 198/80
== END 2017-07-13 08:22 | disposition home or self-care (01) ==
LOC: EDUNIT# → ED 03:48
DX: E11.649 Type 2 diabetes mellitus with hypoglycemia without coma (principal); E11.51 Type 2 diabetes mellitus with diabetic peripheral angiopathy without gangrene; I11.0 Hypertensive heart disease with heart failure; I50.9 Heart failure, unspecified; I25.10 Atherosclerotic heart disease of native coronary artery without angina pectoris; E78.00 Pure hypercholesterolemia, unspecified; I25.2 Old myocardial infarction; F03.90 Unspecified dementia, unspecified severity, without behavioral disturbance, psychotic disturbance, mood disturbance, and anxiety; Z86.73 Personal history of transient ischemic attack (TIA), and cerebral infarction without residual deficits; Z79.4 Long term (current) use of insulin
CPT/HCPCS: 80053; 81001; 83690; 85025; 87086; 99283; G0480; 36415; 80320; 81003

== ENCOUNTER 2017-08-04 07:03 | Emergency (ER) | payer MEDICARE, MEDICAID ==
[2017-08-04 07:29] VITALS: BP 134/56
--- NOTE | 2017-08-04 07:47 | ED Physician Documentation ---
History of Present Illness - Stated complaint Stated Complaint: PATCH REMOVAL - Chief complaint Chief Complaint: General - History obtained from History obtained from: Patient - History of Present Illness Timing: How many days ago (3) - Additonal information Additional information: 77-year-old female has gone to see a deliverer food at [facility] 4 days ago and a patch was placed on her left chest. The patches for monitoring with an event recorder and the patient reports that she had itching over her entire body prior to placement of the patch and she feels that the itching is worse since placement of the patch. She also feels the burning under the patch and wants to have the patch removed immediately. She has brought in the box the patch goes in and instructions on its removal. Review of Systems Constitutional: denies: Fever Eyes: denies: Decreased vision Ears: denies: Ear pain Nose: denies: Congestion Throat: denies: Sore throat Cardiac: denies: Chest pain / pressure Respiratory: denies: Dyspnea, Cough Skin: reports: Other (Generalized pruritus). 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 : Renal insuffiency HEENT: None Psych: Depression, Post traumatic stress disorder Musculoskeletal: Osteoarthritis Derm: None - Past Surgical History Past Surgical History: Yes Cardiovascular: Cardiac catheterization, Other HEENT: Tonsil/Adenoidectomy - Present Medications Home Medications: Ambulatory Orders Medication Instructions Recorded Confirmed Clopidogrel Bisulfate [Clopidogrel] 75 mg PO DAILY 06/19/17 06/19/17 Donepezil [Aricept] 5 mg PO DAILY 06/19/17 06/19/17 Insulin 70/30 Human [NovoLIN] 10 units SUBQ 1630 06/19/17 06/19/17 Insulin 70/30 Human [NovoLIN] 20 units SUBQ 0730 06/19/17 06/19/17 Apixaban [Eliquis] 2.5 mg PO BID #60 tablet 06/22/17 Atorvastatin [Lipitor] 40 mg PO QPM #30 tablet 06/22/17 Carvedilol [Coreg] 6.25 mg PO BID tablet 06/22/17 Furosemide 40 mg PO MOWEFR #15 tablet 06/22/17 Isosorbide Mononitrate ER [Imdur] 30 mg PO DAILY #30 tablet 06/22/17 Sertraline HCl 50 mg PO DAILY #30 tablet 06/22/17 hydrALAZINE [Apresoline] 10 mg PO BID #60 tablet 06/22/17 - Allergies Allergies/Adverse Reactions: Allergies Allergy/AdvReac Type Severity Reaction Status Date / Time No Known Drug Allergies Allergy Verified 07/07/17 06:53 - Social History Does the pt smoke?: No Smoking Status: Never smoker Does the pt drink ETOH?: No Does the pt have substance abuse?: No - Immunizations Immunizations are current?: No Immunizations: TDAP >10years/unknown - POLST Patient has POLST: Yes POLST Status: Full Code PD ED PE NORMAL - Vitals Vital signs reviewed: Yes (hypertensive with wide pulse pressure) - General General: No acute distress, Well developed/nourished - HEENT HEENT: Atraumatic, PERRL, EOMI - Respiratory Respiratory: No respiratory distress, Other (There is a monitoring patch with an event recorder placed over the left infraclavicular area. There is no surrounding skin erythema or irritation. The patch is removed and there is no erythema or irritation to the skin. ) - Neuro Neuro: No motor deficit, No sensory deficit Eye Opening: Spontaneous Motor: Obeys Commands Verbal: Oriented GCS Score: 15 - Psych Psych: Normal mood, Normal affect Results - Vitals Vitals: Vital Signs - 24 hr 08/04/17 07:25 Temperature 36.3 C L Heart Rate 64 Respiratory 17 Rate Blood Pressure 134/56 H O2 Saturation 99 Oxygen O2 Source [Without Activity] Room air O2 Source Room air PD MEDICAL DECISION MAKING - ED course Complexity details: considered differential, d/w patient ED course: 77 y/o female insists on having her recording device removed and this is done per the instructions and the box is sealed to send back the device. Departure - Departure Disposition: 01 Home, Self Care Clinical Impression: Skin irritation Condition: Stable Instructions: ED Dermatitis Contact Follow-Up: Felecia Paz MD [Primary Care Provider] -
== END 2017-08-04 07:50 | disposition home or self-care (01) ==
LOC: ED 07:03
DX: L98.8 Other specified disorders of the skin and subcutaneous tissue (principal); E11.51 Type 2 diabetes mellitus with diabetic peripheral angiopathy without gangrene; Z79.4 Long term (current) use of insulin; I11.0 Hypertensive heart disease with heart failure; I50.9 Heart failure, unspecified; Z79.01 Long term (current) use of anticoagulants
CPT/HCPCS: 99282

== ENCOUNTER 2017-09-15 09:30 | Emergency (ER) | END 2017-09-15 12:28 | disposition home or self-care (01) | CPT/HCPCS: 99283; A9270 ==

== ENCOUNTER 2017-10-09 10:40 | Outpatient (CLI) | payer MEDICARE, MEDICAID ==
[2017-10-09 11:01] LABS: HGB - HEMOGLOBIN 11.3 g/dL (12.0-16.0); MEAN CORPUSCULAR HEMOGLOBIN 28.7 pg (27.0-31.0); MEAN CORPUSCULAR HGB CONC 33.2 g/dL (32.0-36.0); MEAN CORPUSCULAR VOLUME 86.5 fL (81.0-99.0); MEAN PLATELET VOLUME 7.9 fL (7.9-10.8); RED BLOOD COUNT 3.92 10^6/uL (4.20-5.40); RED CELL DISTRIBUTION WIDTH 14.3 % (12.0-15.0); WHITE BLOOD COUNT 8.6 x10^3/uL (4.8-10.8)
[2017-10-09 11:12] LABS: CALCIUM 9.5 mg/dL (8.5-10.3); CREATININE 2.1 mg/dL (0.4-1.0)
[2017-10-09 11:21] LABS: HB2 TOTAL 11.6 g/dL; HEMOGLOBIN A1C 0.87 g/dL
== END 2017-10-09 10:41 | disposition home or self-care (01) ==
LOC: LAB 10:40
PROVIDERS: ATTEND Internal Medicine Nephrology
DX: E11.9 Type 2 diabetes mellitus without complications (principal); Z79.899 Other long term (current) drug therapy
CPT/HCPCS: 36415; 80048; 83036; 85027

== ENCOUNTER 2017-11-05 08:39 | Emergency (ER) | payer MEDICARE, MEDICAID ==
[2017-11-05] MEDS ORDERED: DEXAMETHASONE 10 MG/ML VIAL PO STA (09:10)
--- NOTE | 2017-11-05 09:14 | ED Physician Documentation ---
History of Present Illness - Stated complaint Stated Complaint: GLF/BILAT HIP PX/BACK PX - Chief complaint Chief Complaint: Back Pain - History obtained from History obtained from: Patient - History of Present Illness Timing: How many years ago (1) - Additonal information Additional information: 77-year-old female who uses a walker for ambulation was using her walker 3 days ago she lifted the front end up to get over the curb and fell over backwards. She has had pain in her body in general for the past year and this is worse.She describes the pain as in her shoulders and her hips and the pain preceded the fall and is worse. She has morning stiffness that resolves with movement. Review of Systems Constitutional: reports: Myalgias, Fatigue. denies: Fever, Chills Eyes: denies: Decreased vision Ears: denies: Ear pain Nose: denies: Rhinorrhea / runny nose, Congestion Throat: denies: Sore throat Cardiac: denies: Chest pain / pressure, Palpitations Respiratory: denies: Dyspnea, Cough GI: denies: Abdominal Pain, Nausea, Vomiting, Constipation, Diarrhea : denies: Dysuria, Frequency Skin: denies: Rash Musculoskeletal: reports: Back pain, Extremity pain. denies: Neck pain Neurologic: reports: Numbness. 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 : Renal insuffiency HEENT: None Psych: Depression, Post traumatic stress disorder Musculoskeletal: Osteoarthritis Derm: None - Past Surgical History Past Surgical History: Yes Cardiovascular: Cardiac catheterization, Other HEENT: Tonsil/Adenoidectomy - Present Medications Home Medications: Ambulatory Orders Medication Instructions Recorded Confirmed Clopidogrel Bisulfate [Clopidogrel] 75 mg PO DAILY 06/19/17 06/19/17 Donepezil [Aricept] 5 mg PO DAILY 06/19/17 06/19/17 Insulin 70/30 Human [NovoLIN] 10 units SUBQ 1630 06/19/17 06/19/17 Insulin 70/30 Human [NovoLIN] 20 units SUBQ 0730 06/19/17 06/19/17 Apixaban [Eliquis] 2.5 mg PO BID #60 tablet 06/22/17 Atorvastatin [Lipitor] 40 mg PO QPM #30 tablet 06/22/17 Carvedilol [Coreg] 6.25 mg PO BID tablet 06/22/17 Furosemide 40 mg PO MOWEFR #15 tablet 06/22/17 Isosorbide Mononitrate ER [Imdur] 30 mg PO DAILY #30 tablet 06/22/17 Sertraline HCl 50 mg PO DAILY #30 tablet 06/22/17 hydrALAZINE [Apresoline] 10 mg PO BID #60 tablet 06/22/17 Lidocaine Patch 5% [Lidoderm Patch] 1 each TOP DAILY PRN #10 patch 09/15/17 predniSONE [Prednisone] 20 mg PO DAILY #20 tablet 11/05/17 - Allergies Allergies/Adverse Reactions: Allergies Allergy/AdvReac Type Severity Reaction Status Date / Time No Known Drug Allergies Allergy Verified 09/15/17 10:08 - Social History Does the pt smoke?: No Smoking Status: Never smoker Does the pt drink ETOH?: No Does the pt have substance abuse?: No - Immunizations Immunizations are current?: No Immunizations: TDAP >10years/unknown - POLST Patient has POLST: Yes POLST Status: Full Code PD ED PE NORMAL - Vitals Vital signs reviewed: Yes (normal ) - General General: Alert and oriented X 3, No acute distress, Well developed/nourished - HEENT HEENT: Atraumatic, PERRL, EOMI - Neck Neck: Supple, no meningeal sign, No bony TTP, Other (There is tenderness to the trapezius "generally" ) - Cardiac Cardiac: RRR, No murmur - Respiratory Respiratory: No respiratory distress, Clear bilaterally - Abdomen Abdomen: Soft, Non tender - Back Back: No CVA TTP, No spinal TTP, Other (There is no midline tenderness. There is tenderness to the trapezius and to the SI joints bilaterally. She stands and moves her hips and hip joints without difficulty ) - Derm Derm: Normal color, Warm and dry, No rash - Extremities Extremities: No deformity, No edema - Neuro Neuro: Alert and oriented X 3, senior mechanical design engineer 2-12 intact, No motor deficit, No sensory deficit, Normal speech Eye Opening: Spontaneous Motor: Obeys Commands Verbal: Oriented GCS Score: 15 - Psych Psych: Normal mood, Normal affect Results - Vitals Vitals: Vital Signs - 24 hr 11/05/17 11/05/17 11/05/17 08:53 11:15 12:19 Temperature 36.3 C L Heart Rate 69 54 L 62 Respiratory 18 18 16 Rate Blood Pressure 100/56 L 123/54 L 115/60 O2 Saturation 97 96 94 Oxygen O2 Source [Without Activity] Room air O2 Source Room air - Labs Labs: Laboratory Tests 11/05/17 11/05/17 11/05/17 09:10 09:10 09:55 WBC 5.9 RBC 3.74 L Hgb 11.0 L Hct 32.3 L MCV 86.2 MCH 29.3 MCHC 34.0 RDW 13.8 Plt Count 273 MPV 8.0 Neut # (Auto) 3.7 Lymph # (Auto) 1.2 L [place] # (Auto) 0.5 Eos # (Auto) 0.5 Baso # (Auto) 0.0 Absolute Nucleated RBC 0.00 Nucleated RBC % 0.0 ESR 45 H Sodium 135 Potassium 4.3 Chloride 100 L Carbon Dioxide 25 Anion Gap 10.0 BUN 46 H Creatinine 2.2 H Estimated GFR (MDRD) 22 L Glucose 173 H Calcium 9.4 Total Bilirubin 0.8 AST 21 ALT 12 Alkaline Phosphatase 60 Total Creatine Kinase CK-MB (CK-2) C-Reactive Protein < 1.0 Total Protein 6.9 Albumin 3.8 Globulin 3.1 Albumin/Globulin Ratio 1.2 Lipase 34 11/05/17 11/05/17 09:55 09:55 WBC RBC Hgb Hct MCV MCH MCHC RDW Plt Count MPV Neut # (Auto) Lymph # (Auto) [place] # (Auto) Eos # (Auto) Baso # (Auto) Absolute Nucleated RBC Nucleated RBC % ESR Sodium Potassium Chloride Carbon Dioxide Anion Gap BUN Creatinine Estimated GFR (MDRD) Glucose Calcium Total Bilirubin AST ALT Alkaline Phosphatase Total Creatine Kinase 123 CK-MB (CK-2) 2.3 C-Reactive Protein Total Protein Albumin Globulin Albumin/Globulin Ratio Lipase Procedures - General procedure General procedure: Ankle brachial index: L leg 77/33(44) L arm 102/53 (67) index is 77/102= 0.75 R leg 76/33(40) R arm 88/49 (62) index is 76/88= 0.86 PD MEDICAL DECISION MAKING - ED course Complexity details: reviewed old records, reviewed results, re-evaluated patient , considered differential, d/w patient ED course: 77 y/o female with generalized pain in the shoulders and hips bilaterally for the past year that has put her in a walker, has progressed and is worse after a fall. I do not believe there is a bony injury due to the fall and I am more concerned about PMR. She is concerned about PAD. She is given a dose of decadron, her ESR and CRP are checked as well as an ankle/brachial index. Her ESR is elevated at 45 her distribution of pain is consistent with PMR and she does have the gel phenomena in the morning. In addition it appears she is having some numbness to her hands also a finding with PMR similar to carpal tunnel. She has been given dexamethasone here in the emergency department we will provide her with a prescription for some prednisone and she will follow up with her primary care doctor. The ankle brachial index is .75 on the left and .86 on the right. both numbers indicate peripheral arterial disease and further work up is indicated. She does complain of symptoms of claudication and a referral to vascular surgeon has been made. - Sepsis Event Vital Signs: Vital Signs - 24 hr 11/05/17 11/05/17 11/05/17 08:53 11:15 12:19 Temperature 36.3 C L Heart Rate 69 54 L 62 Respiratory 18 18 16 Rate Blood Pressure 100/56 L 123/54 L 115/60 O2 Saturation 97 96 94 Oxygen O2 Source [Without Activity] Room air O2 Source Room air Departure - Departure Disposition: 01 Home, Self Care Clinical Impression: PMR (polymyalgia rheumatica) Condition: Stable Instructions: Understanding Polymyalgia Rheumatica, Treatment for Polymyalgia Rheumatica Follow-Up: Felecia Paz MD [Primary Care Provider] - Frank Montes MD [Physician No Access] - Prescriptions: predniSONE [Prednisone] 20 mg PO DAILY #20 tablet Comments: Today it appears that the pain you are having in her shoulders and your hips are related to an inflammatory disease called polymyalgia rheumatica. Your symptoms should improve dramatically over the next week with a low dose of prednisone. The separate problem of claudication or the calf pain with walking will require further evaluation and follow-up with a vascular surgeon is required. Discharge Date/Time: 11/05/17 12:19
[2017-11-05] MEDS ORDERED: CHERRY SYRUP 10 ML UDC PO ONE (09:21)
[2017-11-05 10:04] LABS: BASOPHILS % (AUTO) 0.8 %; EOSINOPHILS # (AUTO) 0.5 10^3/uL (0.0-0.7); EOSINOPHILS % (AUTO) 7.9 %; LYMPHOCYTES # (AUTO) 1.2 10^3/uL (1.5-3.5); LYMPHOCYTES % (AUTO) 20.3 %; MEAN CORPUSCULAR HEMOGLOBIN 29.3 pg (27.0-31.0); MEAN CORPUSCULAR VOLUME 86.2 fL (81.0-99.0); MONOCYTES # (AUTO) 0.5 10^3/uL (0.0-1.0); MONOCYTES % (AUTO) 8.7 %; NEUTROPHILS # (AUTO) 3.7 10^3/uL (1.5-6.6); NEUTROPHILS % (AUTO) 62.3 %; PLT - PLATELET COUNT 273 10^3/uL (130-450); RED BLOOD COUNT 3.74 10^6/uL (4.20-5.40); RED CELL DISTRIBUTION WIDTH 13.8 % (12.0-15.0); WHITE BLOOD COUNT 5.9 x10^3/uL (4.8-10.8)
[2017-11-05 10:24] LABS: ALBUMIN 3.8 g/dL (3.2-5.5); ALBUMIN/GLOBULIN RATIO 1.2 (1.0-2.2); ALKALINE PHOSPHATASE 60 IU/L (42-121); ALT ALANINE AMINOTRANSFERASE 12 IU/L (10-60); AST ASPARTATE AMINOTRANSFERASE 21 IU/L (10-42); BILIRUBIN,TOTAL 0.8 mg/dL (0.2-1.0); BUN - BLOOD UREA NITROGEN 46 mg/dL (6-20); CALCIUM 9.4 mg/dL (8.5-10.3); CARBON DIOXIDE - CO2 25 mmol/L (21-32); CHLORIDE 100 mmol/L (101-111); CREATININE 2.2 mg/dL (0.4-1.0); GFR - MDRD 22 (>89); GLUCOSE 173 mg/dL (70-100); LIPASE 34 U/L (22-51); SODIUM 135 mmol/L (135-145); TOTAL PROTEIN 6.9 g/dL (6.7-8.2)
[2017-11-05 11:16] LABS: CRP - C-REACTIVE PROTEIN < 1.0 mg/dL (0-1.0)
[2017-11-05 12:20] VITALS: BP 115/60
== END 2017-11-05 12:19 | disposition home or self-care (01) ==
LOC: ED 08:39
DX: M35.3 Polymyalgia rheumatica (principal)
CPT/HCPCS: 36415; 80053; 82550; 82553; 83690; 85025; 85651; 86140; 99283; A9270

== ENCOUNTER 2017-12-21 08:42 | Emergency (ER) | payer MEDICARE, MEDICAID ==
[2017-12-21] MEDS ORDERED: predniSONE 20 MG TABLET PO STA (09:07)
--- NOTE | 2017-12-21 09:10 | ED Physician Documentation ---
History of Present Illness - Stated complaint Stated Complaint: FEMALE - Chief complaint Chief Complaint: UTI - History obtained from History obtained from: Patient - History of Present Illness Timing: Unknown - Additonal information Additional information: 77 y/o diabetic female with mild dementia has come to the ED today with aches and feels that she is dehydrated and may have a UTI. She has some trouble explaining her symptoms and she does not recall if she is on prednisone but she does indicate she saw Dr. Paz in follow up and she does not remember discussing PMR. She was given a script for prednisone 20mg daily on 11-05-17 for treatment of PMR that would have lasted 3 weeks. This is inadequate for treatment of PMR and she is now complaining of symptoms of pain in the hips and thighs again. I have asked her specifically if she was better for a while after her last visit here last month and she seems to think she was for a while. Review of Systems Constitutional: reports: Myalgias, Fatigue. denies: Fever, Chills Eyes: denies: Decreased vision Ears: denies: Ear pain Nose: denies: Congestion Throat: denies: Sore throat Cardiac: denies: Chest pain / pressure, Palpitations Respiratory: denies: Dyspnea, Cough GI: denies: Abdominal Pain, Nausea, Vomiting, Constipation, Diarrhea : reports: Frequency. 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 : Renal insuffiency HEENT: None Psych: Depression, Post traumatic stress disorder Musculoskeletal: Osteoarthritis Derm: None - Past Surgical History Past Surgical History: Yes Cardiovascular: Cardiac catheterization, Other HEENT: Tonsil/Adenoidectomy - Present Medications Home Medications: Ambulatory Orders Medication Instructions Recorded Confirmed Clopidogrel Bisulfate [Clopidogrel] 75 mg PO DAILY 06/19/17 06/19/17 Donepezil [Aricept] 5 mg PO DAILY 06/19/17 06/19/17 Insulin 70/30 Human [NovoLIN] 10 units SUBQ 1630 06/19/17 06/19/17 Insulin 70/30 Human [NovoLIN] 20 units SUBQ 0730 06/19/17 06/19/17 Apixaban [Eliquis] 2.5 mg PO BID #60 tablet 06/22/17 Atorvastatin [Lipitor] 40 mg PO QPM #30 tablet 06/22/17 Carvedilol [Coreg] 6.25 mg PO BID tablet 06/22/17 Furosemide 40 mg PO MOWEFR #15 tablet 06/22/17 Isosorbide Mononitrate ER [Imdur] 30 mg PO DAILY #30 tablet 06/22/17 Sertraline HCl 50 mg PO DAILY #30 tablet 06/22/17 hydrALAZINE [Apresoline] 10 mg PO BID #60 tablet 06/22/17 Lidocaine Patch 5% [Lidoderm Patch] 1 each TOP DAILY PRN #10 patch 09/15/17 predniSONE [Prednisone] 20 mg PO DAILY #20 tablet 11/05/17 predniSONE [Prednisone] 20 mg PO DAILY #20 tablet 12/21/17 - Allergies Allergies/Adverse Reactions: Allergies Allergy/AdvReac Type Severity Reaction Status Date / Time wheat Allergy Unknown Verified 12/21/17 08:51 - Social History Does the pt smoke?: No Smoking Status: Never smoker Does the pt drink ETOH?: No Does the pt have substance abuse?: No - Immunizations Immunizations are current?: No Immunizations: TDAP >10years/unknown - POLST Patient has POLST: Yes POLST Status: Full Code PD ED PE NORMAL - Vitals Vital signs reviewed: Yes (hypertensive mild ) - General General: No acute distress, Well developed/nourished - HEENT HEENT: Atraumatic, PERRL, EOMI, Other (dry mucous membranes ) - Neck Neck: Supple, no meningeal sign - Cardiac Cardiac: RRR, No murmur - Respiratory Respiratory: No respiratory distress, Clear bilaterally - Abdomen Abdomen: Soft, Non tender - Back Back: No CVA TTP, No spinal TTP - Derm Derm: Normal color, Warm and dry, No rash - Extremities Extremities: No deformity, No edema - Neuro Neuro: pediatric social worker 2-12 intact, No motor deficit, No sensory deficit, Normal speech Eye Opening: Spontaneous Motor: Obeys Commands Verbal: Oriented GCS Score: 15 - Psych Psych: Normal mood, Normal affect Results - Vitals Vitals: Vital Signs - 24 hr 12/21/17 08:48 Temperature 36.0 C L Heart Rate 71 Respiratory 16 Rate Blood Pressure 154/67 H O2 Saturation 97 Oxygen O2 Source [] Room air O2 Source Room air - Labs Labs: Laboratory Tests 12/21/17 10:08 Urine Color YELLOW Urine Clarity CLEAR Urine pH 5.5 Ur Specific [place] 1.020 Urine Protein TRACE Urine Glucose (UA) NEGATIVE Urine Ketones NEGATIVE Urine Occult Blood NEGATIVE Urine Nitrite NEGATIVE Urine Bilirubin NEGATIVE Urine Urobilinogen 0.2 (NORMAL) Ur Leukocyte Esterase NEGATIVE Ur Microscopic Review NOT INDICATED Urine Culture Comments NOT INDICATED Procedures - IVC sono (time) 0910 Bedside IVC sono: IVC measures (cm) (1.21), IVC collapsed c insp (cm) (complete), Dehydration (est 1 liter deficit) PD MEDICAL DECISION MAKING - ED course Complexity details: reviewed old records, reviewed results, re-evaluated patient, considered differential, d/w patient ED course: 77-year-old female with mild dementia has pain in her hips and legs as well as her upper back similar to what she has had previously. She is very vague about her symptomatology of urinary tract but feels that she might have an infection and she feels she might be dehydrated. On interrogation of the inferior vena cava she is dehydrated. She is administered oral fluids in order to obtain a urine specimen. She is also administered prednisone 20 mg orally for treatment of PMR. - Sepsis Event Vital Signs: Vital Signs - 24 hr 12/21/17 08:48 Temperature 36.0 C L Heart Rate 71 Respiratory 16 Rate Blood Pressure 154/67 H O2 Saturation 97 Oxygen O2 Source [] Room air O2 Source Room air Departure - Departure Disposition: 01 Home, Self Care Clinical Impression: PMR (polymyalgia rheumatica), Dehydration Instructions: ED Dehydration, Understanding Polymyalgia Rheumatica Follow-Up: Felecia Paz MD [Primary Care Provider] - Prescriptions: predniSONE [Prednisone] 20 mg PO DAILY #20 tablet Comments: Follow up with Dr. Paz about your PMR and your need for continued prednisone.
[2017-12-21 10:26] LABS: BILIRUBIN,URINE NEGATIVE (NEGATIVE); GLUCOSE, URINE (UA) NEGATIVE (NEGATIVE); KETONES,URINE (UA) NEGATIVE (NEGATIVE); LEUKOCYTE ESTERASE, URINE NEGATIVE (NEGATIVE); NITRITE,URINE NEGATIVE (NEGATIVE); OCCULT BLOOD,URINE NEGATIVE (NEGATIVE); PH,URINE 5.5 PH (5.0-7.5); PROTEIN,URINE TRACE mg/dL (NEGATIVE); UROBILINOGEN,URINE 0.2 (NORMAL) E.U./dL (NORMAL)
[2017-12-21 10:27] LABS: CLARITY,URINE CLEAR (CLEAR)
[2017-12-21 10:40] VITALS: BP 158/84
== END 2017-12-21 10:41 | disposition home or self-care (01) ==
LOC: ED 08:42
DX: M35.3 Polymyalgia rheumatica (principal); E86.0 Dehydration; I10 Essential (primary) hypertension; J44.9 Chronic obstructive pulmonary disease, unspecified; E11.9 Type 2 diabetes mellitus without complications; I73.9 Peripheral vascular disease, unspecified; F03.90 Unspecified dementia, unspecified severity, without behavioral disturbance, psychotic disturbance, mood disturbance, and anxiety; Z79.01 Long term (current) use of anticoagulants; Z79.4 Long term (current) use of insulin
CPT/HCPCS: 81003; 99283; J7512; 81001; 87086

== ENCOUNTER 2017-12-25 01:30 | Outpatient (CLI) | payer MEDICARE, MEDICAID | END 2017-12-25 01:31 | disposition critical access hospital (66) | LOC: EMS 01:30 | PROVIDERS: ATTEND Surgery | DX: R06.02 Shortness of breath (principal) | CPT/HCPCS: A0425; A0427 ==

== ENCOUNTER 2017-12-25 01:32 | Emergency (ER) | payer MEDICARE, MEDICAID ==
[2017-12-25] MEDS ORDERED: ALBUTEROL NEB 2.5 MG/3 ML INH STA (01:45)
[2017-12-25 02:18] LABS: BASOPHILS # (AUTO) 0.1 10^3/uL (0.0-0.1); BASOPHILS % (AUTO) 1.2 %; EOSINOPHILS # (AUTO) 0.5 10^3/uL (0.0-0.7); EOSINOPHILS % (AUTO) 6.2 %; HGB - HEMOGLOBIN 11.7 g/dL (12.0-16.0); LYMPHOCYTES # (AUTO) 2.1 10^3/uL (1.5-3.5); LYMPHOCYTES % (AUTO) 25.2 %; MEAN CORPUSCULAR HEMOGLOBIN 29.6 pg (27.0-31.0); MEAN CORPUSCULAR HGB CONC 33.9 g/dL (32.0-36.0); MEAN CORPUSCULAR VOLUME 87.2 fL (81.0-99.0); MEAN PLATELET VOLUME 7.9 fL (7.9-10.8); MONOCYTES # (AUTO) 0.5 10^3/uL (0.0-1.0); MONOCYTES % (AUTO) 6.6 %; NEUTROPHILS % (AUTO) 60.8 %; PLT - PLATELET COUNT 292 10^3/uL (130-450); RED BLOOD COUNT 3.95 10^6/uL (4.20-5.40); WHITE BLOOD COUNT 8.3 x10^3/uL (4.8-10.8)
[2017-12-25 02:31] LABS: ALBUMIN/GLOBULIN RATIO 1.3 (1.0-2.2); BILIRUBIN,TOTAL 0.5 mg/dL (0.2-1.0); CALCIUM 9.3 mg/dL (8.5-10.3); CREATININE 1.8 mg/dL (0.4-1.0); TOTAL PROTEIN 7.2 g/dL (6.7-8.2)
--- NOTE | 2017-12-25 02:44 | XRAY Report ---
Reason: short of breath Procedure Date: 12/25/2017 Accession Number: [id number] / [id number] Procedure: XR - Chest 2 View X-Ray CPT Code: 90249 FULL RESULT: EXAM: CHEST RADIOGRAPHY EXAM DATE: 12/25/2017 02:14 AM. CLINICAL HISTORY: Short of breath. COMPARISON: CHEST 2 VIEW 06/19/2017 11:10 AM. TECHNIQUE: 2 views. FINDINGS: Lungs/Pleura: Large lung volumes. Pulmonary vascular congestion and septal line thickening. No alveolar consolidation or pleural effusion seen. No pneumothorax. Mediastinum: Heart size is normal. Aortic atherosclerosis. Other: Osteopenia. IMPRESSION: 1. Pulmonary vascular congestion with septal line thickening possibly representing mild pulmonary edema. RADIA
[2017-12-25 03:05] VITALS: BP 196/88
--- NOTE | 2017-12-25 03:10 | ED Physician Documentation ---
PD HPI DYSPNEA - Stated complaint Stated Complaint: DYSPNEA - Chief complaint Chief Complaint: Resp - History obtained from History obtained from: Patient, EMS - History of Present Illness Timing - onset: Yesterday Timing - onset during: Light activity Timing - details: Gradual onset, Intermittant Inciting event(s): Other (missed doses of her medication) Worsened by: Exertion, Laying flat Associated symptoms: No: Fever, Cough, Chest pain / discomfort Similar symptoms before: Work up / diagnostics, Treatment Recently seen: Emergency Dept - Additional information Additional information: Patient is a 77 year old female with a history of chf and prior mi who is presenting to the emergency department for shortness of breath. patient states that she has had the symptoms for the last few days. patient states that she has not been taking her diuretic. Patient called the ambulance to take her across the street. Upon in initial evaluation by ems patient was found to be slightly hypoxic at 88% and hypertensive. patient was treated with lasix and nitro paste. patient also reports taking two of her lasix pills. Patient had a total of 120mg of lasix before her arrival. Review of Systems Constitutional: denies: Fever, Chills Cardiac: denies: Chest pain / pressure, Palpitations Respiratory: reports: Dyspnea. 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 : Renal insuffiency HEENT: None Psych: Depression, Post traumatic stress disorder Musculoskeletal: Osteoarthritis Derm: None - Past Surgical History Past Surgical History: Yes Cardiovascular: Cardiac catheterization, Other HEENT: Tonsil/Adenoidectomy - Present Medications Home Medications: Ambulatory Orders Medication Instructions Recorded Confirmed Clopidogrel Bisulfate [Clopidogrel] 75 mg PO DAILY 06/19/17 06/19/17 Donepezil [Aricept] 5 mg PO DAILY 06/19/17 06/19/17 Insulin 70/30 Human [NovoLIN] 10 units SUBQ 1630 06/19/17 06/19/17 Insulin 70/30 Human [NovoLIN] 20 units SUBQ 0730 06/19/17 06/19/17 Apixaban [Eliquis] 2.5 mg PO BID #60 tablet 06/22/17 Atorvastatin [Lipitor] 40 mg PO QPM #30 tablet 06/22/17 Carvedilol [Coreg] 6.25 mg PO BID tablet 06/22/17 Furosemide 40 mg PO MOWEFR #15 tablet 06/22/17 Isosorbide Mononitrate ER [Imdur] 30 mg PO DAILY #30 tablet 06/22/17 Sertraline HCl 50 mg PO DAILY #30 tablet 06/22/17 hydrALAZINE [Apresoline] 10 mg PO BID #60 tablet 06/22/17 Lidocaine Patch 5% [Lidoderm Patch] 1 each TOP DAILY PRN #10 patch 09/15/17 predniSONE [Prednisone] 20 mg PO DAILY #20 tablet 11/05/17 predniSONE [Prednisone] 20 mg PO DAILY #20 tablet 12/21/17 - Allergies Allergies/Adverse Reactions: Allergies Allergy/AdvReac Type Severity Reaction Status Date / Time wheat Allergy Unknown Verified 12/25/17 01:43 - Social History Does the pt smoke?: No Smoking Status: Never smoker Does the pt drink ETOH?: No Does the pt have substance abuse?: No - Immunizations Immunizations are current?: No Immunizations: TDAP >10years/unknown - POLST Patient has POLST: Yes POLST Status: Full Code PD ED PE NORMAL - Vitals Vital signs reviewed: Yes - General General: Alert and oriented X 3, No acute distress - HEENT HEENT: Atraumatic, PERRL - Neck Neck: No JVD - Cardiac Cardiac: RRR - Abdomen Abdomen: Soft - Extremities Extremities: No deformity, No edema - Neuro Neuro: Alert and oriented X 3, No motor deficit, Normal speech Eye Opening: Spontaneous Motor: Obeys Commands Verbal: Oriented GCS Score: 15 PD ED PE EXPANDED - Respiratory Respiratory: Rales, Right lower lobe, Left lower lobe Results - Vitals Vitals: Vital Signs - 24 hr 12/25/17 12/25/17 12/25/17 01:38 02:02 02:03 Temperature 36.6 C Heart Rate 86 84 80 Respiratory 18 17 16 Rate Blood Pressure 210/92 H 200/80 H O2 Saturation 90 L 100 12/25/17 12/25/17 02:38 03:04 Temperature Heart Rate 89 90 Respiratory 18 18 Rate Blood Pressure 193/81 H 196/88 H O2 Saturation 93 96 Oxygen O2 Source [Without Activity] Room air O2 Source Room air - EKG (time done) 0203 Rate: Rate (enter#) (79) Rhythm: NSR [place]: Normal Intervals: LBBB QRS: LVH Compare to prior EKG: Unchanged from prior EKG - Labs Labs: Laboratory Tests 12/25/17 12/25/17 12/25/17 02:10 02:10 02:10 WBC 8.3 RBC 3.95 L Hgb 11.7 L Hct 34.5 L MCV 87.2 MCH 29.6 MCHC 33.9 RDW 14.0 Plt Count 292 MPV 7.9 Neut # (Auto) 5.0 Lymph # (Auto) 2.1 [place] # (Auto) 0.5 Eos # (Auto) 0.5 Baso # (Auto) 0.1 Absolute Nucleated RBC 0.01 Nucleated RBC % 0.1 Sodium 134 L Potassium 4.7 Chloride 101 Carbon Dioxide 23 Anion Gap 10.0 BUN 45 H Creatinine 1.8 H Estimated GFR (MDRD) 27 L Glucose 275 H Calcium 9.3 Total Bilirubin 0.5 AST 20 ALT 13 Alkaline Phosphatase 87 Troponin I 0.27 B-Natriuretic Peptide Total Protein 7.2 Albumin 4.0 Globulin 3.2 Albumin/Globulin Ratio 1.3 Lipase 105 H 12/25/17 02:10 WBC RBC Hgb Hct MCV MCH MCHC RDW Plt Count MPV Neut # (Auto) Lymph # (Auto) [place] # (Auto) Eos # (Auto) Baso # (Auto) Absolute Nucleated RBC Nucleated RBC % Sodium Potassium Chloride Carbon Dioxide Anion Gap BUN Creatinine Estimated GFR (MDRD) Glucose Calcium Total Bilirubin AST ALT Alkaline Phosphatase Troponin I B-Natriuretic Peptide 493 H Total Protein Albumin Globulin Albumin/Globulin Ratio Lipase - Rads (name of study) chest x-ray Radiology: Final report received (pulmonary vascular congestion) PD MEDICAL DECISION MAKING - ED course Complexity details: reviewed old records, reviewed results, re-evaluated patient, considered differential, d/w patient ED course: Patient was seen and examined at bedside. ekg was performed and was unchanged from patient's previous. labs were drawn and chest x-ray ordered. patient urinated initially with 400ml of urine. Patient's chest x-ray showed mild pulmonary edema. Patient continued to diurese. Patient's blood pressure improved as well as her oxygenation. Patient's diagnostics were unremarkable. patient' blood pressure improved. Upon discharge patient was oxygenating at 97% on room air. patient required no further inpatient work up at this time and was stable for discharge with outpatient follow up. - Sepsis Event Vital Signs: Vital Signs - 24 hr 12/25/17 12/25/17 12/25/17 01:38 02:02 02:03 Temperature 36.6 C Heart Rate 86 84 80 Respiratory 18 17 16 Rate Blood Pressure 210/92 H 200/80 H O2 Saturation 90 L 100 12/25/17 12/25/17 02:38 03:04 Temperature Heart Rate 89 90 Respiratory 18 18 Rate Blood Pressure 193/81 H 196/88 H O2 Saturation 93 96 Oxygen O2 Source [Without Activity] Room air O2 Source Room air Departure - Departure Disposition: 01 Home, Self Care Clinical Impression: CHF (congestive heart failure) Condition: Good Instructions: ED CHF General Follow-Up: Felecia Paz MD [Primary Care Provider] - Comments: Your symptoms today are likely being caused by your heart failure and missed medications. For the next two days you should take two of your diuretic pills in the morning and one in the evening. After that you can return back to your normal medication regiment. You may return to the emergency department at any time for new, worsening or uncontrollable symptoms. Discharge Date/Time: 12/25/17 03:25
== END 2017-12-25 03:25 | disposition home or self-care (01) ==
LOC: EDUNIT# → ED 01:32
DX: I11.0 Hypertensive heart disease with heart failure (principal); I50.9 Heart failure, unspecified; I25.119 Atherosclerotic heart disease of native coronary artery with unspecified angina pectoris; E11.51 Type 2 diabetes mellitus with diabetic peripheral angiopathy without gangrene; Z79.4 Long term (current) use of insulin; Z91.14 Patient's other noncompliance with medication regimen
CPT/HCPCS: 36415; 71046; 80053; 83690; 83880; 84484; 85025; 93005; 94640; 99283; 99284

== ENCOUNTER 2018-01-19 01:34 | Outpatient (CLI) | payer MEDICARE, MEDICAID | END 2018-01-19 01:35 | disposition critical access hospital (66) | LOC: EMS 01:34 | PROVIDERS: ATTEND Surgery | DX: R52 Pain, unspecified (principal); R73.09 Other abnormal glucose | CPT/HCPCS: A0425; A0429 ==

== ENCOUNTER 2018-01-19 01:37 | Emergency (ER) | payer MEDICARE, MEDICAID ==
[2018-01-19] MEDS ORDERED: INSULIN REGULAR HUMAN 100 UNIT/1 ML 10 ML MDV SUBQ STA (01:45)
[2018-01-19] MEDS ORDERED: SODIUM CHLORIDE 0.9% 1,000 ML IV ONE ×2 (01:45)
--- NOTE | 2018-01-19 01:51 | ED Physician Documentation ---
History of Present Illness - Stated complaint Stated Complaint: HIGH BLOOD SUGAR/BACK PAIN - Chief complaint Chief Complaint: Back Pain - History obtained from History obtained from: Patient, EMS - History of Present Illness Timing: Today Pain level max: 3 Pain level now: 3 Improved by: nothing Worsened by: eating cake - Additonal information Additional information: 77 year old female with elevated blood sugar after eating cake at a [employer] tonight. States she feels "blah". Also states her back and shoulder have been hurting for months and is her rheumatoid arthritis. No vomiting. no chest pain. no fevers. no recent illness. No dyspnea. Review of Systems Constitutional: denies: Fever, Chills Ears: denies: Ear pain Nose: denies: Rhinorrhea / runny nose, Congestion Cardiac: denies: Chest pain / pressure, Palpitations, Calf pain Respiratory: denies: Dyspnea, Cough, Wheezing GI: denies: Vomiting Skin: denies: Rash Neurologic: denies: Focal weakness, Numbness, Confused, Headache PD PAST MEDICAL HISTORY - Past Medical History Cardiovascular: Congestive heart failure, Hypertension, High cholesterol, Coronary artery disease, Peripheral Vascular Disease, Angina, [place] Respiratory: COPD, Shortness of breath Endocrine/Autoimmune: Type 2 diabetes GI: Other 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 : Renal insuffiency HEENT: None Psych: Depression, Post traumatic stress disorder Musculoskeletal: Osteoarthritis Derm: None - Past Surgical History Past Surgical History: Yes Cardiovascular: Cardiac catheterization, Other HEENT: Tonsil/Adenoidectomy - Present Medications Home Medications: Ambulatory Orders Medication Instructions Recorded Confirmed Clopidogrel Bisulfate [Clopidogrel] 75 mg PO DAILY 06/19/17 06/19/17 Donepezil [Aricept] 5 mg PO DAILY 06/19/17 06/19/17 Insulin 70/30 Human [NovoLIN] 10 units SUBQ 1630 06/19/17 06/19/17 Insulin 70/30 Human [NovoLIN] 20 units SUBQ 0730 06/19/17 06/19/17 Apixaban [Eliquis] 2.5 mg PO BID #60 tablet 06/22/17 Carvedilol [Coreg] 6.25 mg PO BID tablet 06/22/17 Furosemide 40 mg PO MOWEFR #15 tablet 06/22/17 Isosorbide Mononitrate ER [Imdur] 30 mg PO DAILY #30 tablet 06/22/17 hydrALAZINE [Apresoline] 10 mg PO BID #60 tablet 06/22/17 - Allergies Allergies/Adverse Reactions: Allergies Allergy/AdvReac Type Severity Reaction Status Date / Time wheat Allergy Unknown Verified 01/19/18 02:25 - Social History Does the pt smoke?: No Smoking Status: Never smoker Does the pt drink ETOH?: No Does the pt have substance abuse?: No - Immunizations Immunizations are current?: No Immunizations: TDAP >10years/unknown - POLST Patient has POLST: Yes POLST Status: Full Code PD ED PE NORMAL - Vitals Vital signs reviewed: Yes - General General: Alert and oriented X 3, No acute distress - HEENT HEENT: Moist mucous membranes - Neck Neck: Supple, no meningeal sign - Cardiac Cardiac: RRR, Strong equal pulses - Respiratory Respiratory: No respiratory distress, Clear bilaterally - Abdomen Abdomen: Soft, Non tender, Non distended - Derm Derm: Warm and dry - Extremities Extremities: No edema - Neuro Neuro: Alert and oriented X 3 Results - Vitals Vitals: Vital Signs - 24 hr 01/19/18 01/19/18 01:39 02:31 Temperature 36.5 C Heart Rate 83 77 Respiratory 18 16 Rate Blood Pressure 112/77 133/79 H O2 Saturation 96 97 Oxygen O2 Source [Without Activity] Room air O2 Source Room air - Labs Labs: Laboratory Tests 01/19/18 01/19/18 01/19/18 01:53 01:53 01:53 WBC 12.3 H RBC 3.59 L Hgb 10.7 L Hct 31.8 L MCV 88.6 MCH 29.9 MCHC 33.7 RDW 14.0 Plt Count 261 MPV 8.7 Neut # (Auto) 10.0 H Lymph # (Auto) 1.4 L [place] # (Auto) 0.9 Eos # (Auto) 0.1 Baso # (Auto) 0.0 Absolute Nucleated RBC 0.00 Nucleated RBC % 0.0 VBG pH 7.341 VBG pCO2 49.4 VBG pO2 44.6 VBG HCO3 26.1 VBG Total CO2 27.6 VBG O2 Saturation 82.0 H VBG Base Excess -0.1 Sodium 134 L Potassium 4.6 Chloride 97 L Carbon Dioxide 26 Anion Gap 11.0 BUN 75 H Creatinine 2.7 H Estimated GFR (MDRD) 17 L Glucose 512 H* Calcium 9.1 Total Bilirubin 0.3 AST 24 ALT 17 Alkaline Phosphatase 104 Total Protein 6.9 Albumin 3.8 Globulin 3.1 Albumin/Globulin Ratio 1.2 Lipase 53 H Urine Color Urine Clarity Urine pH Ur Specific [place] Urine Protein Urine Glucose (UA) Urine Ketones Urine Occult Blood Urine Nitrite Urine Bilirubin Urine Urobilinogen Ur Leukocyte Esterase Ur Microscopic Review Urine Culture Comments Serum Ketones NEGATIVE 01/19/18 02:38 WBC RBC Hgb Hct MCV MCH MCHC RDW Plt Count MPV Neut # (Auto) Lymph # (Auto) [place] # (Auto) Eos # (Auto) Baso # (Auto) Absolute Nucleated RBC Nucleated RBC % VBG pH VBG pCO2 VBG pO2 VBG HCO3 VBG Total CO2 VBG O2 Saturation VBG Base Excess Sodium Potassium Chloride Carbon Dioxide Anion Gap BUN Creatinine Estimated GFR (MDRD) Glucose Calcium Total Bilirubin AST ALT Alkaline Phosphatase Total Protein Albumin Globulin Albumin/Globulin Ratio Lipase Urine Color YELLOW Urine Clarity CLEAR Urine pH 6.0 Ur Specific [place] 1.015 Urine Protein NEGATIVE Urine Glucose (UA) >=1000 H Urine Ketones NEGATIVE Urine Occult Blood TRACE-LYSE Urine Nitrite NEGATIVE Urine Bilirubin NEGATIVE Urine Urobilinogen 0.2 (NORMAL) Ur Leukocyte Esterase NEGATIVE Ur Microscopic Review NOT INDICATED Urine Culture Comments NOT INDICATED Serum Ketones PD MEDICAL DECISION MAKING - ED course Complexity details: reviewed old records, reviewed results, re-evaluated patient, considered differential, d/w patient ED course: Patient is a 77-year-old female with chronically poorly controlled diabetes who presents with hyperglycemia tonight. Not in DKA. No hyperosmolar nonketotic state. Given IV fluids and insulin. Blood sugar decreased and she feels better. Given Tylenol for her arthritis pains. We will have her follow-up with her doctor for further evaluation and care. Patient counseled regarding signs and symptoms for which I believe and urgent re-evaluation would be necessary. Patient with good understanding of and agreement to plan and is comfortable going home at this time This document was made in part using voice recognition software. While efforts are made to proofread this document, sound alike and grammatical errors may occur. Departure - Departure Disposition: 01 Home, Self Care Clinical Impression: Hyperglycemia Condition: Good Instructions: ED Hyperglycemia Diabetic Follow-Up: Felecia Paz MD [Primary Care Provider] - 01/20/18 Comments: Continue your medications at home. Follow-up with your doctor for further care. You may use Motrin or Tylenol as needed for pain.
[2018-01-19 02:04] LABS: VBG BASE EXCESS -0.1 mmol/L (-2 - +2); VBG PCO2 49.4 mmHg (41-51); VBG PH 7.341 (7.31-7.41); VBG PO2 44.6 mmHg (25-47); VBG TOTAL CO2 27.6 mmol/L (24-29)
[2018-01-19 02:05] LABS: BASOPHILS % (AUTO) 0.1 %; EOSINOPHILS # (AUTO) 0.1 10^3/uL (0.0-0.7); EOSINOPHILS % (AUTO) 0.6 %; HGB - HEMOGLOBIN 10.7 g/dL (12.0-16.0); LYMPHOCYTES # (AUTO) 1.4 10^3/uL (1.5-3.5); LYMPHOCYTES % (AUTO) 11.3 %; MEAN CORPUSCULAR HEMOGLOBIN 29.9 pg (27.0-31.0); MEAN CORPUSCULAR HGB CONC 33.7 g/dL (32.0-36.0); MEAN CORPUSCULAR VOLUME 88.6 fL (81.0-99.0); MEAN PLATELET VOLUME 8.7 fL (7.9-10.8); MONOCYTES # (AUTO) 0.9 10^3/uL (0.0-1.0); MONOCYTES % (AUTO) 7.4 %; NEUTROPHILS % (AUTO) 80.6 %; PLT - PLATELET COUNT 261 10^3/uL (130-450); RED BLOOD COUNT 3.59 10^6/uL (4.20-5.40); WHITE BLOOD COUNT 12.3 x10^3/uL (4.8-10.8)
[2018-01-19 02:13] LABS: KETONES, SERUM (ACETEST) NEGATIVE (NEGATIVE)
[2018-01-19 02:23] LABS: ALBUMIN 3.8 g/dL (3.2-5.5); ALBUMIN/GLOBULIN RATIO 1.2 (1.0-2.2); ALKALINE PHOSPHATASE 104 IU/L (42-121); ALT ALANINE AMINOTRANSFERASE 17 IU/L (10-60); AST ASPARTATE AMINOTRANSFERASE 24 IU/L (10-42); BILIRUBIN,TOTAL 0.3 mg/dL (0.2-1.0); BUN - BLOOD UREA NITROGEN 75 mg/dL (6-20); CALCIUM 9.1 mg/dL (8.5-10.3); CARBON DIOXIDE - CO2 26 mmol/L (21-32); CHLORIDE 97 mmol/L (101-111); CREATININE 2.7 mg/dL (0.4-1.0); GFR - MDRD 17 (>89); LIPASE 53 U/L (22-51); SODIUM 134 mmol/L (135-145); TOTAL PROTEIN 6.9 g/dL (6.7-8.2)
[2018-01-19 02:25] LABS: GLUCOSE 512 mg/dL (70-100)
[2018-01-19 02:41] LABS: BILIRUBIN,URINE NEGATIVE (NEGATIVE); GLUCOSE, URINE (UA) >=1000 mg/dL (NEGATIVE); KETONES,URINE (UA) NEGATIVE (NEGATIVE); LEUKOCYTE ESTERASE, URINE NEGATIVE (NEGATIVE); NITRITE,URINE NEGATIVE (NEGATIVE); OCCULT BLOOD,URINE TRACE-LYSE (NEGATIVE); PROTEIN,URINE NEGATIVE (NEGATIVE); UROBILINOGEN,URINE 0.2 (NORMAL) E.U./dL (NORMAL)
[2018-01-19 02:42] LABS: CLARITY,URINE CLEAR (CLEAR)
[2018-01-19] MEDS ORDERED: ACETAMINOPHEN 325 MG TABLET PO STA (02:54)
[2018-01-19 03:28] VITALS: BP 160/78
== END 2018-01-19 03:32 | disposition home or self-care (01) ==
LOC: EDUNIT# → ED 01:37
DX: E11.65 Type 2 diabetes mellitus with hyperglycemia (principal); I11.0 Hypertensive heart disease with heart failure; I50.9 Heart failure, unspecified; Z79.4 Long term (current) use of insulin
CPT/HCPCS: 36415; 80053; 81003; 82009; 82803; 83690; 85025; 96360; 99283; A9270; J1815; 81001; 87086

== ENCOUNTER 2018-02-20 08:57 | Outpatient (CLI) | payer MEDICARE, MEDICAID | END 2018-02-20 08:58 | disposition home or self-care (01) | LOC: NS 08:57 | PROVIDERS: ATTEND Internal Medicine | DX: Z71.3 Dietary counseling and surveillance (principal); E11.9 Type 2 diabetes mellitus without complications; Z79.4 Long term (current) use of insulin; M79.676 Pain in unspecified toe(s) | CPT/HCPCS: 36415; 84550; 97803 ==

== ENCOUNTER 2018-03-12 10:03 | Emergency (ER) | payer MEDICARE, MEDICAID ==
[2018-03-12] MEDS ORDERED: ACETAMINOPHEN 325 MG TABLET PO STA (11:11)
--- NOTE | 2018-03-12 12:23 | XRAY Report ---
Reason: fall Procedure Date: 03/12/2018 Accession Number: [id number] / [id number] Procedure: XR - Ribs w/PA Chest RT CPT Code: FULL RESULT: EXAM: RIGHT RIB RADIOGRAPHY EXAM DATE: 03/12/2018 11:52 AM. CLINICAL HISTORY: Fall. COMPARISON: CHEST 2 VIEW 12/25/2017 2:13 AM. TECHNIQUE: 1 view of the chest and 2 views of the ribs. FINDINGS: Bones: There is a minimally displaced fracture of the right anterolateral sixth rib. No additional fracture is appreciated. Lungs: Minimal platelike left basilar atelectasis. No significant effusion. No extraventilatory air. Mediastinum: Heart and mediastinal contours are unremarkable. Other: None. IMPRESSION: Minimally displaced fracture right anterolateral sixth rib as described. RADIA
--- NOTE | 2018-03-12 13:12 | ED Physician Documentation ---
History of Present Illness - Stated complaint Stated Complaint: RIB PX/2ND TO GLF - Chief complaint Chief Complaint: General - History obtained from History obtained from: Patient - History of Present Illness Timing: How many days ago (5) Pain level max: 6 Pain level now: 6 Quality: Sharp Radiates to: No Improved by: Nothing Worsened by: Movement Associated symptoms: Denies any - Additonal information Additional information: 77-year-old female with history of hypertension, COPD, diabetes here with complaint of accidentally falling on her right side 5 days ago causing her pain on her upper rib cage.. Patient stated that she was hoping will get better but it has not. However patient has not taken any medication for her pain. Denies any chest pain or shortness of breath. 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 : Renal insuffiency HEENT: None Psych: Depression, Post traumatic stress disorder Musculoskeletal: Osteoarthritis Derm: None - Past Surgical History Past Surgical History: Yes Cardiovascular: Cardiac catheterization, Other HEENT: Tonsil/Adenoidectomy - Present Medications Home Medications: Ambulatory Orders Medication Instructions Recorded Confirmed RX: Clopidogrel Bisulfate 75 mg PO DAILY 06/19/17 02/06/18 [Clopidogrel] RX: Donepezil [Aricept] 5 mg PO DAILY 06/19/17 02/06/18 RX: Insulin 70/30 Human [NovoLIN] 10 units SUBQ QDDINNER 06/19/17 02/06/18 RX: Insulin 70/30 Human [NovoLIN] 20 units SUBQ QDBREAKFAST 06/19/17 02/06/18 RX: Apixaban [Eliquis] 2.5 mg PO BID #60 tablet 06/22/17 02/06/18 RX: Carvedilol [Coreg] 6.25 mg PO BID tablet 06/22/17 02/06/18 RX: Isosorbide Mononitrate ER 30 mg PO DAILY #30 tablet 06/22/17 02/06/18 [Imdur] RX: hydrALAZINE [Apresoline] 10 mg PO BID #60 tablet 06/22/17 02/06/18 Citalopram [CeleXA] 10 mg PO DAILY 02/06/18 02/06/18 RX: Furosemide 40 mg PO DAILY 02/06/18 02/06/18 RX: lamoTRIgine [LaMICtal] 25 mg PO DAILY 02/06/18 02/06/18 Acetaminophen/Cod 300/30 [Tylenol 1 each PO Q8H PRN #14 tablet 03/12/18 #3] RX: Citalopram [CeleXA] 03/12/18 RX: Lisinopril 03/12/18 RX: Oxybutynin [Ditropan] 03/12/18 - Allergies Allergies/Adverse Reactions: Allergies Allergy/AdvReac Type Severity Reaction Status Date / Time wheat Allergy Unknown Verified 03/12/18 10:22 - Social History Does the pt smoke?: No Smoking Status: Never smoker Does the pt drink ETOH?: No Does the pt have substance abuse?: No - Immunizations Immunizations are current?: No Immunizations: TDAP >10years/unknown - POLST Patient has POLST: Yes POLST Status: Full Code PD ED PE NORMAL - Vitals Vital signs reviewed: Yes - General General: Alert and oriented X 3, No acute distress, Well developed/nourished - HEENT HEENT: Moist mucous membranes, Pharynx benign - Neck Neck: Supple, no meningeal sign - Cardiac Cardiac: RRR, No murmur - Respiratory Respiratory: No respiratory distress, Clear bilaterally, Other (Positive point tenderness on the right mid axillary area of middle aspect of her rib cage. No ecchymosis. No flail chest. No step-off.) - Abdomen Abdomen: Normal bowel sounds, Soft, Non tender, Non distended - Back Back: No CVA TTP, No spinal TTP - Derm Derm: Normal color, Warm and dry - Extremities Extremities: No deformity - Neuro Neuro: Alert and oriented X 3 - Psych Psych: Normal mood, Normal affect Results - Vitals Vitals: Vital Signs - 24 hr 12/19/18 12/19/18 10:19 14:19 Temperature 36.5 C 36.5 C Heart Rate 73 74 Respiratory 15 16 Rate Blood Pressure 119/49 L 120/66 O2 Saturation 95 100 Oxygen O2 Source [Without Activity] Room air O2 Source Room air PD MEDICAL DECISION MAKING - ED course Complexity details: reviewed results, re-evaluated patient, considered differential (Rib contusion, rib fracture, muscle strain,), d/w patient ED course: 1310 patient informed of x-ray results. Discussed prevention of pneumonia by doing some nice deep breathing every hour or 2 while awake. Instructed to take [id number] Tylenol as needed. Patient's family wanted to have Tylenol 3 instead. Departure - Departure Disposition: 01 Home, Self Care Clinical Impression: Closed rib fracture Qualifiers: Encounter type: initial encounter Rib fracture type: single rib Laterality: right Qualified Code(s): S22.31XA - Fracture of one rib, right side, initial encounter for closed fracture Condition: Stable Instructions: ED Fx Rib Prescriptions: Acetaminophen/Cod 300/30 [Tylenol #3] 1 each PO Q8H PRN #14 tablet PRN Reason: Pain Comments: You may take [id number] Tylenol for pain. Only take the Tylenol No. 3 for severe pain. Maintain safety. No driving, no alcohol, avoid working in high places especially when taking the narcotic pain medication. To prevent constipation from narcotic pain medicine take [id number] stool softener, drink water and eat high-fiber food. Follow-up with your primary doctor in a week. If worse return to the emergency room. Discharge Date/Time: 03/12/18 14:19
[2018-03-12 14:21] VITALS: BP 120/66
== END 2018-03-12 14:19 | disposition home or self-care (01) ==
LOC: ED 10:03
DX: S22.31XA Fracture of one rib, right side, initial encounter for closed fracture (principal); W18.30XA Fall on same level, unspecified, initial encounter; I10 Essential (primary) hypertension; E11.9 Type 2 diabetes mellitus without complications; Z79.4 Long term (current) use of insulin
CPT/HCPCS: 99283

== ENCOUNTER 2018-03-20 11:46 | Outpatient (CLI) | payer MEDICARE, MEDICAID ==
[2018-03-20 21:31] LABS: RHEUMATOID FACTOR NEGATIVE (Negative)
== END 2018-03-20 11:47 | disposition home or self-care (01) ==
LOC: LAB 11:46
PROVIDERS: ATTEND Internal Medicine
DX: M25.50 Pain in unspecified joint (principal)
CPT/HCPCS: 36415; 86140; 86200; 86430

== ENCOUNTER 2018-04-02 08:06 | Outpatient (CLI) | payer MEDICARE, MEDICAID | END 2018-04-02 08:07 | disposition critical access hospital (66) | LOC: EMS 08:06 | PROVIDERS: ATTEND Surgery | DX: R53.83 Other fatigue (principal) | CPT/HCPCS: A0425; A0429 ==

== ENCOUNTER 2018-04-02 08:10 | Emergency (ER) | payer MEDICARE, MEDICAID ==
[2018-04-02 08:17] VITALS: BP 143/89
[2018-04-02] MEDS ORDERED: ALBUTEROL NEB 2.5 MG/3 ML INH STA (08:18)
--- NOTE | 2018-04-02 08:23 | ED Physician Documentation ---
History of Present Illness - Stated complaint Stated Complaint: RT SIDE PX - Chief complaint Chief Complaint: Resp - Additonal information Additional information: hx from pt 77 f states she fell and broke a rib several weeks ago pain is better but now she is wheezing and soa no fever cough no hx asthma COPD non smoker no leg swelling Review of Systems Constitutional: denies: Fever, Chills Cardiac: denies: Chest pain / pressure Respiratory: reports: Dyspnea, Wheezing. 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 : Renal insuffiency HEENT: None Psych: Depression, Post traumatic stress disorder Musculoskeletal: Osteoarthritis Derm: None - Past Surgical History Past Surgical History: Yes Cardiovascular: Cardiac catheterization, Other HEENT: Tonsil/Adenoidectomy - Present Medications Home Medications: Ambulatory Orders Medication Instructions Recorded Confirmed Clopidogrel Bisulfate [Clopidogrel] 75 mg PO DAILY 06/19/17 02/06/18 Donepezil [Aricept] 5 mg PO DAILY 06/19/17 02/06/18 Insulin 70/30 Human [NovoLIN] 10 units SUBQ QDDINNER 06/19/17 02/06/18 Insulin 70/30 Human [NovoLIN] 20 units SUBQ QDBREAKFAST 06/19/17 02/06/18 Apixaban [Eliquis] 2.5 mg PO BID #60 tablet 06/22/17 02/06/18 Carvedilol [Coreg] 6.25 mg PO BID tablet 06/22/17 02/06/18 Isosorbide Mononitrate ER [Imdur] 30 mg PO DAILY #30 tablet 06/22/17 02/06/18 hydrALAZINE [Apresoline] 10 mg PO BID #60 tablet 06/22/17 02/06/18 Citalopram [CeleXA] 10 mg PO DAILY 02/06/18 02/06/18 Furosemide 40 mg PO DAILY 02/06/18 02/06/18 lamoTRIgine [LaMICtal] 25 mg PO DAILY 02/06/18 02/06/18 Acetaminophen/Cod 300/30 [Tylenol 1 each PO Q8H PRN #14 tablet 03/12/18 #3] Citalopram [CeleXA] 03/12/18 Lisinopril 03/12/18 Oxybutynin [Ditropan] 03/12/18 Albuterol Sulfate [Proair Hfa 2 puffs INH Q4H PRN #1 inhaler 04/02/18 Inhaler] Lidocaine Patch 5% [Lidoderm Patch] 1 patch TOP DAILY PRN #10 patch 04/02/18 - Allergies Allergies/Adverse Reactions: Allergies Allergy/AdvReac Type Severity Reaction Status Date / Time wheat Allergy Unknown Verified 04/02/18 08:17 - Social History Does the pt smoke?: No Smoking Status: Never smoker Does the pt drink ETOH?: No Does the pt have substance abuse?: No - Immunizations Immunizations are current?: No Immunizations: TDAP >10years/unknown - POLST Patient has POLST: Yes POLST Status: Full Code PD ED PE NORMAL - Vitals Vital signs reviewed: Yes - General General: Alert and oriented X 3 - HEENT HEENT: Atraumatic - Cardiac Cardiac: RRR - Respiratory Respiratory: Other (R wheezing, mild, no rib TTP) - Abdomen Abdomen: Soft, Non tender - Extremities Extremities: No edema, Other (both legs tender - pt states that is due to vascular dz and not new - no swelling) Results - Vitals Vitals: Vital Signs - 24 hr 04/02/18 04/02/18 08:14 08:43 Temperature 36.2 C L Heart Rate 62 74 Respiratory 16 18 Rate Blood Pressure 143/89 H O2 Saturation 97 Oxygen O2 Source [Without Activity] Room air O2 Source Room air - Rads (name of study) CXR Radiology: See rad report (prior rib fx not well seen, atelectasis, possible tiny R pleural effusion, no CHF or pna) Departure - Departure Disposition: 01 Home, Self Care Clinical Impression: Atelectasis of right lung Condition: Good Instructions: ED Atelectasis, ED Fx Rib Follow-Up: Felecia Paz MD [Primary Care Provider] - Prescriptions: Albuterol Sulfate [Proair Hfa Inhaler] 2 puffs INH Q4H PRN #1 inhaler PRN Reason: Shortness Of Air/Wheezing Lidocaine Patch 5% [Lidoderm Patch] 1 patch TOP DAILY PRN #10 patch PRN Reason: pain Comments: Because of the broken rib you have not been breathing deeply enough You do not have pneumonia or CHF But you do have areas of lung that are not getting well aerated because you cant draw a deep breath I have prescribed lidocaine patches - apply one over the broken rib for 12 hr a day And an albuterol inhaler to help with the wheezing. But most importantly we have you an incentive spirometer that i want you to use every hour while you are awake to re-expand your lungs. Follow up with your PMD Saturday or Saturday Return if worse
--- NOTE | 2018-04-02 08:54 | XRAY Report ---
Reason: recent rib fx now wheezing Procedure Date: 04/02/2018 Accession Number: [id number] / [id number] Procedure: XR - Chest 2 View X-Ray CPT Code: 47411 FULL RESULT: EXAM: CHEST RADIOGRAPHY EXAM DATE: 04/02/2018 8:24 AM CLINICAL HISTORY: Recent rib fx now wheezing. COMPARISON: Right rib series including frontal chest 03/12/2018. TECHNIQUE: 2 views. FINDINGS: Lungs/Pleura: Mild bibasilar atelectasis, increased on the right. Lungs otherwise unchanged. No pneumothorax. Possible trace right pleural effusion. Mediastinum: Upper normal heart size. Other: Previously described subtle anterolateral right sixth rib fracture is not well seen. IMPRESSION: 1. Mild bibasilar atelectasis, increased on the right. Possible tiny right pleural effusion. 2. No pneumothorax. 3. The subtle right rib fracture described previously is not well seen. RADIA
== END 2018-04-02 10:29 | disposition home or self-care (01) ==
LOC: EDUNIT# → ED 08:10
DX: J98.11 Atelectasis (principal); S22.31XA Fracture of one rib, right side, initial encounter for closed fracture; X58.XXXA Exposure to other specified factors, initial encounter; E11.51 Type 2 diabetes mellitus with diabetic peripheral angiopathy without gangrene; I25.2 Old myocardial infarction; I25.10 Atherosclerotic heart disease of native coronary artery without angina pectoris; E78.00 Pure hypercholesterolemia, unspecified; I11.0 Hypertensive heart disease with heart failure; I50.9 Heart failure, unspecified; Z79.4 Long term (current) use of insulin
CPT/HCPCS: 71046; 94640; 99283

== ENCOUNTER 2018-04-22 08:42 | Outpatient (CLI) | payer MEDICARE, MEDICAID ==
[2018-04-22 09:22] LABS: BASOPHILS # (AUTO) 0.1 10^3/uL (0.0-0.1); BASOPHILS % (AUTO) 1.1 %; EOSINOPHILS # (AUTO) 0.3 10^3/uL (0.0-0.7); EOSINOPHILS % (AUTO) 4.4 %; HGB - HEMOGLOBIN 11.1 g/dL (12.0-16.0); LYMPHOCYTES % (AUTO) 14.7 %; MEAN CORPUSCULAR HEMOGLOBIN 27.6 pg (27.0-31.0); MEAN CORPUSCULAR HGB CONC 32.1 g/dL (32.0-36.0); MEAN CORPUSCULAR VOLUME 85.9 fL (81.0-99.0); MEAN PLATELET VOLUME 8.5 fL (7.9-10.8); MONOCYTES # (AUTO) 0.7 10^3/uL (0.0-1.0); MONOCYTES % (AUTO) 10.1 %; NEUTROPHILS # (AUTO) 4.6 10^3/uL (1.5-6.6); NEUTROPHILS % (AUTO) 69.7 %; PLT - PLATELET COUNT 263 10^3/uL (130-450); RED BLOOD COUNT 4.04 10^6/uL (4.20-5.40); RED CELL DISTRIBUTION WIDTH 17.4 % (12.0-15.0); WHITE BLOOD COUNT 6.7 x10^3/uL (4.8-10.8)
[2018-04-22 09:45] LABS: HB2 TOTAL 11.9 g/dL; HEMOGLOBIN A1C 0.78 g/dL; HEMOGLOBIN A1C % 8.1 % (4.6-6.2)
[2018-04-22 09:48] LABS: ALBUMIN 3.7 g/dL (3.2-5.5); ALBUMIN/GLOBULIN RATIO 1.4 (1.0-2.2); ALKALINE PHOSPHATASE 91 IU/L (42-121); ALT ALANINE AMINOTRANSFERASE 40 IU/L (10-60); AST ASPARTATE AMINOTRANSFERASE 32 IU/L (10-42); BILIRUBIN,TOTAL 0.8 mg/dL (0.2-1.0); BUN - BLOOD UREA NITROGEN 50 mg/dL (6-20); CALCIUM 9.3 mg/dL (8.5-10.3); CARBON DIOXIDE - CO2 23 mmol/L (21-32); CHLORIDE 106 mmol/L (101-111); CHOL/HDL RATIO 3.2 (<4.4); CHOLESTEROL 200 mg/dL; CREATININE 2.1 mg/dL (0.4-1.0); GFR - MDRD 23 (>89); GLUCOSE 108 mg/dL (70-100); HDL CHOLESTEROL 62 mg/dL; LDL CHOLESTEROL,CALCULATED 121 mg/dL; SODIUM 139 mmol/L (135-145); TOTAL PROTEIN 6.4 g/dL (6.7-8.2); VLDL CHOLESTEROL 17 mg/dL
[2018-04-22 09:58] LABS: BILIRUBIN,URINE NEGATIVE (NEGATIVE); GLUCOSE, URINE (UA) NEGATIVE (NEGATIVE); KETONES,URINE (UA) NEGATIVE (NEGATIVE); LEUKOCYTE ESTERASE, URINE NEGATIVE (NEGATIVE); NITRITE,URINE NEGATIVE (NEGATIVE); OCCULT BLOOD,URINE NEGATIVE (NEGATIVE); PROTEIN,URINE NEGATIVE (NEGATIVE); UROBILINOGEN,URINE 0.2 (NORMAL) E.U./dL (NORMAL)
[2018-04-22 10:01] LABS: CLARITY,URINE CLEAR (CLEAR)
[2018-04-22 10:12] LABS: CREATININE,URINE 45.9 mg/dL; MICROALBUM/CREATININE RATIO,UR 115.5 ug/mg (<30.0); MICROALBUMIN,URINE 5.3 mg/dL (0-300.0)
[2018-04-22 10:21] LABS: THYROID STIMULATING HORMONE 1.97 uIU/mL (0.34-5.60)
== END 2018-04-22 08:43 | disposition home or self-care (01) ==
LOC: LAB 08:42
PROVIDERS: ATTEND Internal Medicine
DX: I50.9 Heart failure, unspecified (principal); Z13.6 Encounter for screening for cardiovascular disorders; I77.9 Disorder of arteries and arterioles, unspecified; K11.7 Disturbances of salivary secretion; I25.10 Atherosclerotic heart disease of native coronary artery without angina pectoris; I48.91 Unspecified atrial fibrillation; N18.9 Chronic kidney disease, unspecified; I13.0 Hypertensive heart and chronic kidney disease with heart failure and stage 1 through stage 4 chronic kidney disease, or unspecified chronic kidney disease; E11.22 Type 2 diabetes mellitus with diabetic chronic kidney disease; Z79.899 Other long term (current) drug therapy; F43.0 Acute stress reaction; E78.5 Hyperlipidemia, unspecified
CPT/HCPCS: 36415; 80053; 80061; 81001; 81003; 82043; 82570; 82607; 83036; 83721; 83880; 84443; 85025; 87086

== ENCOUNTER 2018-05-15 08:26 | Emergency (ER) | payer MEDICARE, MEDICAID ==
[2018-05-15] MEDS ORDERED: ONDANSETRON 4 MG/2 ML VIAL IVP STA (09:05)
[2018-05-15] MEDS ORDERED: SODIUM CHLORIDE 0.9% 1,000 ML IV ONE (09:05)
--- NOTE | 2018-05-15 09:15 | ED Physician Documentation ---
History of Present Illness - Stated complaint Stated Complaint: VOMITING - Chief complaint Chief Complaint: Abd Pain - History obtained from History obtained from: Patient, Friend - History of Present Illness Pain level max: 0 Pain level now: 0 - Additonal information Additional information: 78-year-old female states that she has not been feeling well for the past 2-3 weeks. States she has felt tired and weak. No symptoms that she can point to. She states she had several teeth removed approximately a week ago. No fevers. States she has not been eating and drinking well. States her blood sugars have been normal at home, but cannot tell me the number. Denies any abdominal pain. Denies any vomiting to me. No diarrhea. Nothing makes her symptoms better or worse Review of Systems Ten Systems: 10 systems reviewed and negative Constitutional: denies: Fever, Chills Ears: denies: Ear pain Nose: denies: Rhinorrhea / runny nose, Congestion Throat: denies: Sore throat Cardiac: denies: Chest pain / pressure, Palpitations Respiratory: denies: Dyspnea, Cough, Wheezing GI: reports: Nausea (occasional). denies: Vomiting, Diarrhea Skin: denies: Rash Musculoskeletal: denies: Neck pain, Back pain Neurologic: denies: Headache PD PAST MEDICAL HISTORY - Past Medical History Cardiovascular: Congestive heart failure, Hypertension, High cholesterol, Coronary artery disease, Peripheral Vascular Disease, Angina, [place] Respiratory: COPD, Shortness of breath Endocrine/Autoimmune: Type 2 diabetes GI: Other ICU RN: None : Renal insuffiency HEENT: None Psych: Depression, Post traumatic stress disorder Musculoskeletal: Osteoarthritis Derm: None - Past Surgical History Past Surgical History: Yes Cardiovascular: Cardiac catheterization, Other HEENT: Tonsil/Adenoidectomy - Present Medications Home Medications: Ambulatory Orders Medication Instructions Recorded Confirmed Clopidogrel Bisulfate [Clopidogrel] 75 mg PO DAILY 06/19/17 05/15/18 Donepezil [Aricept] 5 mg PO DAILY 06/19/17 05/15/18 Insulin 70/30 Human [NovoLIN] 10 units SUBQ QDDINNER 06/19/17 05/15/18 Insulin 70/30 Human [NovoLIN] 20 units SUBQ QDBREAKFAST 06/19/17 05/15/18 Apixaban [Eliquis] 2.5 mg PO BID #60 tablet 06/22/17 05/15/18 Carvedilol [Coreg] 6.25 mg PO BID tablet 06/22/17 05/15/18 Isosorbide Mononitrate ER [Imdur] 30 mg PO DAILY #30 tablet 06/22/17 05/15/18 hydrALAZINE [Apresoline] 10 mg PO BID #60 tablet 06/22/17 05/15/18 Citalopram [CeleXA] 10 mg PO DAILY 02/06/18 05/15/18 Furosemide 40 mg PO DAILY 02/06/18 05/15/18 lamoTRIgine [LaMICtal] 25 mg PO DAILY 02/06/18 05/15/18 Acetaminophen/Cod 300/30 [Tylenol 1 each PO Q8H PRN #14 tablet 03/12/18 05/15/18 #3] Citalopram [CeleXA] 1 tab PO DAILY 03/12/18 05/15/18 Lisinopril 1 tab PO DAILY 03/12/18 05/15/18 Oxybutynin [Ditropan] 1 tab PO DAILY 03/12/18 05/15/18 Albuterol Sulfate [Proair Hfa 2 puffs INH Q4H PRN #1 inhaler 04/02/18 05/15/18 Inhaler] - Allergies Allergies/Adverse Reactions: Allergies Allergy/AdvReac Type Severity Reaction Status Date / Time wheat Allergy Unknown Verified 05/15/18 08:35 - Social History Does the pt smoke?: No Smoking Status: Never smoker Does the pt drink ETOH?: No Does the pt have substance abuse?: No - Immunizations Immunizations are current?: No Immunizations: TDAP >10years/unknown - POLST Patient has POLST: Yes POLST Status: Full Code PD ED PE NORMAL - Vitals Vital signs reviewed: Yes - General General: Alert and oriented X 3, No acute distress, Well developed/nourished - HEENT HEENT: PERRL, Moist mucous membranes - Neck Neck: Supple, no meningeal sign - Cardiac Cardiac: RRR, Strong equal pulses - Respiratory Respiratory: No respiratory distress, Clear bilaterally - Abdomen Abdomen: Soft, Non tender, Non distended - Derm Derm: Warm and dry, No rash - Extremities Extremities: No edema, No calf tenderness / cord - Neuro Neuro: Alert and oriented X 3, No motor deficit, No sensory deficit - Psych Psych: Normal mood, Normal affect Results - Vitals Vitals: Vital Signs - 24 hr 05/15/18 05/15/18 08:32 11:20 Temperature 36.0 C L Heart Rate 100 90 Respiratory 14 16 Rate Blood Pressure 153/93 H 163/103 H O2 Saturation 100 98 Oxygen O2 Source [Without Activity] Room air O2 Source Room air - Labs Labs: Laboratory Tests 05/15/18 05/15/18 05/15/18 09:18 09:18 09:20 WBC 6.5 RBC 4.38 Hgb 12.0 Hct 36.9 L MCV 84.3 MCH 27.4 MCHC 32.5 RDW 17.3 H Plt Count 270 MPV 8.3 Neut # (Auto) 4.7 Lymph # (Auto) 0.8 L [place] # (Auto) 0.8 Eos # (Auto) 0.1 Baso # (Auto) 0.1 Absolute Nucleated RBC 0.00 Nucleated RBC % 0.0 Sodium 134 L Potassium 4.9 Chloride 102 Carbon Dioxide 18 L Anion Gap 14.0 H BUN 46 H Creatinine 2.2 H Estimated GFR (MDRD) 22 L Glucose 220 H POC Whole Bld Glucose 195 H Calcium 9.5 Total Bilirubin 0.8 AST 23 ALT 21 Alkaline Phosphatase 74 Total Protein 6.2 L Albumin 3.6 Globulin 2.6 Albumin/Globulin Ratio 1.4 Lipase 28 Urine Color Urine Clarity Urine pH Ur Specific [place] Urine Protein Urine Glucose (UA) Urine Ketones Urine Occult Blood Urine Nitrite Urine Bilirubin Urine Urobilinogen Ur Leukocyte Esterase Urine RBC Urine WBC Ur Squamous Epith Cells Urine Bacteria Urine Casts Ur Microscopic Review Urine Culture Comments 05/15/18 10:42 WBC RBC Hgb Hct MCV MCH MCHC RDW Plt Count MPV Neut # (Auto) Lymph # (Auto) [place] # (Auto) Eos # (Auto) Baso # (Auto) Absolute Nucleated RBC Nucleated RBC % Sodium Potassium Chloride Carbon Dioxide Anion Gap BUN Creatinine Estimated GFR (MDRD) Glucose POC Whole Bld Glucose Calcium Total Bilirubin AST ALT Alkaline Phosphatase Total Protein Albumin Globulin Albumin/Globulin Ratio Lipase Urine Color YELLOW Urine Clarity CLEAR Urine pH 6.0 Ur Specific [place] 1.015 Urine Protein 30 H Urine Glucose (UA) NEGATIVE Urine Ketones TRACE Urine Occult Blood NEGATIVE Urine Nitrite NEGATIVE Urine Bilirubin NEGATIVE Urine Urobilinogen 0.2 (NORMAL) Ur Leukocyte Esterase NEGATIVE Urine RBC 0-5 Urine WBC 0-3 Ur Squamous Epith Cells RARE Squamous Urine Bacteria Rare Urine Casts 0-2 WBC Casts Ur Microscopic Review INDICATED Urine Culture Comments NOT INDICATED PD MEDICAL DECISION MAKING - ED course Complexity details: reviewed old records, reviewed results, re-evaluated patient, considered differential, d/w patient, d/w family ED course: 78-year-old female, well-appearing, nontoxic. Afebrile. Abdomen soft, nontender nondistended on serial exam. No significant lab abnormalities. Feels much better after IV fluids. We will continue supportive care and follow-up with her doctor. Patient counseled regarding signs and symptoms for which I believe and urgent re-evaluation would be necessary. Patient with good understanding of and agreement to plan and is comfortable going home at this time This document was made in part using voice recognition software. While efforts are made to proofread this document, sound alike and grammatical errors may occur. Departure - Departure Disposition: 01 Home, Self Care Clinical Impression: Dehydration Condition: Good Instructions: ED Dehydration Follow-Up: Felecia Paz MD [Primary Care Provider] - Within 1 week Comments: Continue your medications at home. Return if you worsen. Drink plenty of fluids. Discharge Date/Time: 05/15/18 11:21
[2018-05-15 09:28] LABS: BASOPHILS # (AUTO) 0.1 10^3/uL (0.0-0.1); BASOPHILS % (AUTO) 0.9 %; EOSINOPHILS # (AUTO) 0.1 10^3/uL (0.0-0.7); EOSINOPHILS % (AUTO) 1.9 %; LYMPHOCYTES # (AUTO) 0.8 10^3/uL (1.5-3.5); MEAN CORPUSCULAR HEMOGLOBIN 27.4 pg (27.0-31.0); MEAN CORPUSCULAR HGB CONC 32.5 g/dL (32.0-36.0); MEAN CORPUSCULAR VOLUME 84.3 fL (81.0-99.0); MEAN PLATELET VOLUME 8.3 fL (7.9-10.8); MONOCYTES # (AUTO) 0.8 10^3/uL (0.0-1.0); MONOCYTES % (AUTO) 11.7 %; NEUTROPHILS # (AUTO) 4.7 10^3/uL (1.5-6.6); NEUTROPHILS % (AUTO) 73.5 %; PLT - PLATELET COUNT 270 10^3/uL (130-450); RED BLOOD COUNT 4.38 10^6/uL (4.20-5.40); RED CELL DISTRIBUTION WIDTH 17.3 % (12.0-15.0); WHITE BLOOD COUNT 6.5 x10^3/uL (4.8-10.8)
[2018-05-15 09:42] LABS: ALBUMIN 3.6 g/dL (3.2-5.5); ALBUMIN/GLOBULIN RATIO 1.4 (1.0-2.2); BILIRUBIN,TOTAL 0.8 mg/dL (0.2-1.0); CALCIUM 9.5 mg/dL (8.5-10.3); CREATININE 2.2 mg/dL (0.4-1.0); TOTAL PROTEIN 6.2 g/dL (6.7-8.2)
[2018-05-15] MEDS ORDERED: LACTATED RINGERS 1,000 ML IV STA (09:44)
[2018-05-15 10:52] LABS: BILIRUBIN,URINE NEGATIVE (NEGATIVE); GLUCOSE, URINE (UA) NEGATIVE (NEGATIVE); KETONES,URINE (UA) TRACE mg/dL (NEGATIVE); LEUKOCYTE ESTERASE, URINE NEGATIVE (NEGATIVE); NITRITE,URINE NEGATIVE (NEGATIVE); OCCULT BLOOD,URINE NEGATIVE (NEGATIVE); PROTEIN,URINE 30 mg/dL (NEGATIVE); UROBILINOGEN,URINE 0.2 (NORMAL) E.U./dL (NORMAL)
[2018-05-15 10:53] LABS: CLARITY,URINE CLEAR (CLEAR)
[2018-05-15 11:01] LABS: RBC,URINE 0-5 /HPF (0-5); SQUAMOUS EPITHELIAL CELL,UR RARE Squamous (<= Few)
[2018-05-15 11:02] LABS: BACTERIA,URINE Rare /HPF (None Seen); CASTS, URINE 0-2 WBC Casts /LPF
[2018-05-15 11:22] VITALS: BP 163/103
== END 2018-05-15 11:21 | disposition home or self-care (01) ==
LOC: ED 08:26
DX: E86.0 Dehydration (principal); I11.0 Hypertensive heart disease with heart failure; I50.9 Heart failure, unspecified; E78.00 Pure hypercholesterolemia, unspecified; I25.10 Atherosclerotic heart disease of native coronary artery without angina pectoris; I25.2 Old myocardial infarction; E11.51 Type 2 diabetes mellitus with diabetic peripheral angiopathy without gangrene; Z79.4 Long term (current) use of insulin
CPT/HCPCS: 36415; 80053; 81001; 83690; 85025; 96361; 96374; 99283; 99284; J7120; 81003; 87086

== ENCOUNTER 2018-05-25 17:31 | Outpatient (CLI) | payer MEDICARE, MEDICAID | END 2018-05-25 17:32 | disposition critical access hospital (66) | LOC: EMS 17:31 | PROVIDERS: ATTEND Surgery | DX: R11.0 Nausea (principal) | CPT/HCPCS: A0425; A0429 ==

== ENCOUNTER 2018-05-25 17:41 | Emergency (ER) | payer MEDICARE, MEDICAID ==
[2018-05-25 17:53] VITALS: BP 142/109
[2018-05-25 18:32] LABS: BASOPHILS # (AUTO) 0.1 10^3/uL (0.0-0.1); BASOPHILS % (AUTO) 0.9 %; EOSINOPHILS # (AUTO) 0.2 10^3/uL (0.0-0.7); EOSINOPHILS % (AUTO) 1.8 %; HGB - HEMOGLOBIN 13.1 g/dL (12.0-16.0); LYMPHOCYTES # (AUTO) 0.8 10^3/uL (1.5-3.5); LYMPHOCYTES % (AUTO) 8.7 %; MEAN CORPUSCULAR HEMOGLOBIN 25.8 pg (27.0-31.0); MEAN PLATELET VOLUME 8.6 fL (7.9-10.8); MONOCYTES # (AUTO) 0.9 10^3/uL (0.0-1.0); MONOCYTES % (AUTO) 9.1 %; NEUTROPHILS # (AUTO) 7.7 10^3/uL (1.5-6.6); NEUTROPHILS % (AUTO) 79.5 %; PLT - PLATELET COUNT 228 10^3/uL (130-450); RED BLOOD COUNT 5.07 10^6/uL (4.20-5.40); RED CELL DISTRIBUTION WIDTH 17.9 % (12.0-15.0); WHITE BLOOD COUNT 9.6 x10^3/uL (4.8-10.8)
[2018-05-25 18:47] LABS: ALBUMIN 3.5 g/dL (3.2-5.5); ALBUMIN/GLOBULIN RATIO 1.2 (1.0-2.2); CALCIUM 9.5 mg/dL (8.5-10.3); CREATININE 1.9 mg/dL (0.4-1.0); TOTAL PROTEIN 6.5 g/dL (6.7-8.2)
--- NOTE | 2018-05-25 20:07 | ED Physician Documentation ---
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 : Renal insuffiency HEENT: None Psych: Depression, Post traumatic stress disorder Musculoskeletal: Osteoarthritis Derm: None - Past Surgical History Past Surgical History: Yes Cardiovascular: Cardiac catheterization, Other HEENT: Tonsil/Adenoidectomy - Present Medications Home Medications: Ambulatory Orders Medication Instructions Recorded Confirmed Clopidogrel Bisulfate [Clopidogrel] 75 mg PO DAILY 06/19/17 05/15/18 Donepezil [Aricept] 5 mg PO DAILY 06/19/17 05/15/18 Insulin 70/30 Human [NovoLIN] 10 units SUBQ QDDINNER 06/19/17 05/15/18 Insulin 70/30 Human [NovoLIN] 20 units SUBQ QDBREAKFAST 06/19/17 05/15/18 Apixaban [Eliquis] 2.5 mg PO BID #60 tablet 06/22/17 05/15/18 Carvedilol [Coreg] 6.25 mg PO BID tablet 06/22/17 05/15/18 Isosorbide Mononitrate ER [Imdur] 30 mg PO DAILY #30 tablet 06/22/17 05/15/18 hydrALAZINE [Apresoline] 10 mg PO BID #60 tablet 06/22/17 05/15/18 Citalopram [CeleXA] 10 mg PO DAILY 02/06/18 05/15/18 Furosemide 40 mg PO DAILY 02/06/18 05/15/18 lamoTRIgine [LaMICtal] 25 mg PO DAILY 02/06/18 05/15/18 Acetaminophen/Cod 300/30 [Tylenol 1 each PO Q8H PRN #14 tablet 03/12/18 05/15/18 #3] Citalopram [CeleXA] 1 tab PO DAILY 03/12/18 05/15/18 Lisinopril 1 tab PO DAILY 03/12/18 05/15/18 Oxybutynin [Ditropan] 1 tab PO DAILY 03/12/18 05/15/18 Albuterol Sulfate [Proair Hfa 2 puffs INH Q4H PRN #1 inhaler 04/02/18 05/15/18 Inhaler] - Allergies Allergies/Adverse Reactions: Allergies Allergy/AdvReac Type Severity Reaction Status Date / Time wheat Allergy Unknown Verified 05/25/18 17:53 - Social History Does the pt smoke?: No Smoking Status: Never smoker Does the pt drink ETOH?: No Does the pt have substance abuse?: No - Immunizations Immunizations are current?: No Immunizations: TDAP >10years/unknown - POLST Patient has POLST: Yes POLST Status: Full Code Results - Vitals Vitals: Vital Signs - 24 hr 05/25/18 17:51 Temperature 36 C L Heart Rate 100 Respiratory 20 Rate Blood Pressure 142/109 H O2 Saturation 100 Oxygen O2 Source [Without Activity] Room air O2 Source Room air - Labs Labs: Laboratory Tests 05/25/18 05/25/18 18:25 18:25 WBC 9.6 RBC 5.07 Hgb 13.1 Hct 42.1 MCV 83.0 MCH 25.8 L MCHC 31.0 L RDW 17.9 H Plt Count 228 MPV 8.6 Neut # (Auto) 7.7 H Lymph # (Auto) 0.8 L [place] # (Auto) 0.9 Eos # (Auto) 0.2 Baso # (Auto) 0.1 Absolute Nucleated RBC 0.01 Nucleated RBC % 0.1 Sodium 134 L Potassium 4.3 Chloride 101 Carbon Dioxide 19 L Anion Gap 14.0 H BUN 65 H Creatinine 1.9 H Estimated GFR (MDRD) 26 L Glucose 306 H Calcium 9.5 Total Bilirubin 1.0 AST 103 H ALT 163 H Alkaline Phosphatase 163 H Total Protein 6.5 L Albumin 3.5 Globulin 3.0 Albumin/Globulin Ratio 1.2 Lipase 66 H
== END 2018-05-25 20:20 | disposition left against medical advice (07) ==
LOC: EDUNIT# → ED 17:41
DX: Z53.21 Procedure and treatment not carried out due to patient leaving prior to being seen by health care provider (principal)
CPT/HCPCS: 36415; 80053; 83690; 85025; 99282

== ENCOUNTER 2018-05-29 23:13 | Outpatient (CLI) | payer MEDICARE, MEDICAID | END 2018-05-29 23:14 | disposition critical access hospital (66) | LOC: EMS 23:13 | PROVIDERS: ATTEND Surgery | DX: M79.89 Other specified soft tissue disorders (principal); M79.672 Pain in left foot; M79.671 Pain in right foot; R11.0 Nausea; T50.996A Underdosing of other drugs, medicaments and biological substances, initial encounter; Z91.138 Patient's unintentional underdosing of medication regimen for other reason; Y92.009 Unspecified place in unspecified non-institutional (private) residence as the place of occurrence of the external cause | CPT/HCPCS: A0425; A0429 ==

== ENCOUNTER 2018-05-29 23:16 | Emergency (ER) | payer MEDICARE, MEDICAID ==
--- NOTE | 2018-05-29 23:39 | ED Physician Documentation ---
History of Present Illness - Stated complaint Stated Complaint: BLE SWELLING - Chief complaint Chief Complaint: General - History obtained from History obtained from: Patient - History of Present Illness Timing: Other (one month) Pain level max: 0 Pain level now: 0 Improved by: nothing Worsened by: per patient, any PO intake - Additonal information Additional information: c/o nausea but no vomiting. she has had this for one month and says she has not been able to tolerate any of her medications, any food, and only has had "about half a cup of water" during this time. She denies any pain including abdominal pain. She tells me her symptoms are due to "malfunctioning gallbladder", although she says she arrived at this diagnosis and was not told by a physician of any gallbladder problems. Review of Systems Constitutional: denies: Fever, Chills, Sweats Cardiac: reports: Reviewed and negative Respiratory: reports: Reviewed and negative GI: reports: Nausea. 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 : Renal insuffiency HEENT: None Psych: Depression, Post traumatic stress disorder Musculoskeletal: Osteoarthritis Derm: None - Past Surgical History Past Surgical History: Yes Cardiovascular: Cardiac catheterization, Other HEENT: Tonsil/Adenoidectomy - Present Medications Home Medications: Ambulatory Orders Medication Instructions Recorded Confirmed Clopidogrel Bisulfate [Clopidogrel] 75 mg PO DAILY 06/19/17 05/15/18 Donepezil [Aricept] 5 mg PO DAILY 06/19/17 05/15/18 Insulin 70/30 Human [NovoLIN] 10 units SUBQ QDDINNER 06/19/17 05/15/18 Insulin 70/30 Human [NovoLIN] 20 units SUBQ QDBREAKFAST 06/19/17 05/15/18 Apixaban [Eliquis] 2.5 mg PO BID #60 tablet 06/22/17 05/15/18 Carvedilol [Coreg] 6.25 mg PO BID tablet 06/22/17 05/15/18 Isosorbide Mononitrate ER [Imdur] 30 mg PO DAILY #30 tablet 06/22/17 05/15/18 hydrALAZINE [Apresoline] 10 mg PO BID #60 tablet 06/22/17 05/15/18 Citalopram [CeleXA] 10 mg PO DAILY 02/06/18 05/15/18 Furosemide 40 mg PO DAILY 02/06/18 05/15/18 lamoTRIgine [LaMICtal] 25 mg PO DAILY 02/06/18 05/15/18 Acetaminophen/Cod 300/30 [Tylenol 1 each PO Q8H PRN #14 tablet 03/12/18 05/15/18 #3] Citalopram [CeleXA] 1 tab PO DAILY 03/12/18 05/15/18 Lisinopril 1 tab PO DAILY 03/12/18 05/15/18 Oxybutynin [Ditropan] 1 tab PO DAILY 03/12/18 05/15/18 Albuterol Sulfate [Proair Hfa 2 puffs INH Q4H PRN #1 inhaler 04/02/18 05/15/18 Inhaler] Ondansetron Odt [Zofran] 4 mg TL Q6H PRN #10 tablet 05/30/18 - Allergies Allergies/Adverse Reactions: Allergies Allergy/AdvReac Type Severity Reaction Status Date / Time wheat Allergy Unknown Verified 05/29/18 23:21 - Social History Does the pt smoke?: No Smoking Status: Never smoker Does the pt drink ETOH?: No Does the pt have substance abuse?: No - Immunizations Immunizations are current?: No Immunizations: TDAP >10years/unknown - POLST Patient has POLST: Yes POLST Status: Full Code PD ED PE NORMAL - Vitals Vital signs reviewed: Yes - General General: Alert and oriented X 3, No acute distress, Well developed/nourished - HEENT HEENT: Moist mucous membranes - Neck Neck: Supple, no meningeal sign - Cardiac Cardiac: RRR, No murmur - Respiratory Respiratory: No respiratory distress, Clear bilaterally - Abdomen Abdomen: Normal bowel sounds, Soft, Non tender, Non distended - Derm Derm: Normal color, Warm and dry - Extremities Extremities: Other (1+ bilateral pitting edema) - Neuro Neuro: Alert and oriented X 3, survey chief 2-12 intact, No motor deficit, No sensory deficit, Normal speech Eye Opening: Spontaneous Motor: Obeys Commands Verbal: Oriented GCS Score: 15 - Psych Psych: Other (odd, labile affect) Results - Vitals Vitals: Vital Signs - 24 hr 05/29/18 05/30/18 05/30/18 23:21 00:03 01:49 Temperature 36.6 C Heart Rate 96 89 89 Respiratory 16 20 18 Rate Blood Pressure 149/89 H 126/102 H 145/90 H O2 Saturation 98 100 100 05/30/18 02:28 Temperature Heart Rate 84 Respiratory 16 Rate Blood Pressure 141/87 H O2 Saturation 100 Oxygen O2 Source [Without Activity] Room air O2 Source Room air - Labs Labs: Microbiology 05/30/18 00:35 Urine Culture - Preliminary Urine,Clean Catch CULTURE IN PROGRESS. RESULTS TO FOLLOW. Laboratory Tests 05/29/18 05/29/18 05/30/18 23:59 23:59 00:35 WBC 8.2 RBC 4.89 Hgb 12.6 Hct 40.0 MCV 81.7 MCH 25.7 L MCHC 31.4 L RDW 17.7 H Plt Count 243 MPV 8.5 Neut # (Auto) 5.9 Lymph # (Auto) 1.1 L [place] # (Auto) 0.9 Eos # (Auto) 0.2 Baso # (Auto) 0.1 Absolute Nucleated RBC 0.01 Nucleated RBC % 0.1 Sodium 138 Potassium 3.4 L Chloride 103 Carbon Dioxide 25 Anion Gap 10.0 BUN 46 H Creatinine 1.7 H Estimated GFR (MDRD) 29 L Glucose 71 Calcium 9.4 Total Bilirubin 1.0 AST 70 H ALT 153 H Alkaline Phosphatase 164 H Total Protein 6.0 L Albumin 3.5 Globulin 2.5 Albumin/Globulin Ratio 1.4 Lipase 51 Urine Color YELLOW Urine Clarity CLEAR Urine pH 5.5 Ur Specific [place] 1.025 Urine Protein 100 H Urine Glucose (UA) NEGATIVE Urine Ketones NEGATIVE Urine Occult Blood TRACE-LYSE Urine Nitrite NEGATIVE Urine Bilirubin NEGATIVE Urine Urobilinogen 0.2 (NORMAL) Ur Leukocyte Esterase TRACE H Urine RBC 0-5 Urine WBC 6-10 H Ur Squamous Epith Cells FEW Squamous Urine Bacteria Few Ur Microscopic Review INDICATED Urine Culture Comments INDICATED Serum Ketones NEGATIVE PD MEDICAL DECISION MAKING - ED course Complexity details: reviewed old records, reviewed results, re-evaluated patient, considered differential, d/w patient ED course: Mildly elevated LFTs (normal bilirubin). Kidney function tests are elevated but appear baseline compared to previous. She reported improvement in nausea after PO zofran and tolerated PO intake. I strongly emphasized to her the critical importance of taking her medications as prescribed. I instructed her to contact her primary care physician to arrange for next available appointment to discuss her ongoing symptoms. She expressed being unhappy that she was not subsequently allowed to sleep in the emergency department until later in the morning. Departure - Departure Disposition: 01 Home, Self Care Clinical Impression: Nausea Condition: Good Instructions: ED Nausea Vomiting Follow-Up: Felecia Paz MD [Primary Care Provider] - (Call this morning to arrange for next available appointment) Prescriptions: Ondansetron Odt [Zofran] 4 mg TL Q6H PRN #10 tablet PRN Reason: Nausea / Vomiting Discharge Date/Time: 05/30/18 02:48
[2018-05-29] MEDS ORDERED: ONDANSETRON ODT 4 MG TABLET TL STA (23:52)
[2018-05-30 00:16] LABS: BASOPHILS # (AUTO) 0.1 10^3/uL (0.0-0.1); BASOPHILS % (AUTO) 0.8 %; EOSINOPHILS # (AUTO) 0.2 10^3/uL (0.0-0.7); EOSINOPHILS % (AUTO) 2.7 %; HGB - HEMOGLOBIN 12.6 g/dL (12.0-16.0); LYMPHOCYTES # (AUTO) 1.1 10^3/uL (1.5-3.5); LYMPHOCYTES % (AUTO) 13.7 %; MEAN CORPUSCULAR HEMOGLOBIN 25.7 pg (27.0-31.0); MEAN CORPUSCULAR HGB CONC 31.4 g/dL (32.0-36.0); MEAN CORPUSCULAR VOLUME 81.7 fL (81.0-99.0); MEAN PLATELET VOLUME 8.5 fL (7.9-10.8); MONOCYTES # (AUTO) 0.9 10^3/uL (0.0-1.0); MONOCYTES % (AUTO) 10.6 %; NEUTROPHILS # (AUTO) 5.9 10^3/uL (1.5-6.6); NEUTROPHILS % (AUTO) 72.2 %; PLT - PLATELET COUNT 243 10^3/uL (130-450); RED BLOOD COUNT 4.89 10^6/uL (4.20-5.40); RED CELL DISTRIBUTION WIDTH 17.7 % (12.0-15.0); WHITE BLOOD COUNT 8.2 x10^3/uL (4.8-10.8)
[2018-05-30 00:35] LABS: KETONES, SERUM (ACETEST) NEGATIVE (NEGATIVE)
[2018-05-30 00:44] LABS: BILIRUBIN,URINE NEGATIVE (NEGATIVE); GLUCOSE, URINE (UA) NEGATIVE (NEGATIVE); KETONES,URINE (UA) NEGATIVE (NEGATIVE); LEUKOCYTE ESTERASE, URINE TRACE (NEGATIVE); NITRITE,URINE NEGATIVE (NEGATIVE); OCCULT BLOOD,URINE TRACE-LYSE (NEGATIVE); PH,URINE 5.5 PH (5.0-7.5); PROTEIN,URINE 100 mg/dL (NEGATIVE); UROBILINOGEN,URINE 0.2 (NORMAL) E.U./dL (NORMAL)
[2018-05-30 00:51] LABS: CLARITY,URINE CLEAR (CLEAR)
[2018-05-30 00:52] LABS: BACTERIA,URINE Few /HPF (None Seen); RBC,URINE 0-5 /HPF (0-5); SQUAMOUS EPITHELIAL CELL,UR FEW Squamous (<= Few)
[2018-05-30 00:53] LABS: ALBUMIN 3.5 g/dL (3.2-5.5); ALBUMIN/GLOBULIN RATIO 1.4 (1.0-2.2); ALKALINE PHOSPHATASE 164 IU/L (42-121); ALT ALANINE AMINOTRANSFERASE 153 IU/L (10-60); AST ASPARTATE AMINOTRANSFERASE 70 IU/L (10-42); BUN - BLOOD UREA NITROGEN 46 mg/dL (6-20); CALCIUM 9.4 mg/dL (8.5-10.3); CARBON DIOXIDE - CO2 25 mmol/L (21-32); CHLORIDE 103 mmol/L (101-111); CREATININE 1.7 mg/dL (0.4-1.0); GFR - MDRD 29 (>89); GLUCOSE 71 mg/dL (70-100); LIPASE 51 U/L (22-51); SODIUM 138 mmol/L (135-145)
[2018-05-30 02:29] VITALS: BP 141/87
[2018-05-30] MEDS ORDERED: ONDANSETRON ODT 4 MG Prepack 2 TL STA (02:32)
== END 2018-05-30 02:48 | disposition home or self-care (01) ==
LOC: EDUNIT# → ED 23:16
DX: R11.0 Nausea (principal); I11.0 Hypertensive heart disease with heart failure; I50.9 Heart failure, unspecified; I25.10 Atherosclerotic heart disease of native coronary artery without angina pectoris; I25.2 Old myocardial infarction; E11.51 Type 2 diabetes mellitus with diabetic peripheral angiopathy without gangrene; Z79.4 Long term (current) use of insulin
CPT/HCPCS: 36415; 80053; 81001; 82009; 83690; 85025; 87086; 93005; 99283; Q0162; 81003

== ENCOUNTER 2018-06-03 09:45 | Outpatient (CLI) | payer MEDICARE, MEDICAID | END 2018-06-03 09:46 | disposition critical access hospital (66) | LOC: EMS 09:45 | PROVIDERS: ATTEND Surgery | DX: R11.0 Nausea (principal); R53.1 Weakness; E11.9 Type 2 diabetes mellitus without complications; R60.0 Localized edema | CPT/HCPCS: A0425; A0429 ==

== ENCOUNTER 2018-06-03 09:51 | Emergency (ER) | payer MEDICARE, MEDICAID ==
[2018-06-03] MEDS ORDERED: SODIUM CHLORIDE 0.9% 1,000 ML IV ONE ×2 (11:14)
--- NOTE | 2018-06-03 11:21 | ED Physician Documentation ---
History of Present Illness - Stated complaint Stated Complaint: NAUSEA - Chief complaint Chief Complaint: Trauma Ext - History obtained from History obtained from: Patient, EMS - History of Present Illness Timing: Today Pain level max: 5 Pain level now: 5 Improved by: Rest Worsened by: Walking - Additonal information Additional information: 78-year-old female states that she stopped taking her medications 2 months ago because of persistent nausea. Has not followed up with her doctor. She states that her feet hurt this morning whether they are feeling better now. She is a diabetic. Does not check her blood sugars. No fevers. No vomiting. No diarrhea. 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 : Renal insuffiency HEENT: None Psych: Depression, Post traumatic stress disorder Musculoskeletal: Osteoarthritis Derm: None - Past Surgical History Past Surgical History: Yes Cardiovascular: Cardiac catheterization, Other HEENT: Tonsil/Adenoidectomy - Present Medications Home Medications: Ambulatory Orders Medication Instructions Recorded Confirmed Clopidogrel Bisulfate [Clopidogrel] 75 mg PO DAILY 06/19/17 05/15/18 Donepezil [Aricept] 5 mg PO DAILY 06/19/17 05/15/18 Insulin 70/30 Human [NovoLIN] 10 units SUBQ QDDINNER 06/19/17 05/15/18 Insulin 70/30 Human [NovoLIN] 20 units SUBQ QDBREAKFAST 06/19/17 05/15/18 Apixaban [Eliquis] 2.5 mg PO BID #60 tablet 06/22/17 05/15/18 Carvedilol [Coreg] 6.25 mg PO BID tablet 06/22/17 05/15/18 Isosorbide Mononitrate ER [Imdur] 30 mg PO DAILY #30 tablet 06/22/17 05/15/18 hydrALAZINE [Apresoline] 10 mg PO BID #60 tablet 06/22/17 05/15/18 Citalopram [CeleXA] 10 mg PO DAILY 02/06/18 05/15/18 Furosemide 40 mg PO DAILY 02/06/18 05/15/18 lamoTRIgine [LaMICtal] 25 mg PO DAILY 02/06/18 05/15/18 Acetaminophen/Cod 300/30 [Tylenol 1 each PO Q8H PRN #14 tablet 03/12/18 05/15/18 #3] Citalopram [CeleXA] 1 tab PO DAILY 03/12/18 05/15/18 Lisinopril 1 tab PO DAILY 03/12/18 05/15/18 Oxybutynin [Ditropan] 1 tab PO DAILY 03/12/18 05/15/18 Albuterol Sulfate [Proair Hfa 2 puffs INH Q4H PRN #1 inhaler 04/02/18 05/15/18 Inhaler] Ondansetron Odt [Zofran] 4 mg TL Q6H PRN #10 tablet 05/30/18 - Allergies Allergies/Adverse Reactions: Allergies Allergy/AdvReac Type Severity Reaction Status Date / Time bupropion Allergy Unknown Verified 06/03/18 10:00 spironolactone Allergy Unknown Verified 06/03/18 10:00 wheat Allergy Unknown Verified 05/29/18 23:21 - Social History Does the pt smoke?: No Smoking Status: Never smoker Does the pt drink ETOH?: No Does the pt have substance abuse?: No - Immunizations Immunizations are current?: No Immunizations: TDAP >10years/unknown - POLST Patient has POLST: Yes POLST Status: Full Code PD ED PE NORMAL - Vitals Vital signs reviewed: Yes - General General: Alert and oriented X 3, No acute distress - HEENT HEENT: Moist mucous membranes - Neck Neck: Supple, no meningeal sign - Cardiac Cardiac: RRR, Strong equal pulses - Respiratory Respiratory: No respiratory distress, Clear bilaterally - Abdomen Abdomen: Soft, Non tender, Non distended - Derm Derm: Warm and dry, No rash - Extremities Extremities: No calf tenderness / cord - Neuro Neuro: Alert and oriented X 3 - Psych Psych: Normal mood, Normal affect Results - Vitals Vitals: Vital Signs - 24 hr 06/03/18 06/03/18 06/03/18 09:58 12:44 15:07 Temperature 36.9 C 36.9 C Heart Rate 95 102 H 98 Respiratory 12 16 20 Rate Blood Pressure 150/81 H 150/91 H 131/72 H O2 Saturation 97 98 95 Oxygen O2 Source [Without Activity] Room air O2 Source Room air - EKG (time done) 1237 Rate: Rate (enter#) (101) Rhythm: Sinus tachycardia Anita: Normal Intervals: Normal GA QRS: Normal Ischemia: ST elevation c/w repol Compare to prior EKG: Unchanged from prior EKG (05/29/2018) - Labs Labs: Laboratory Tests 06/03/18 06/03/18 06/03/18 11:39 11:39 11:39 WBC 5.3 RBC 5.12 Hgb 13.1 Hct 42.0 MCV 82.1 MCH 25.6 L MCHC 31.2 L RDW 18.2 H Plt Count 189 MPV 9.1 Neut # (Auto) 4.1 Lymph # (Auto) 0.2 L [place] # (Auto) 0.9 Eos # (Auto) 0.0 Baso # (Auto) 0.0 Absolute Nucleated RBC 0.01 Nucleated RBC % 0.2 Manual Slide Review Indicated WBC Morphology NORMAL APPEARANCE Platelet Estimate NORMAL (130-450,000) Platelet Morphology RARE GIANT PLATELETS RBC Morph Micro Appear OVALOCYTES VBG pH 7.303 L VBG pCO2 42.9 VBG pO2 24.7 L VBG HCO3 20.8 L VBG Total CO2 22.1 L VBG O2 Saturation 38.5 L VBG Base Excess -5.4 L Sodium 133 L Potassium 5.8 H Chloride 100 L Carbon Dioxide 21 Anion Gap 12.0 BUN 44 H Creatinine 2.0 H Estimated GFR (MDRD) 24 L Glucose 290 H Calcium 9.7 Total Bilirubin 1.2 H AST 58 H ALT 82 H Alkaline Phosphatase 150 H Total Protein 6.8 Albumin 3.6 Globulin 3.2 Albumin/Globulin Ratio 1.1 Lipase 43 Urine Color Urine Clarity Urine pH Ur Specific [place] Urine Protein Urine Glucose (UA) Urine Ketones Urine Occult Blood Urine Nitrite Urine Bilirubin Urine Urobilinogen Ur Leukocyte Esterase Urine RBC Urine WBC Ur Squamous Epith Cells Urine Bacteria Urine Casts Ur Microscopic Review Urine Culture Comments Serum Ketones NEGATIVE 06/03/18 06/03/18 14:51 16:19 WBC RBC Hgb Hct MCV MCH MCHC RDW Plt Count MPV Neut # (Auto) Lymph # (Auto) [place] # (Auto) Eos # (Auto) Baso # (Auto) Absolute Nucleated RBC Nucleated RBC % Manual Slide Review WBC Morphology Platelet Estimate Platelet Morphology RBC Morph Micro Appear VBG pH VBG pCO2 VBG pO2 VBG HCO3 VBG Total CO2 VBG O2 Saturation VBG Base Excess Sodium 136 Potassium 5.2 H Chloride 104 Carbon Dioxide 21 Anion Gap 11.0 BUN 43 H Creatinine 1.9 H Estimated GFR (MDRD) 26 L Glucose 275 H Calcium 9.3 Total Bilirubin AST ALT Alkaline Phosphatase Total Protein Albumin Globulin Albumin/Globulin Ratio Lipase Urine Color YELLOW Urine Clarity CLEAR Urine pH 5.5 Ur Specific [place] >=1.030 H Urine Protein 100 H Urine Glucose (UA) 100 H Urine Ketones TRACE Urine Occult Blood SMALL H Urine Nitrite NEGATIVE Urine Bilirubin NEGATIVE Urine Urobilinogen 0.2 (NORMAL) Ur Leukocyte Esterase NEGATIVE Urine RBC 0-5 Urine WBC 4-5 Ur Squamous Epith Cells FEW Squamous Urine Bacteria None Seen Urine Casts 3-5 Hyaline Casts Ur Microscopic Review INDICATED Urine Culture Comments NOT INDICATED Serum Ketones PD MEDICAL DECISION MAKING - ED course Complexity details: reviewed results, re-evaluated patient, considered d ifferential, d/w patient ED course: Patient feels much better after IV fluids and insulin. Potassium decreased. No ischemic changes on EKG and no evidence of hyperkalemic changes. Patient is well-appearing, nontoxic. Ambulating well. Would like to go home at this time. Patient counseled regarding signs and symptoms for which I believe and urgent re-evaluation would be necessary. Patient with good understanding of and agreement to plan and is comfortable going home at this time This document was made in part using voice recognition software. While efforts are made to proofread this document, sound alike and grammatical errors may occur. Departure - Departure Disposition: 01 Home, Self Care Clinical Impression: Hyperkalemia, Dehydration Diabetes type 2, uncontrolled Qualifiers: Glycemic state: with hyperglycemia Qualified Code(s): E11.65 - Type 2 diabetes mellitus with hyperglycemia Condition: Good Instructions: ED Hyperglycemia Diabetic, ED Dehydration Follow-Up: Felecia Paz MD [Primary Care Provider] - Within 1 week Comments: Return if you worsen. You need to start taking your meds at home as prescribed.
[2018-06-03 11:53] LABS: BASOPHILS % (AUTO) 0.5 %; HGB - HEMOGLOBIN 13.1 g/dL (12.0-16.0); LYMPHOCYTES # (AUTO) 0.2 10^3/uL (1.5-3.5); LYMPHOCYTES % (AUTO) 4.4 %; MEAN CORPUSCULAR HEMOGLOBIN 25.6 pg (27.0-31.0); MEAN CORPUSCULAR HGB CONC 31.2 g/dL (32.0-36.0); MEAN CORPUSCULAR VOLUME 82.1 fL (81.0-99.0); MEAN PLATELET VOLUME 9.1 fL (7.9-10.8); MONOCYTES # (AUTO) 0.9 10^3/uL (0.0-1.0); MONOCYTES % (AUTO) 17.8 %; NEUTROPHILS # (AUTO) 4.1 10^3/uL (1.5-6.6); NEUTROPHILS % (AUTO) 77.3 %; PLT - PLATELET COUNT 189 10^3/uL (130-450); RED BLOOD COUNT 5.12 10^6/uL (4.20-5.40); RED CELL DISTRIBUTION WIDTH 18.2 % (12.0-15.0); VBG PCO2 42.9 mmHg (41-51); VBG PH 7.303 (7.31-7.41); VBG PO2 24.7 mmHg (25-47); WHITE BLOOD COUNT 5.3 x10^3/uL (4.8-10.8)
[2018-06-03 11:54] LABS: VBG BASE EXCESS -5.4 mmol/L (-2 - +2); VBG TOTAL CO2 22.1 mmol/L (24-29)
[2018-06-03 12:19] LABS: ALBUMIN 3.6 g/dL (3.2-5.5); ALBUMIN/GLOBULIN RATIO 1.1 (1.0-2.2); ALKALINE PHOSPHATASE 150 IU/L (42-121); ALT ALANINE AMINOTRANSFERASE 82 IU/L (10-60); AST ASPARTATE AMINOTRANSFERASE 58 IU/L (10-42); BILIRUBIN,TOTAL 1.2 mg/dL (0.2-1.0); BUN - BLOOD UREA NITROGEN 44 mg/dL (6-20); CALCIUM 9.7 mg/dL (8.5-10.3); CARBON DIOXIDE - CO2 21 mmol/L (21-32); CHLORIDE 100 mmol/L (101-111); GFR - MDRD 24 (>89); GLUCOSE 290 mg/dL (70-100); LIPASE 43 U/L (22-51); SODIUM 133 mmol/L (135-145); TOTAL PROTEIN 6.8 g/dL (6.7-8.2)
[2018-06-03 12:21] LABS: PLATELET ESTIMATE, MANUAL NORMAL (130-450,000) (NORMAL); PLATELET MORPHOLOGY RARE GIANT PLATELETS (NORMAL)
[2018-06-03] MEDS ORDERED: INSULIN REGULAR HUMAN 100 UNIT/1 ML 10 ML MDV SUBQ STA (12:28)
[2018-06-03 13:12] LABS: KETONES, SERUM (ACETEST) NEGATIVE (NEGATIVE)
[2018-06-03 15:09] VITALS: BP 131/72
[2018-06-03 15:27] LABS: BILIRUBIN,URINE NEGATIVE (NEGATIVE); CLARITY,URINE CLEAR (CLEAR); GLUCOSE, URINE (UA) 100 mg/dL (NEGATIVE); KETONES,URINE (UA) TRACE mg/dL (NEGATIVE); LEUKOCYTE ESTERASE, URINE NEGATIVE (NEGATIVE); NITRITE,URINE NEGATIVE (NEGATIVE); OCCULT BLOOD,URINE SMALL (NEGATIVE); PH,URINE 5.5 PH (5.0-7.5); PROTEIN,URINE 100 mg/dL (NEGATIVE); UROBILINOGEN,URINE 0.2 (NORMAL) E.U./dL (NORMAL)
[2018-06-03 15:44] LABS: BACTERIA,URINE None Seen /HPF (None Seen); CASTS, URINE 3-5 Hyaline Casts /LPF; RBC,URINE 0-5 /HPF (0-5); SQUAMOUS EPITHELIAL CELL,UR FEW Squamous (<= Few)
[2018-06-03 16:32] LABS: CALCIUM 9.3 mg/dL (8.5-10.3); CREATININE 1.9 mg/dL (0.4-1.0)
== END 2018-06-03 17:13 | disposition home or self-care (01) ==
LOC: EDUNIT# → EDBD → ED 09:51
DX: E87.5 Hyperkalemia (principal); E86.0 Dehydration; E11.65 Type 2 diabetes mellitus with hyperglycemia; Z79.4 Long term (current) use of insulin
CPT/HCPCS: 36415; 80048; 80053; 81001; 81003; 82009; 82803; 83690; 85025; 87086; 93005; 99283

== ENCOUNTER 2018-06-03 18:17 | Emergency (ER) | payer MEDICARE, MEDICAID ==
[2018-06-03 18:29] VITALS: BP 135/81
[2018-06-03] MEDS ORDERED: ACETAMINOPHEN 325 MG TABLET PO STA (18:36)
--- NOTE | 2018-06-03 18:38 | ED Physician Documentation ---
History of Present Illness - Stated complaint Stated Complaint: GLF/CONFUSION - Chief complaint Chief Complaint: Ext Problem - History obtained from History obtained from: Patient - History of Present Illness Timing: Today (This is a 78-year-old woman with dementia. She lives alone and my understanding is that she should be in a fpc does not have resources for same. She was here earlier in the day with elevated blood sugars, she was given IV fluids and that was fixed. She left here in improved condition. She returns, it sounds like she could not quite make across the street to her house. She complains of leg pain. She does not know if she fell today. 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 : Renal insuffiency HEENT: None Psych: Depression, Post traumatic stress disorder Musculoskeletal: Osteoarthritis Derm: None - Past Surgical History Past Surgical History: Yes Cardiovascular: Cardiac catheterization, Other HEENT: Tonsil/Adenoidectomy - Present Medications Home Medications: Ambulatory Orders Medication Instructions Recorded Confirmed Clopidogrel Bisulfate [Clopidogrel] 75 mg PO DAILY 06/19/17 05/15/18 Donepezil [Aricept] 5 mg PO DAILY 06/19/17 05/15/18 Insulin 70/30 Human [NovoLIN] 10 units SUBQ QDDINNER 06/19/17 05/15/18 Insulin 70/30 Human [NovoLIN] 20 units SUBQ QDBREAKFAST 06/19/17 05/15/18 Apixaban [Eliquis] 2.5 mg PO BID #60 tablet 06/22/17 05/15/18 Carvedilol [Coreg] 6.25 mg PO BID tablet 06/22/17 05/15/18 Isosorbide Mononitrate ER [Imdur] 30 mg PO DAILY #30 tablet 06/22/17 05/15/18 hydrALAZINE [Apresoline] 10 mg PO BID #60 tablet 06/22/17 05/15/18 Citalopram [CeleXA] 10 mg PO DAILY 02/06/18 05/15/18 Furosemide 40 mg PO DAILY 02/06/18 05/15/18 lamoTRIgine [LaMICtal] 25 mg PO DAILY 02/06/18 05/15/18 Acetaminophen/Cod 300/30 [Tylenol 1 each PO Q8H PRN #14 tablet 03/12/18 05/15/18 #3] Citalopram [CeleXA] 1 tab PO DAILY 03/12/18 05/15/18 Lisinopril 1 tab PO DAILY 03/12/18 05/15/18 Oxybutynin [Ditropan] 1 tab PO DAILY 03/12/18 05/15/18 Albuterol Sulfate [Proair Hfa 2 puffs INH Q4H PRN #1 inhaler 04/02/18 05/15/18 Inhaler] Ondansetron Odt [Zofran] 4 mg TL Q6H PRN #10 tablet 05/30/18 - Allergies Allergies/Adverse Reactions: Allergies Allergy/AdvReac Type Severity Reaction Status Date / Time bupropion Allergy Unknown Verified 06/03/18 10:00 spironolactone Allergy Unknown Verified 06/03/18 10:00 wheat Allergy Unknown Verified 05/29/18 23:21 - Social History Does the pt smoke?: No Smoking Status: Never smoker Does the pt drink ETOH?: No Does the pt have substance abuse?: No - Immunizations Immunizations are current?: No Immunizations: TDAP >10years/unknown - POLST Patient has POLST: Yes POLST Status: Full Code PD ED PE NORMAL - Vitals Vital signs reviewed: Yes - General General: Other (She is alert and oriented to person and place but not time or events) - Cardiac Cardiac: RRR, No murmur - Respiratory Respiratory: No respiratory distress, Clear bilaterally - Abdomen Abdomen: Non tender - Extremities Extremities: Other (No lesions or cellulitis of the feet or legs. No specific tenderness about the legs.) - Psych Psych: Normal mood, Normal affect Results - Vitals Vitals: Vital Signs - 24 hr 06/03/18 18:23 Temperature 35.3 C L Heart Rate 102 H Respiratory 18 Rate Blood Pressure 135/81 H O2 Saturation 96 Oxygen O2 Source [Without Activity] Room air O2 Source Room air - Labs Labs: Laboratory Tests 06/03/18 18:40 POC Whole Bld Glucose 232 H PD MEDICAL DECISION MAKING - ED course ED course: This is a 78-year-old demented woman who lives alone. My understanding is that she probably should be in a fpc but does not have resources for same. She complaints of subacute bilateral leg pain, there are no physical findings. She was administered Tylenol for this. Her blood sugar was 232, noting her labs done earlier in the day with improvement. I did asked the nurse to call [facility]PS, if there are not aware of her case they probably should be. Departure - Departure Disposition: 01 Home, Self Care Clinical Impression: Peripheral neurogenic pain Dementia Qualifiers: Dementia type: unspecified type Dementia behavioral disturbance: without behavioral disturbance Qualified Code(s): F03.90 - Unspecified dementia without behavioral disturbance Condition: Good Record reviewed to determine appropriate education?: Yes Instructions: Diabetes Type 2 Coping Comments: Call your doctor to arrange a follow-up appointment, make the next available appointment. In the interim, return anytime if worse or if new symptoms develop.
== END 2018-06-03 19:11 | disposition home or self-care (01) ==
LOC: ED 18:17
DX: E11.42 Type 2 diabetes mellitus with diabetic polyneuropathy (principal); E11.51 Type 2 diabetes mellitus with diabetic peripheral angiopathy without gangrene; F03.90 Unspecified dementia, unspecified severity, without behavioral disturbance, psychotic disturbance, mood disturbance, and anxiety; E87.5 Hyperkalemia; E86.0 Dehydration; E11.65 Type 2 diabetes mellitus with hyperglycemia; Z79.4 Long term (current) use of insulin; I11.0 Hypertensive heart disease with heart failure; I50.9 Heart failure, unspecified; Z79.01 Long term (current) use of anticoagulants
CPT/HCPCS: 36415; 80048; 80053; 81001; 82009; 82803; 83690; 85025; 93005; 96360; 99283; A9270; J1815; 81003; 87086

== ENCOUNTER 2018-06-04 08:46 | Outpatient (CLI) | payer MEDICARE, MEDICAID | END 2018-06-04 08:47 | disposition EMS.NT | LOC: EMS 08:46 | PROVIDERS: ATTEND Surgery | DX: R53.1 Weakness (principal) ==

== ENCOUNTER 2018-06-05 08:22 | Outpatient (CLI) | payer MEDICARE, MEDICAID ==
--- NOTE | 2018-06-05 10:25 | Ultrasound Report ---
Reason: NAUSEA,ELEVATED LFT'S Procedure Date: 06/05/2018 Accession Number: [id number] / [id number] Procedure: US - Abdomen Limited CPT Code: FULL RESULT: EXAM: ABDOMEN ULTRASOUND LIMITED, RUQ EXAM DATE: 06/05/2018 08:32 AM. CLINICAL HISTORY: Nausea, elevated LFTS. COMPARISON: ABDOMEN/PELVIS W/O 05/19/2015 9:35 AM. TECHNIQUE: Real-time scanning was performed with static images obtained. FINDINGS: Liver: Normal in size and echotexture. 14.6 cm. Main portal vein flow: Hepatopetal. Patent hepatic veins. Gallbladder: Normal. No stones, wall thickening, or sonographic Gambino's sign. Biliary System: CBD measures 2.3 mm. No intrahepatic or extrahepatic ductal dilatation. Other: Small slip of free fluid/ascites along the lateral liver. Small slip of free fluid along the inferolateral right kidney margin. IMPRESSION: 1. No evidence of cholecystitis. Liver normal in size and echotexture. 2. Small slip of free fluid/ascites over the right lobe of liver. 3. Small slip of free fluid adjacent to the lower pole right kidney of uncertain etiology. [facility]
== END 2018-06-05 08:23 | disposition home or self-care (01) ==
LOC: DI 08:22
PROVIDERS: ATTEND Internal Medicine
DX: R11.0 Nausea (principal); R10.9 Unspecified abdominal pain; R18.8 Other ascites
CPT/HCPCS: 76705

== ENCOUNTER 2018-06-05 21:24 | Outpatient (CLI) | payer SELFPAY | END 2018-06-05 21:25 | disposition EMS.NT | LOC: EMS 21:24 | PROVIDERS: ATTEND Surgery | DX: Z03.89 Encounter for observation for other suspected diseases and conditions ruled out (principal) ==

== ENCOUNTER 2018-06-11 11:40 | Outpatient (CLI) | payer MEDICARE, MEDICAID | END 2018-06-11 11:41 | disposition E | LOC: EMS 11:40 | PROVIDERS: ATTEND Surgery ==